=== PATIENT | male | born 1985 | race Caucasian/White ===

== ENCOUNTER 2017-03-26 10:32 | Outpatient (RCR) | payer MEDICARE, MEDICAID, SELFPAY ==
[2017-03-11 00:55] VITALS: BP 156/96; PULSE 74; RESP 18; TEMP 36.6; BMI 40.4
[2017-03-26 10:25] VITALS: BP 153/87; PULSE 82; RESP 16; TEMP 36.8; BMI 40.4
--- NOTE | 2017-03-26 17:59 | PN.PCM_ITS ---
Type of Wound Date of Service: 03/26/17 Chief Complaint: Nonhealing hidradenitis ulcers cluster lower anterior abdominal wall. History of Wound: Surgery 06/23/16 - Excision extensive hidradenitis involving skin and subcutaneous tissue and fascia with fascial closure lower anterior abdominal wall and pubic area and proximal anterior thighs with panniculectomy. Wound care - Silver. Operative culture - Acinetobacter baumannii, MRSA, Corynebacterium amycolatum/xer. He was placed on Doxycycline and has finished them. Another wound culture from 11/20/16 was done. It showed Staphylococcus aureus and Gram positive yony. He was placed on Levaquin. Another wound culture from 01/22/17 showed Staphylococcus aureus, MRSE, and Prevotella bivia and he was placed on Doxycycline and Flagyl. 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 The Doxycycline and Flagyl were stopped and he was placed on Levaquin. Prealbumin in the hospital on 06/24/15 was 18.4. He takes nutritional supplementation with protein to help the healing process. Today he denies fever. His appetite is average. He states he is not that hungry because of depression flareups. He hasn't seen anybody for this and is on no medication at the present time. He had a recent flareup of hidradenitis in his right inguinal area that is stable. Progress of Wound: Improved. - Physical Exam Vital Signs Temp Pulse Resp BP 98.2 F 82 16 153/87 H 03/26/17 10:25 03/26/17 10:25 03/26/17 10:25 03/26/17 10:25 Wound Measurements and Assessment - Nurse 1 - General Ulcer Measurement Start: 03/26/17 10:25 Freq: Status: Active Protocol: Activity Type Activity Date Activity User E-Sign Co-Sign Detail Recorded Client Recorded Date Recorded By Document 03/26/17 10:25 [facility] [id number] 03/26/17 10:35 BMF 03/26/17 10:25 Wound Center Nurse 1 [Ulcer Assessment Protocol: WC.WD.LOC] #1 Lower Abdomen cluster -Combined with other wound No -Current Size (cm) - Length 4.7 -Current Size (cm) - Width 2.1 -Current Size (cm) - Depth 0.2 -Total Square Cm 9.87 -Date of Last Picture (Recall this 03/26/17 field) -Photo Taken Yes -Tunneling No -Undermining/Tunneling No -Exudate Amt Medium (34-66%) -Exudate Type Serosanguineous -Wound Margin Distinct, Outline Attached -Granulation Amt Large (67-100%) -Granulation Quality Pale [place] -Slough/Fibrin Yes -Necrosis Amt Small (1-33%) -Necrotic Tissue Type Adherent Slough -Structure Exposed None/Limited to Skin Breakdown -Texture (Pauline-wound Skin Appearance) Scarring -Moisture (Pauline-wound Skin Appearance Assessed ) -Color (Pauline-wound Skin Appearance) Assessed -Temperature (Pauline-wound Skin No Abnormality Appearance) (Pt Warm) -Tenderness on Palpation (Pauline-wound Yes Skin Appearance) -Ulcer Cleansing Rinsed/ Irrigated with Saline -Foul Odor after Cleansing No -Anesthetic Used 4% Lidocaine Solution WC - Nurse 2 - General Ulcer CM Notes Start: 03/26/17 10:25 Freq: Status: Active Protocol: Activity Type Activity Date Activity User E-Sign Co-Sign Detail Recorded Client Recorded Date Recorded By Document 03/26/17 11:05 [id number] 03/26/17 11:08 03/26/17 11:05 Wound Center Nurse 2 [Procedure/Treatment] -Time 11:08 -Correct Patient Yes -Correct Side, Site, Position Yes -Correct Procedure Yes -Procedure Performed Yes -Type of Procedure Debridement -Clinical Debridement Subcutaneous -Post Debridement Size (cm) - Length 4.8 -Post Debridement Size (cm) - Width 2.1 -Post Debridement Size (cm) - Depth 0.2 -Total Square Cm 10.08 -Wound/Ulcer Outcome Not Healed -Ulcer Cleansing Rinsed/ Irrigated with Saline -Foul Odor after Cleansing No -Bioengineered Tissue No -Cetacaine [place] No -Bleeding Controlled with Pressure -Treatment Response Procedure Tolerated Well [See Physician Procedure note for Specifics] Pain Scale: 0-10 Numeric [Pain] -Is Patient Pain Free? Yes Debridement Note Post-Debridement Measurements/Treatment - Nurse 2 - General Ulcer CM Notes Start: 03/26/17 10:25 Freq: Status: Active Protocol: Activity Type Activity Date Activity User E-Sign Co-Sign Detail Recorded Client Recorded Date Recorded By Document 03/26/17 11:05 [id number] 03/26/17 11:08 JF 03/26/17 11:05 Wound Center Nurse 2 #1 Lower Abdomen cluster -Time 11:08 -Correct Patient Yes -Correct Side, Site, Position Yes -Correct Procedure Yes -Procedure Performed Yes -Type of Procedure Debridement -Clinical Debridement Subcutaneous -Post Debridement Size (cm) - Length 4.8 -Post Debridement Size (cm) - Width 2.1 -Post Debridement Size (cm) - Depth 0.2 -Total Square Cm 10.08 -Wound/Ulcer Outcome Not Healed -Ulcer Cleansing Rinsed/ Irrigated with Saline -Foul Odor after Cleansing No -Bioengineered Tissue No -Cetacaine [place] No -Bleeding Controlled with Pressure -Treatment Response Procedure Tolerated Well Pain Scale: 0-10 Numeric Is Patient Pain Free? Yes Wound debrided: #1 Lower anterior abdominal wall cluster. Laterality: Not Applicable Wound Grade/Stage: 3. Type of Debridement: Excisional debridement Anesthesia Used: 4% Lidocaine Solution Depth: Down to and including healthy tissue, in the subcutaneous layer Percentage of wound debrided: 100 Instrument Used: 5mm curette Tissue Removed: subcutaneous tissue. Severity: Fat Layer Exposed Amount of bleeding with debridement: Mild Bleeding Controlled with: Pressure Patient tolerated procedure well Assessment/Plan Assessment: 1. Nonhealing hidradenitis ulcers cluster lower anterior abdominal wall. 2. Hidradenitis bilateral inguinal areas extending onto pubic area. 3. Abdominal panniculus with panniculitis. 4. Abdominal wall skin crease intertrigo. 5. Family history of skin cancer. 6. Obesity. 7. s/p excision extensive hidradenitis involving skin and subcutaneous tissue and fascia with fascial closure lower anterior abdominal wall and pubic area and proximal anterior thighs with panniculectomy. 8. MRSA. 9. Right inguinal hidradenitis , stable. Plan: Continue Silver dressing changes three times per week to the ulcer cluster between the umbilicus and pubic area. His right inguinal flareup of hidradenitis is stable and will continue to observe. If it worsens then it would need to be excised. He finished the Doxycycline for Acinetobacter baumannii, and MRSA, and Corynebacterium amycolatum/xer from the OR. He had been on Doxycycline and Flagyl from the culture obtained on 01/22/17. It showed Staphylococcus aureus, MRSE, and Prevotella bivia. Those antibiotics were stopped when he was hospitalized for sepsis and had Listeria. He was placed on Levaquin. His Prealbumin from 06/23/16 was 18.4. He takes nutritional supplementation with protein to help the healing process. Followup 3 weeks. If these hidradenitis ulcers between the umbilicus and pubic area continue to recur, he will need further surgical debridement. It was noted the patient had a volar ganglion cyst right wrist. He is asymptomatic at this time. After his hidradenitis is under control with no more flareups, he states he will want to have this ganglion cyst evaluated and treated. Discussed his depression with him. He refuses medication since he doesn't like the way it makes him feel. He refuses to see a professional because they will want to place him on meds. He states he will be ok. Will discuss again at his next visit. He states he will think about it and he may call his PCP when he gets back home.
== END 2017-04-08 23:59 ==
LOC: WC 10:32
PROVIDERS: Visit Provider Surgery
DX: L73.2 Hidradenitis suppurativa (principal); M79.3 Panniculitis, unspecified; Z86.14 Personal history of Methicillin resistant Staphylococcus aureus infection; L30.4 Erythema intertrigo; E66.9 Obesity, unspecified; Z71.3 Dietary counseling and surveillance; L98.492 Non-pressure chronic ulcer of skin of other sites with fat layer exposed
CPT/HCPCS: 11042

== ENCOUNTER 2017-04-30 08:42 | Outpatient (RCR) | payer MEDICARE, MEDICAID, SELFPAY ==
[2017-04-09 01:11] VITALS: BP 153/87; PULSE 82; RESP 16; TEMP 36.8; BMI 40.4
[2017-04-30 09:12] VITALS: BP 156/80; PULSE 103; RESP 20; TEMP 37.5; BMI 40.4
--- NOTE | 2017-04-30 15:17 | PN.PCM_ITS ---
Type of Wound Date of Service: 04/30/17 Chief Complaint: Nonhealing hidradenitis ulcers cluster lower anterior abdominal wall. History of Wound: Surgery 06/23/16 - Excision extensive hidradenitis involving skin and subcutaneous tissue and fascia with fascial closure lower anterior abdominal wall and pubic area and proximal anterior thighs with panniculectomy. Wound care - Silver. Operative culture - Acinetobacter baumannii, MRSA, Corynebacterium amycolatum/xer. He was placed on Doxycycline and has finished them. Another wound culture from 11/20/16 was done. It showed Staphylococcus aureus and Gram positive yony. He was placed on Levaquin. Another wound culture from 01/22/17 showed Staphylococcus aureus, MRSE, and Prevotella bivia and he was placed on Doxycycline and Flagyl. 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 The Doxycycline and Flagyl were stopped and he was placed on Levaquin. Prealbumin in the hospital on 06/24/15 was 18.4. He takes nutritional supplementation with protein to help the healing process. Today he denies fever. His appetite is average. He states he is not that hungry because of depression flareups. He hasn't seen anybody for this and is on no medication at the present time. He had a recent flareup of hidradenitis in his right inguinal area that is stable. Progress of Wound: Improved. - Physical Exam Vital Signs Temp Pulse Resp BP 99.5 F H 103 H 20 H 156/80 H 04/30/17 09:12 04/30/17 09:12 04/30/17 09:12 04/30/17 09:12 Wound Measurements and Assessment - Nurse 1 - General Ulcer Measurement Start: 04/30/17 09:11 Freq: Status: Active Protocol: Activity Type Activity Date Activity User E-Sign Co-Sign Detail Recorded Client Recorded Date Recorded By Document 04/30/17 09:12 RAF [id number] 04/30/17 09:24 RAF 04/30/17 09:12 Wound Center Nurse 1 [Ulcer Assessment Protocol: [place].WD.LOC] #1 Lower Abdomen cluster -Combined with other wound Yes -Combined with (Name of Wound-Exactly LOWER ABDOMINAL as it is documented) CLUSTER -Current Size (cm) - Length 4.0 -Current Size (cm) - Width 2.0 -Current Size (cm) - Depth 0.1 -Total Square Cm 8.00 -Date of Last Picture (Recall this 04/30/17 field) -Photo Taken Yes -Epithelialization Small 1-33% -Tunneling No -Circular Undermining No -Classification - Thickness Full Thickness without Exposed Support Structure -Change in Wound Grade/Stage No Query Text:If change please identify the Stage/Grade in the comment (ie. S2 G3) -Exudate Amt Small (1-33%) -Exudate Type Serous -Wound Margin Distinct, Outline Attached -Granulation Amt Small (1-33%) -Granulation Quality Pale -Slough/Fibrin Yes -Necrosis Amt None Present (0 %) -Necrotic Tissue Type Adherent Slough -Structure Exposed None/Limited to Skin Breakdown -Texture (Pauline-wound Skin Appearance) Excoriation -Moisture (Pauline-wound Skin Appearance No Abnormality ) -Color (Pauline-wound Skin Appearance) No Abnormality -Temperature (Pauline-wound Skin No Abnormality Appearance) (Pt Warm) -Tenderness on Palpation (Pauline-wound No Skin Appearance) -Ulcer Cleansing Rinsed/ Irrigated with Saline -Foul Odor after Cleansing No -Anesthetic Used 4% Lidocaine Solution WC - Nurse 2 - General Ulcer CM Notes Start: 04/30/17 09:11 Freq: Status: Active Protocol: Activity Type Activity Date Activity User E-Sign Co-Sign Detail Recorded Client Recorded Date Recorded By Document 04/30/17 09:30 [id number] 04/30/17 09:31 04/30/17 09:30 Wound Center Nurse 2 [Procedure/Treatment] -Time 09:31 -Correct Patient Yes -Correct Side, Site, Position Yes -Correct Procedure Yes -Procedure Performed Yes -Type of Procedure Debridement -Clinical Debridement Subcutaneous -Post Debridement Size (cm) - Length 4.1 -Post Debridement Size (cm) - Width 2 -Post Debridement Size (cm) - Depth 0.1 -Total Square Cm 8.2 -Wound/Ulcer Outcome Not Healed -Ulcer Cleansing Rinsed/ Irrigated with Saline -Foul Odor after Cleansing No -Bioengineered Tissue No -Cetacaine [place] No -Bleeding Controlled with Pressure -Treatment Response Procedure Tolerated Well [See Physician Procedure note for Specifics] Pain Scale: 0-10 Numeric [Pain] -Is Patient Pain Free? Yes Debridement Note Post-Debridement Measurements/Treatment WC - Nurse 2 - General Ulcer CM Notes Start: 04/30/17 09:11 Freq: Status: Active Protocol: Activity Type Activity Date Activity User E-Sign Co-Sign Detail Recorded Client Recorded Date Recorded By Document 04/30/17 09:30 [email or web address] [id number] 04/30/17 09:31 [email or web address] 04/30/17 09:30 Wound Center Nurse 2 #1 Lower Abdomen cluster -Time 09:31 -Correct Patient Yes -Correct Side, Site, Position Yes -Correct Procedure Yes -Procedure Performed Yes -Type of Procedure Debridement -Clinical Debridement Subcutaneous -Post Debridement Size (cm) - Length 4.1 -Post Debridement Size (cm) - Width 2 -Post Debridement Size (cm) - Depth 0.1 -Total Square Cm 8.2 -Wound/Ulcer Outcome Not Healed -Ulcer Cleansing Rinsed/ Irrigated with Saline -Foul Odor after Cleansing No -Bioengineered Tissue No -Cetacaine [place] No -Bleeding Controlled with Pressure -Treatment Response Procedure Tolerated Well Pain Scale: 0-10 Numeric Is Patient Pain Free? Yes Wound debrided: #1 Lower anterior abdominal wall cluster. Laterality: Not Applicable Wound Grade/Stage: 3. Type of Debridement: Excisional debridement Anesthesia Used: 4% Lidocaine Solution Depth: Down to and including healthy tissue, in the subcutaneous layer Percentage of wound debrided: 100 Instrument Used: 3mm curette Tissue Removed: subcutaneous tissue. Severity: Fat Layer Exposed Amount of bleeding with debridement: Mild Bleeding Controlled with: Pressure Patient tolerated procedure well Assessment/Plan Assessment: 1. Nonhealing hidradenitis ulcers cluster lower anterior abdominal wall. 2. Hidradenitis bilateral inguinal areas extending onto pubic area. 3. Abdominal panniculus with panniculitis. 4. Abdominal wall skin crease intertrigo. 5. Family history of skin cancer. 6. Obesity. 7. s/p excision extensive hidradenitis involving skin and subcutaneous tissue and fascia with fascial closure lower anterior abdominal wall and pubic area and proximal anterior thighs with panniculectomy. 8. MRSA. 9. Right inguinal hidradenitis , stable. Plan: Continue Silver dressing changes three times per week to the ulcer cluster between the umbilicus and pubic area. His right inguinal flareup of hidradenitis is stable and will continue to observe. If it worsens then it would need to be excised. He finished the Doxycycline for Acinetobacter baumannii, and MRSA, and Corynebacterium amycolatum/xer from the OR. He had been on Doxycycline and Flagyl from the culture obtained on 01/22/17. It showed Staphylococcus aureus, MRSE, and Prevotella bivia. Those antibiotics were stopped when he was hospitalized for sepsis and had Listeria. He was placed on Levaquin. His Prealbumin from 06/23/16 was 18.4. He takes nutritional supplementation with protein to help the healing process. Followup 3 weeks. If these hidradenitis ulcers between the umbilicus and pubic area continue to recur, he will need further surgical debridement. It was noted the patient had a volar ganglion cyst right wrist. He is asymptomatic at this time. After his hidradenitis is under control with no more flareups, he states he will want to have this ganglion cyst evaluated and treated. Discussed his depression with him. He refuses medication since he doesn't like the way it makes him feel. He refuses to see a professional because they will want to place him on meds. He states he feels better at this time. He states he will call his PCP if his symptomatology worsens. Wrote a script for Levaquin since he states his ulcers respond to that antibiotic. He is scheduled to see Dr. Mcgovern in [place] this Sunday and a wound culture is planned. I told him to hold off on taking the Levaquin until his wound culture has been obtained by Dr. Mcgovern.
== END 2017-05-09 23:59 ==
LOC: WC 08:42
PROVIDERS: Visit Provider Surgery
DX: L73.2 Hidradenitis suppurativa (principal); Z86.14 Personal history of Methicillin resistant Staphylococcus aureus infection; L30.4 Erythema intertrigo; M79.3 Panniculitis, unspecified; E66.9 Obesity, unspecified; Z71.3 Dietary counseling and surveillance; L98.492 Non-pressure chronic ulcer of skin of other sites with fat layer exposed
CPT/HCPCS: 11042

== ENCOUNTER 2017-05-21 08:02 | Outpatient (RCR) | payer MEDICARE, MEDICAID, SELFPAY ==
[2017-04-30 09:12] VITALS: BP 156/80
[2017-05-10 00:44] VITALS: PULSE 103; RESP 20; TEMP 37.5
[2017-05-21 08:15] VITALS: BMI 40.4
--- NOTE | 2017-05-21 16:38 | PN.PCM_ITS ---
Type of Wound Date of Service: 05/21/17 Chief Complaint: Nonhealing hidradenitis ulcers cluster lower anterior abdominal wall. History of Wound: Surgery 06/23/16 - Excision extensive hidradenitis involving skin and subcutaneous tissue and fascia with fascial closure lower anterior abdominal wall and pubic area and proximal anterior thighs with panniculectomy. Wound care - Silver. Operative culture - Acinetobacter baumannii, MRSA, Corynebacterium amycolatum/xer. He was placed on Doxycycline and has finished them. Another wound culture from 11/20/16 was done. It showed Staphylococcus aureus and Gram positive yony. He was placed on Levaquin. Another wound culture from 01/22/17 showed Staphylococcus aureus, MRSE, and Prevotella bivia and he was placed on Doxycycline and Flagyl. 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 The Doxycycline and Flagyl were stopped and he was placed on Levaquin. Prealbumin in the hospital on 06/24/15 was 18.4. He takes nutritional supplementation with protein to help the healing process. Today he denies fever. His appetite is average. He states he is not that hungry because of depression flareups. He hasn't seen anybody for this and is on no medication at the present time. He had a recent flareup of hidradenitis in his right inguinal area that is stable. Progress of Wound: Improved. - Physical Exam Vital Signs Temp Pulse Resp BP 99.5 F H 103 H 20 H 156/80 H 05/10/17 00:44 05/10/17 00:44 05/10/17 00:44 04/30/17 09:12 General: Alert, Oriented x3 HEENT: PERRLA, EOMI Neck: Supple Lungs: Clear to auscultation Cardiovascular: Regular rate, Regular Rhythm Abdomen: Soft, Non-Distended Wound Measurements and Assessment WC - Nurse 1 - General Ulcer Measurement Start: 05/21/17 08:12 Freq: Status: Active Protocol: Activity Type Activity Date Activity User E-Sign Co-Sign Detail Recorded Client Recorded Date Recorded By Document 05/21/17 08:15 TM [id number] 05/21/17 08:18 TM 05/21/17 08:15 Wound Center Nurse 1 [Ulcer Assessment Protocol: [place].WD.LOC] #2 RIGHT ABDOMINAL FOLD HYDRADENTITIS -Combined with other wound No -Current Size (cm) - Length 0.5 -Current Size (cm) - Width 0.5 -Current Size (cm) - Depth 0.1 -Total Square Cm 0.25 -Date of Last Picture (Recall this 05/21/17 field) -Photo Taken Yes -Epithelialization Small 1-33% -Tunneling No -Undermining/Tunneling No -Circular Undermining No -Classification - Thickness Full Thickness without Exposed Support Structure -Exudate Amt Small (1-33%) -Exudate Type Serosanguineous -Wound Margin Distinct, Outline Attached -Granulation Amt Medium (34-66%) -Granulation Quality [place] -Slough/Fibrin Yes -Necrosis Amt None Present (0 %) -Necrotic Tissue Type Adherent Slough -Structure Exposed Fascia Fat Layer Exposed -Texture (Pauline-wound Skin Appearance) Scarring -Moisture (Pauline-wound Skin Appearance Dry/Scaly ) -Color (Pauline-wound Skin Appearance) Erythema -Temperature (Pauline-wound Skin No Abnormality Appearance) (Pt Warm) -Tenderness on Palpation (Pauline-wound No Skin Appearance) -Ulcer Cleansing Rinsed/ Irrigated with Saline -Foul Odor after Cleansing No -Anesthetic Used 5% Lidocaine Gel #1 Lower Abdomen cluster -Combined with other wound No -Current Size (cm) - Length 0 -Current Size (cm) - Width 0 -Current Size (cm) - Depth 0 -Total Square Cm 0 -Date of Last Picture (Recall this 05/21/17 field) -Photo Taken Yes -Epithelialization Large 67-100% -Tunneling No -Undermining/Tunneling No -Circular Undermining No -Classification - Thickness Full Thickness without Exposed Support Structure -Exudate Amt None Present (0 %) -Wound Margin Distinct, Outline Attached -Granulation Amt Large (67-100%) -Granulation Quality [place] -Slough/Fibrin No -Necrosis Amt None Present (0 %) -Structure Exposed None/Limited to Skin Breakdown -Texture (Pauline-wound Skin Appearance) Scarring -Moisture (Pauline-wound Skin Appearance Dry/Scaly ) -Color (Pauline-wound Skin Appearance) No Abnormality -Temperature (Pauline-wound Skin No Abnormality Appearance) (Pt Warm) -Tenderness on Palpation (Pauline-wound No Skin Appearance) -Ulcer Cleansing Rinsed/ Irrigated with Saline -Foul Odor after Cleansing No [Edema Assessment] -Lower Limb Edema Present No - Nurse 2 - General Ulcer CM Notes Start: 05/21/17 08:12 Freq: Status: Active Protocol: Activity Type Activity Date Activity User E-Sign Co-Sign Detail Recorded Client Recorded Date Recorded By Document 05/21/17 08:32 [id number] 05/21/17 08:33 05/21/17 08:32 Wound Center Nurse 2 [Procedure/Treatment] #2 RIGHT ABDOMINAL FOLD HYDRADENTITIS -Correct Patient No -Correct Side, Site, Position No -Correct Procedure No -Procedure Performed No -Post Debridement Size (cm) - Length 0 -Post Debridement Size (cm) - Width 0 -Post Debridement Size (cm) - Depth 0 -Total Square Cm 0 -Wound/Ulcer Outcome Healed- Epithelialized [See Physician Procedure note for Specifics] Pain Scale: 0-10 Numeric [Pain] -Is Patient Pain Free? Yes Neurological: Cranial nerves II-XII grossly intact Psych/Mental Status: Normal Affect, Appropriate Debridement Note Post-Debridement Measurements/Treatment WC - Nurse 2 - General Ulcer CM Notes Start: 05/21/17 08:12 Freq: Status: Active Protocol: Activity Type Activity Date Activity User E-Sign Co-Sign Detail Recorded Client Recorded Date Recorded By Document 05/21/17 08:32 [id number] 05/21/17 08:33 05/21/17 08:32 Wound Center Nurse 2 #2 RIGHT ABDOMINAL FOLD HYDRADENTITIS -Correct Patient No -Correct Side, Site, Position No -Correct Procedure No -Procedure Performed No -Post Debridement Size (cm) - Length 0 -Post Debridement Size (cm) - Width 0 -Post Debridement Size (cm) - Depth 0 -Total Square Cm 0 -Wound/Ulcer Outcome Healed- Epithelialized Pain Scale: 0-10 Numeric Is Patient Pain Free? Yes Wound debrided: #2 Lower anterior abdominal wall cluster. Laterality: Not Applicable Wound Grade/Stage: 3. No debridement was completed today - the ulcer has healed. Assessment/Plan Assessment: 1. Nonhealing hidradenitis ulcers cluster lower anterior abdominal wall. 2. Hidradenitis bilateral inguinal areas extending onto pubic area. 3. Abdominal panniculus with panniculitis. 4. Abdominal wall skin crease intertrigo. 5. Family history of skin cancer. 6. Obesity. 7. s/p excision extensive hidradenitis involving skin and subcutaneous tissue and fascia with fascial closure lower anterior abdominal wall and pubic area and proximal anterior thighs with panniculectomy. 8. MRSA. 9. Right inguinal hidradenitis , stable. Plan: Continue Silver dressing changes three times per week to the ulcer cluster between the umbilicus and pubic area. His right inguinal flareup of hidradenitis is stable and will continue to observe. If it worsens then it would need to be excised. He finished the Doxycycline for Acinetobacter baumannii, and MRSA, and Corynebacterium amycolatum/xer from the OR. He had been on Doxycycline and Flagyl from the culture obtained on 01/22/17. It showed Staphylococcus aureus, MRSE, and Prevotella bivia. Those antibiotics were stopped when he was hospitalized for sepsis and had Listeria. He was placed on Levaquin. His Prealbumin from 06/23/16 was 18.4. He takes nutritional supplementation with protein to help the healing process. Followup 3 weeks. If these hidradenitis ulcers between the umbilicus and pubic area continue to recur, he will need further surgical debridement. It was noted the patient had a volar ganglion cyst right wrist. He is asymptomatic at this time. After his hidradenitis is under control with no more flareups, he states he will want to have this ganglion cyst evaluated and treated. Discussed his depression with him. He refuses medication since he doesn't like the way it makes him feel. He refuses to see a professional because they will want to place him on meds. He states he feels better at this time. He states he will call his PCP if his symptomatology worsens. Wrote a script for Levaquin since he states his ulcers respond to that antibiotic. He is scheduled to see Dr. Mcgovern in [place] this Sunday and a wound culture is planned. I told him to hold off on taking the Levaquin until his wound culture has been obtained by Dr. Mcgovern.
== END 2017-06-06 23:59 ==
LOC: WC 08:02
PROVIDERS: Visit Provider Surgery
DX: L73.2 Hidradenitis suppurativa (principal); L30.4 Erythema intertrigo; E66.9 Obesity, unspecified; Z71.3 Dietary counseling and surveillance; Z86.14 Personal history of Methicillin resistant Staphylococcus aureus infection; M79.3 Panniculitis, unspecified
CPT/HCPCS: 99212; G0463

== ENCOUNTER 2018-04-16 08:47 | Inpatient (IN) | payer MEDICARE, MEDICAID, SELFPAY ==
[2018-03-14 14:51] VITALS: BMI 57.6
--- NOTE | 2018-04-15 23:10 | HP.PCM_ITS ---
History and Physical Date of Admission: 04/16/18 HISTORY OF PRESENT ILLNESS Comes in today for further evaluation of his longstanding hidradenitis in multiple areas. These include the scalp, the bilateral medial arms and axillary and chest wall areas, bilateral breasts, bilateral inguinal areas extending into the pubic area, the lower anterior abdominal wall skin crease and bilateral perianal area. He finished the excision of hidradenitis on his scalp with skin grafting, the most recent skin graft in 03/23. In 10/22 he underwent bilateral mastectomies for extensive hidradenitis. In 02/22, he underwent excision extensive hidradenitis involving skin and subcutaneous tissue lower anterior abdominal wall and pubic area with panniculectomy. He has had intermittent breakdown ulcerations in the lower anterior abdominal wall that have since healed. He denies any fever. He denies any trauma. He thinks he develops breakdown ulcerations from the elastic on his clothing. He presents at this time for further evaluation and treatment. PAST MEDICAL HISTORY Anemia Asthma Back pain Bone fracture Depression Gastrointestinal problem Hidradenitis Seasonal allergies Hypertension PAST SURGICAL HISTORY Hidradenitis surgery, multiple colonoscopy fracture of right ankle ALLERGIES Cephalosporins morphine Penicillins Sulfa (Sulfonamide Antibiotics) MEDICATIONS Trazodone HCl Fluoxetine [Prozac] Topiramate [Topamax] Diazepam [Valium] Ferrous Sulfate Hydromorphone HCl [Dilaudid] FAMILY HISTORY Mother - Hypertension, Kidney disease, Diabetes, Cancer of kidney Father - Hypertension Uncle - Colon cancer SOCIAL HISTORY Smoking Status: Never smoker alcohol intake: never substance use type: does not use REVIEW OF SYSTEMS General - Denies fever and weight loss. Has fatigue. Eyes - Denies cataracts and glaucoma. ENT - Denies nasal congestion and sore throat. Endocrine - Denies excessive thirst and urination. Has cold intolerance and heat intolerance. Skin - Denies skin cancer. Has extensive hidradenitis involving scalp, bilateral medial arms and axillary and chest wall areas, bilateral breasts, bilateral inguinal areas extending onto pubic area, lower anterior abdominal wall skin crease, and bilateral perianal area. Has family history of skin cancer. Musculoskeletal - Denies joint pain, joint stiffness, weakness of muscles and joints, and arthritis. Has back pain. Neuro - Denies headaches. Cardiovascular - Denies chest pain and shortness of breath with exertion. Has fatigue. Psych - Denies anxiety. Has depression. Respiratory - Denies chronic cough and shortness of breath. Has asthma. Gastrointestinal - Denies nausea, vomiting, diarrhea. Has constipation. Hematologic - Denies abnormal bruising and bleeding. Has anemia. Genitourinary - Denies hematuria and urinary frequency. PHYSICAL EXAMINATION General - Alert and Oriented HEENT - PERRL. EOMI. Throat is clear. No suspicious lesions noted. had extensive area of hidradenitis involving the occipital scalp extending onto parietal and temporal scalp areas that has been excised and skin grafted. Neck - Supple and nontender. No cervical adenopathy. No suspicious lesions noted. Chest Wall - Has extensive hidradenitis involving the lateral chest wall extending into the axillary areas. Induration present. Nontender. No acute abscess seen. Measures 20 x 20 cm for each side. Breasts - has healed incisions from previous bilateral mastectomies for his extensive breast hidradenitis. Lungs - Clear to auscultation. Heart - Regular rate and rhythm. Abdomen - Soft and nondistended. Has large abdominal incision after previous surgery. Has large abdominal panniculus and associated panniculitis. No inguinal adenopathy. Has intermittent abdominal wall skin crease intertrigo. Has extensive hidradenitis in bilateral inguinal areas extending onto the pubic area. Measures 25 cm on each side and 25 cm in the pubic area. Induration present. Nontender. No acute abscess seen. Rectal - Has extensive hidradenitis in his perianal area. Measures 20 cm bilaterally. No acute abscess seen. Induration present. Nontender. Extremities - FROM. No axillary adenopathy. Radial pulses are palpable. In his medial arms bilaterally are areas of extensive hidradenitis measuring 18 x 14 cm for each area. Extends into the axilla. Induration present. Nontender. No acute abscess seen. Neuro - CN II-XII grossly intact. Psych - Normal mood and affect. ASSESSMENT 1. Hidradenitis lower anterior abdominal wall skin crease. 2. Hidradenitis bilateral inguinal areas extending onto pubic area. 3. Abdominal panniculus with panniculitis. 4. Abdominal wall skin crease intertrigo. 5. Hidradenitis bilateral lateral chest wall extending into axillary areas. 6. Hidradenitis bilateral medial arms extending into axillary areas. 7. Hidradenitis bilateral axillary areas. 8. Hidradenitis bilateral perianal area. 9. Hidradenitis occipital and parietal scalp that has been excised and skin grafted. 10. Obesity. 11. Family history of skin cancer. PLAN Patient has intermittent breakdown ulcerations in his lower anterior abdominal wall and in his abdominal wall skin crease with associated intertrigo. At present, these ulcerations have since healed. He did undergo excision extensive hidradenitis involving skin and subcutaneous tissue lower anterior abdominal wall and pubic area with panniculectomy on 02/15/16. Recommend surgical preparation lower anterior abdominal wall with excisional debridement skin, subcutaneous tissue, and fascia for necrotizing soft tissue hidradenitis infections. Would leave the wound open and begin postop wound care with the VAC. Would send tissue to Pathology for analysis to rule out carcinoma and send tissue to Microbiology for culture. A positive culture may necessitate antibiotic therapy. Will treat him perioperatively with Vancomycin because of a resistant Staphylococcus in the past. Anticipate increased metabolic demands after the surgery. Will check a Prealbumin. Will need nutritional supplementation with protein to help the healing process. If there is a plateau in the healing process, can proceed with delayed secondary wound closure or with skin grafting. After discharge, he would [facility] [place] since it is closer to his home. The patient was informed of the risks and complications of the procedure including alternatives to surgery. These were discussed with the patient personally. The patient voices understanding and wishes to proceed. Some of the risks and complications were included in a form from the [employer] [place] [employer]. Surgery will be done under general anesthesia with an overnight stay at the hosp ital. Will discharge him when he is tolerating the dressing changes with oral analgesics.
[2018-04-16] VITALS (9 sets, daily range): BP systolic 111–141; BP diastolic 47–79; PULSE 68–87; RESP 14–18; TEMP 36.2–37.1; O2SAT 92–97; BMI 55.2
[2018-04-16] MEDS: Vancomycin IV 1,000 MG/200 ML BAG 200 MG IV (10:03)
--- NOTE | 2018-04-16 10:55 | HID_PTH ---
PATIENT: SHEILA NIELSON LOC: MS3 U#:[id number] AGE/SX: 32/M ROOM: MS319 RE04/16/[address]: Dr. Cosme Weinstein MD : 1985 BED: 1 DIS: 04/18/2018 SPEC #: [id number] RECD: 04/16/18 16:14 STATUS: JESSICA REMike #: [id number] ELIECER: 04/16/18 10:[address]: Cosme Weinstein DEPT: SURGICAL PATHOLOGY RECD BY: Anjel Cole ENTERED: 04/17/18 10:11 SP TYPE: Devint KRISHNA DR: No Primary Care Phys Tissues: Abdominal wall, NOS Procedures: Surgery Specimen Level III HEADER OPERATION: Surgical preparation abdominal wall with excisional debridement PRE-OP DIAGNOSIS: Hidradenitis lower anterior abdominal wall skin crease TISSUE SUBMITTED: Abdominal wall necrotizing hidradenitis MICROSCOPIC DIAGNOSIS Abdominal wall necrotizing hidradenitis: Pieces of skin with underlying tissue with focal chronic inflammation and foreign body giant cell reaction. MANUELA:ubaldo 04/18/18 COMMENT Please make reference to previous specimen ([id number]) skin and soft tissue of abdomen, excision with diagnosis of skin with underlying tissue containing extensive microabscess formation, granulation tissue and focal ruptured epidermal inclusion cysts with associated reactive changes and ([id number]) abdominal wall hidradenitis, excision with diagnosis of skin with underlying tissue with multifocal acute and chronic inflammation, abscess formation and foreign body giant cell reaction. MICROSCOPIC DESCRIPTION Slides are reviewed. GROSS DESCRIPTION Received in fixative is one container labeled with the patient's name and designated abdominal wall necrotizing hidradenitis. The specimen consists of multiple pieces of skin with underlying tissue that in aggregate measure 26 x 25 x 7 cm. No mass lesion is identified. Immigration Judge sections are submitted in three cassettes. / MANUELA:ubaldo 04/17/18 TC:3 CPT: 42131
--- NOTE | 2018-04-16 14:20 | PCM.IMDPSTOP ---
Immediate Post-Op Note Date of Procedure: 04/16/18 Primary Surgeon/Physician: Cosme Weinstein MD chief librarian branch: Keren Cobian. Pre-Operative Diagnosis: 1. Hidradenitis lower anterior abdominal wall skin crease. 2. Hidradenitis bilateral inguinal areas extending onto pubic area. 3. Abdominal panniculus with panniculitis. 4. Abdominal wall skin crease intertrigo. 5. Obesity. 6. Family history of skin cancer. Post-Operative Diagnosis: Same. Surgery/Procedure Performed:: Surgical preparation lower anterior abdominal wall and pubic area with excision skin and subcutaneous tissue for necrotizing soft tissue hidradenitis infection (798 cm2). Description of Surgical Findings:: Comes in today for further evaluation of his longstanding hidradenitis in multiple areas. These include the scalp, the bilateral medial arms and axillary and chest wall areas, bilateral breasts, bilateral inguinal areas extending into the pubic area, the lower anterior abdominal wall skin crease and bilateral perianal area. He finished the excision of hidradenitis on his scalp with skin grafting, the most recent skin graft in 03/23. In 10/22 he underwent bilateral mastectomies for extensive hidradenitis. In 02/22, he underwent excision extensive hidradenitis involving skin and subcutaneous tissue lower anterior abdominal wall and pubic area with panniculectomy. He has had intermittent breakdown ulcerations in the lower anterior abdominal wall that have since healed. He denies any fever. He denies any trauma. He thinks he develops breakdown ulcerations from the elastic on his clothing. Today he underwent surgical preparation lower anterior abdominal wall and pubic area with excision skin and subcutaneous tissue for necrotizing soft tissue hidradenitis infection (798 cm2). Size of defect lower anterior abdominal wall and pubic area - 57 x 14 x 9 cm. Estimated Blood Loss: 100 ml. Specimen's removed: 1. Lower anterior abdominal wall and pubic area hidradenitis to Pathology and Microbiology. 2. MRSA Wound DNA by PCR. Drains: None. Type of Anesthesia:: General - Admit VTE Documentation VTE Present on Admission: No VTE Mechan Device Prophylaxis: SCD's VTE Pharm Prophylaxis ordered?: Yes
--- NOTE | 2018-04-16 14:24 | OP.PN_ITS ---
Immediate Post-Op Note Date of Procedure: 04/16/18 Primary Surgeon/Physician: Cosme Weinstein MD dermatology physician assistant: Keren Cobian. Pre-Operative Diagnosis: 1. Hidradenitis lower anterior abdominal wall skin crease. 2. Hidradenitis bilateral inguinal areas extending onto pubic area. 3. Abdominal panniculus with panniculitis. 4. Abdominal wall skin crease intertrigo. 5. Obesity. 6. Family history of skin cancer. Post-Operative Diagnosis: Same. Surgery/Procedure Performed:: Surgical preparation lower anterior abdominal wall and pubic area with excision skin and subcutaneous tissue for necrotizing soft t issue hidradenitis infection (798 cm2). Description of Surgical Findings:: Comes in today for further evaluation of his longstanding hidradenitis in multiple areas. These include the scalp, the bilateral medial arms and axillary and chest wall areas, bilateral breasts, bilateral inguinal areas extending into the pubic area, the lower anterior abdominal wall skin crease and bilateral perianal area. He finished the excision of hidradenitis on his scalp with skin grafting, the most recent skin graft in 03/23. In 10/22 he underwent bilateral mastectomies for extensive hidradenitis. In 02/22, he underwent excision extensive hidradenitis involving skin and subcutaneous tissue lower anterior abdominal wall and pubic area with panniculectomy. He has had intermittent b reakdown ulcerations in the lower anterior abdominal wall that have since healed. He denies any fever. He denies any trauma. He thinks he develops breakdown ulcerations from the elastic on his clothing. Today he underwent surgical preparation lower anterior abdominal wall and pubic area with excision skin and subcutaneous tissue for necrotizing soft tissue hidradenitis infection (798 cm2). Size of defect lower anterior abdominal wall and pubic area - 57 x 14 x 9 cm. Estimated Blood Loss: 100 ml. Specimen's removed: 1. Lower anterior abdominal wall and pubic area hidradenitis to Pathology and Microbiology. 2. MRSA Wound DNA by PCR. Drains: None. Type of Anesthesia:: General - Admit VTE Documentation VTE Present on Admission: No VTE Mechan Device Prophylaxis: SCD's VTE Pharm Prophylaxis ordered?: Yes
[2018-04-16] MEDS: Lactated Ringers 1,000 ML 60 ML IV (16:03)
[2018-04-16] MEDS: Ondansetron 4 MG/2 ML Vial IV (16:08)
[2018-04-16] MEDS: HYDROmorphone 1 MG/ML Syringe IV ×3 (16:09→23:02)
[2018-04-16 16:33] LABS: Anion Gap 10 (5-15); BUN 18 mg/dL (7-18); BUN/Creat Ratio 15.9 RATIO (10-20); Calcium,Total 8.2 mg/dL (8.5-10.1); Chloride 106 mmol/L (98-107); Creatinine, Serum 1.13 mg/dL (0.70-1.30); EST Glomerular Filtration Rate 81 mL/min (>60); Est Glom Filt Rate - Afr Amer 98 mL/min (>60); Estimated Creatinine Clearance 111.14 ml/min; Glucose 114 mg/dL (74-106); Potassium 4.4 mmol/L (3.5-5.1); Sodium Level 141 mmol/L (136-145)
[2018-04-16 16:45] LABS: M R Staph aureus DNA By PCR Negative (Negative); Probe Check PASS; Staph aureus DNA By PCR NEGATIVE (Negative)
--- NOTE | 2018-04-16 18:05 | PCM.OPRPT ---
Report of Operation Date of Procedure: 04/16/18 Pre-Operative Diagnosis: 1. Hidradenitis lower anterior abdominal wall skin crease. 2. Hidradenitis bilateral inguinal areas extending onto pubic area. 3. Abdominal panniculus with panniculitis. 4. Abdominal wall skin crease intertrigo. 5. Obesity. 6. Family history of skin cancer. Post-Operative Diagnosis: Same. Surgery/Procedure Performed:: Surgical preparation lower anterior abdominal wall and pubic area with excision skin and subcutaneous tissue for necrotizing soft tissue hidradenitis infection (798 cm2). Description of Surgical Findings:: Comes in today for further evaluation of his longstanding hidradenitis in multiple areas. These include the scalp, the bilateral medial arms and axillary and chest wall areas, bilateral breasts, bilateral inguinal areas extending into the pubic area, the lower anterior abdominal wall skin crease and bilateral perianal area. He finished the excision of hidradenitis on his scalp with skin grafting, the most recent skin graft in 03/23. In 10/22 he underwent bilateral mastectomies for extensive hidradenitis. In 02/22, he underwent excision extensive hidradenitis involving skin and subcutaneous tissue lower anterior abdominal wall and pubic area with panniculectomy. He has had intermittent breakdown ulcerations in the lower anterior abdominal wall that have since healed. He denies any fever. He denies any trauma. He thinks he develops breakdown ulcerations from the elastic on his clothing. Patient was informed of the risks and complications of the procedure including alternatives to surgery. These were discussed with the patient personally. Patient voices understanding and wishes to proceed. Some of the risks and complications were included in a form from the [place] [employer]. Size of defect lower anterior abdominal wall and pubic area - 57 x 14 x 9 cm. signals collection technician: Keren Cobian. Type of Anesthesia:: General Specimen's removed: 1. Lower anterior abdominal wall and pubic area hidradenitis to Pathology and Microbiology. 2. MRSA Wound DNA by PCR. Drains: None. Estimated Blood Loss (mL): 100 ml. Description of Procedure: Patient was taken to OR in supine position and was placed under general anesthesia. The and abdominal wall and pubic area was prepped and draped in the usual fashion. SCD's were placed for DVT prophylaxis. Perioperative antibiotics were given intravenously. Using xylocaine with epinephrine, the lower anterior abdominal wall and pubic area was infiltrated. After waiting 5 minutes for the anesthetic to take effect, I made a large horizontal elliptical incision from the abdominal wall skin crease and pubic area inferiorly to just inferior to the umbilicus superiorly. This encompassed all the areas on his skin of chronic induration from previous hidradenitis infection. Dissection was carried down through the subcutaneous tissue and Gilmer's fascia down to the abdominal wall fascia. Extensive scar tissue was present extending to the abdominal wall indicative of chronic widespread infection. Some scattered areas of localized pus was seen. A lot of fat necrosis was seen with milky drainage with associated necrotizing soft tissue infection. Some of the tissue was sent to Microbiology for culture. The rest of the tissue was sent to Pathology for analysis to rule out carcinoma. An MRSA Wound DNA by PCR was also done because of his previous history of resistant Staph. The wound was irrigated with saline. Hemostasis was obtained with electrocautery. The size of the abdominal wall and pubic wound was 57 x 14 x 9 cm or 798 cm2. The wound was then dressed with Mepitel nonadherent dressing followed by Kerlix gauze and Betadine followed by dry Kerlix gauze and ABD pads compression dressing. Patient tolerated the procedure well and was sent to PACU in satisfactory condition. Patient will be sent upstairs for continued postop care. The VAC will be applied tomorrow. He will continue Vancomycin perioperatively for his previous history of resistant Staph. Grafts/Implants Used: None. - Complications None. - Admit VTE Documentation VTE Present on Admission: No VTE Mechan Device Prophylaxis: SCD's VTE Pharm Prophylaxis ordered?: Yes Code Visit Surgery Charges CPT - 31825 ICD-10 - L73.2, E65, M79.3, L30.4, M79.89, Z80.8, E66.01
[2018-04-16] MEDS: oxyCODONE 5 MG Tablet 10 MG PO ×2 (18:13→22:13)
--- NOTE | 2018-04-16 21:04 | PCM.RX.CS ---
Consult Pharmacy has been consulted to manage selected antiobiotic: Vancomycin Type of Consult: New start Suspected Infection: Skin/Soft tissue Prior Doses of Antibiotics Received/Current Regimen: Vancomycin 1000mg x1 preop given 04/16/18 at 1003 Labs: Sodium 141 mmol/L (136-145) 04/16/18 15:59 Potassium 4.4 mmol/L (3.5-5.1) 04/16/18 15:59 Chloride 106 mmol/L (98-107) 04/16/18 15:59 Carbon Dioxide 25.0 mmol/L (21.0-32.0) 04/16/18 15:59 Anion Gap 10 (5-15) 04/16/18 15:59 BUN 18 mg/dL (7-18) 04/16/18 15:59 Creatinine 1.13 mg/dL (0.70-1.30) 04/16/18 15:59 Est GFR (MDRD) Af Amer 98 mL/min (>60) 04/16/18 15:59 Est GFR (MDRD) Non-Af 81 mL/min (>60) 04/16/18 15:59 BUN/Creatinine Ratio 15.9 RATIO (10-20) 04/16/18 15:59 Glucose 114 mg/dL (74-106) H 04/16/18 15:59 Weight used for dosin kg Estimated Creatinine Clearance: 111ml/min Goal Trough: 10-15 mcg/mL Pharmacy Plan for Drug Dosing: Recommend Vancomycin 1750mg IV q12h starting 04/16/18 at 1900. Trough to be drawn before the 4th dose on 04/18/18 at 0630 Pharmacy Service will continue to monitor and adjust dosing as required. Follow-Up Labs: Trough Vancomycin - 04/18/18 at 0630 Labs to be done on [date and time ordered]: trough level 04/18/18 at 0630
[2018-04-16 22:12] LABS: Hemoglobin A1c 5.8 % (4.2-6.3)
[2018-04-16] MEDS: FLUoxetine 20 MG Capsule PO (22:13)
[2018-04-16] MEDS: Docusate Sodium 100 MG Capsule PO (22:13)
[2018-04-16] MEDS: diazePAM 5 MG Tablet PO (22:16)
--- NOTE | 2018-04-16 23:07 | NURSING ---
pt did well ambulating to bathroom to void and back to bed. see MAR for pain meds given.
[2018-04-17] MEDS: traZODone 50 MG Tablet PO ×2 (00:51→22:17)
[2018-04-17] MEDS: Lactated Ringers 1,000 ML 60 ML IV ×2 (02:32→23:51)
[2018-04-17] MEDS: Ondansetron 4 MG/2 ML Vial IV (02:32)
[2018-04-17] MEDS: HYDROmorphone 1 MG/ML Syringe IV ×5 (02:32→22:22)
[2018-04-17] MEDS: oxyCODONE 5 MG Tablet 10 MG PO ×2 (02:43→11:20)
[2018-04-17 03:03] VITALS: BP 140/93; PULSE 89; RESP 16; TEMP 36.9; O2SAT 94
[2018-04-17 06:37] LABS: Hematocrit 44.3 % (40-54); Hemoglobin 14.1 g/dl (13.0-16.5); Mean Corp Hgb Conc 31.8 g/gl (32-36); Mean Corpuscular Hgb 29.3 pg (27.0-32.0); Mean Corpuscular Volume 91.9 fL (80-94); Mean Platelet Vol. 10.2 fl (6.2-12.0); Platelet Count 310 K/mm3 (150-450); RBC Distribution Width CV 13.4 % (11.6-14.6); RBC Distribution Width SD 44.4 fl (35.1-43.9); Red Blood Count 4.82 M/mm3 (4.6-6.2); White Blood Count 17.2 K/mm3 (4.4-11.0)
[2018-04-17] MEDS: Enoxaparin 40 MG/0.4 ML Syringe SC (06:40)
[2018-04-17 06:49] LABS: Scan Indicated on CBC? Y/N NO
[2018-04-17 07:11] VITALS: O2SAT 94
[2018-04-17 07:16] LABS: ALB/GLOB Ratio 0.7 RATIO (0.9-2.4); AST(SGOT) 18 U/L (15-37); Alanine Aminotransfer ALT/SGPT 28 U/L (16-61); Albumin, Serum 3.3 g/dL (3.2-5.0); Alkaline Phosphatase 65 U/L (45-117); Anion Gap 11 (5-15); BUN 19 mg/dL (7-18); BUN/Creat Ratio 18.4 RATIO (10-20); Calcium,Total 7.9 mg/dL (8.5-10.1); Chloride 104 mmol/L (98-107); Creatinine, Serum 1.03 mg/dL (0.70-1.30); EST Glomerular Filtration Rate 90 mL/min (>60); Est Glom Filt Rate - Afr Amer 109 mL/min (>60); Estimated Creatinine Clearance 121.93 ml/min; Globulin 4.5 g/dL (2.2-4.2); Glucose 148 mg/dL (74-106); Prealbumin 27.9 mg/dL (20.0-40.0); Protein, Total 7.8 g/dL (6.4-8.2); Sodium Level 139 mmol/L (136-145)
[2018-04-17] MEDS: diazePAM 5 MG Tablet PO (09:38)
--- NOTE | 2018-04-17 09:55 | CASEMGMT ---
LIZZETTE MOTA Face to Face with patient for initial transition planning/care coordination assessment. RN NAKUL introduced self and role at [facility]. Patient lying in bed, alert and oriented. Patient willing to participate in assessment and is able to answer all questions appropriately. Care providers, pharmacy, and demographics verified. Patient wishes to discharge home with home health care with [facility]. Patient states he has no further needs or concerns at this time. CM to follow for discharge planning needs that may arise. PCP: None, Dr. Weinstein will need to follow for HHC. Patient states he has an appt to get established with PCP Specialists: None Preferred Pharmacy: [facility] Insurance: [employer] Prescription Benefit: Yes Living Will/HPOA: No LNOK: Mother Living Arrangements: Patient lives with mother in 1 story home, patient states he is independent at home. Transportation: Self/mother DME/HHC: Denies need for DME. Disposition Plan: Patient to discharge with HHC, family support, and follow-up plans in place. Mariely MABRY, RN, CM
[2018-04-17] MEDS: Docusate Sodium 100 MG Capsule PO ×2 (11:20→22:17)
[2018-04-17 11:30] VITALS: BP 146/90; PULSE 95; RESP 18; TEMP 36.7; O2SAT 92
--- NOTE | 2018-04-17 11:33 | NURSING ---
wound photo: lower abdomen
--- NOTE | 2018-04-17 16:24 | CASEMGMT ---
LIZZETTE MOTA called and sent referral to [facility]. [facility] is able to accept the patient with start of care on Sunday04/19/18. LIZZETTE MOTA will continue to follow this patient and plan for a safe discharge.
[2018-04-17 17:00] VITALS: BP 132/73; PULSE 104; RESP 18; TEMP 36.8; O2SAT 94
[2018-04-17 22:03] VITALS: BP 113/62; PULSE 100; RESP 18; TEMP 37.1; O2SAT 96
[2018-04-17] MEDS: FLUoxetine 20 MG Capsule PO (22:17)
[2018-04-17] MEDS: 0.9% NaCl Peripheral Flush Adult/Peds IV (22:23)
--- NOTE | 2018-04-17 22:28 | PCM.PN.SRG ---
Subjective: Postop #1 Patient is resting comfortably after the VAC was applied today with some pain. - Physical Exam General: Alert, Oriented x3 HEENT: PERRLA, EOMI Oral: Moist Mucosa Neck: Supple Abdomen: Soft, Non-Distended Skin: Ulcer/ Wound - Abdominal wall and pubic wound is stable. No active bleeding noted. VAC applied today. Neurological: Cranial nerves II-XII grossly intact Psych/Mental Status: Normal Affect, Appropriate Vital Signs Temp Pulse Resp BP Pulse Ox 98.8 F 100 18 113/62 96 04/17/18 22:03 04/17/18 22:03 04/17/18 22:03 04/17/18 22:03 04/17/18 22:03 Oxygen Flow Rate (L/min) 2 Oxygen Delivery Method Room Air Weight: 430 lb 5.477 oz Body Mass Index (BMI) 55.2 Intake and Output for Last 24 Hours 04/15/18 04/16/18 04/17/18 23:59 23:59 23:59 Intake Total 1827 / 1827 4638 / 4638 Output Total 550 / 550 Balance 1827 / 1827 4088 / 4088 Microbiology Past 72 Hours 04/16/18 14:43 Gram Stain - Final Tissue - Abdominal Wound Culture - Preliminary No growth-Final to follow Laboratory Tests Past 24 Hrs 04/17/18 04/17/18 05:56 05:56 WBC 17.2 H RBC 4.82 Hgb 14.1 Hct 44.3 MCV 91.9 MCH 29.3 MCHC 31.8 L RDW 13.4 RDW Differential 44.4 H Plt Count 310 MPV 10.2 Sodium 139 Potassium 5.0 Chloride 104 Carbon Dioxide 24.0 Anion Gap 11 BUN 19 H Creatinine 1.03 Estim Creat Clear Calc 121.93 Est GFR (MDRD) Af Amer 109 Est GFR (MDRD) Non-Af 90 BUN/Creatinine Ratio 18.4 Glucose 148 H Calcium 7.9 L Total Bilirubin 0.40 AST 18 ALT 28 Alkaline Phosphatase 65 Total Protein 7.8 Albumin 3.3 Globulin 4.5 H Albumin/Globulin Ratio 0.7 L Prealbumin 27.9 Medical Necessity - Tobacco Use Smoking Status: Never smoker Assessment/Plan All Active Problems (Last Updated 03/14/18 @ 15:17 by Marga Michel) Open wound anterior abdominal wall (Acute) Open wound of scalp, complicated (Acute) Infected surgical wound (Acute) Open wound of breast (Acute) 1. Hidradenitis lower anterior abdominal wall skin crease. 2. Hidradenitis bilateral inguinal areas extending onto pubic area. 3. Abdominal panniculus with panniculitis. 4. Abdominal wall skin crease intertrigo. 5. Obesity. 6. Family history of skin cancer. 7. s/p surgical preparation lower anterior abdominal wall and pubic area with excision skin and subcutaneous tissue for necrotizing soft tissue hidradenitis infection (798 cm2). 8. Open surgical hidradenitis wound lower anterior abdominal wall and pubic area. VAC applied today. It was painful. He still needed IV analgesia. Will wean to po analgesia in anticipation of discharge tomorrow. Operative cultures are pending. Continue Vancomycin. Plan on po antibiotics at discharge. Prealbumin was 27.9. Encourage nutritional supplementation with protein to help the healing process. After discharge, [facility] 2[facility]4 weeks since he is travelling from out of town. Encourage ambulation. Code Visit Inpatient E&M: 25018 Subs Hosp L1 - ICD-10 - L73.2, S31.109A, E65, M79.3, L30.4, M79.89, Z80.8, E66.01
[2018-04-18] MEDS: 0.9% NaCl Peripheral Flush Adult/Peds IV ×3 (02:53→10:00)
[2018-04-18] MEDS: HYDROmorphone 1 MG/ML Syringe IV ×3 (02:53→10:00)
[2018-04-18 04:17] VITALS: BP 128/70; PULSE 90; RESP 18; TEMP 36.9; O2SAT 95
[2018-04-18] MEDS: Enoxaparin 40 MG/0.4 ML Syringe SC (06:43)
[2018-04-18 07:10] LABS: Vancomycin, Trough Level < 0.8 ug/mL (5.0-15.0)
[2018-04-18] MEDS: Docusate Sodium 100 MG Capsule PO (07:46)
[2018-04-18 08:08] VITALS: O2SAT 92
[2018-04-18 09:44] VITALS: BP 126/67; PULSE 87; RESP 18; TEMP 37.3; O2SAT 97
[2018-04-18 09:47] VITALS: PULSE 100
[2018-04-18] MEDS: oxyCODONE 5 MG Tablet 10 MG PO (11:50)
--- NOTE | 2018-04-18 13:24 | PCM.PN.SRG ---
Subjective: Postop #2 Patient is resting comfortably. He is tolerating po analgesia. - Physical Exam General: Alert, Oriented x3 HEENT: PERRLA, EOMI Oral: Moist Mucosa Neck: Supple Abdomen: Soft, Non-Distended Skin: Ulcer/ Wound - abdominal wall and pubic wound is stable. VAC in place. Minimal drainage in the canister. Neurological: Cranial nerves II-XII grossly intact Psych/Mental Status: Normal Affect, Appropriate Vital Signs Temp Pulse Resp BP Pulse Ox 99.1 F 100 18 126/67 H 97 04/18/18 09:44 04/18/18 09:47 04/18/18 09:44 04/18/18 09:44 04/18/18 09:44 Oxygen Flow Rate (L/min) 2 Oxygen Delivery Method Room Air Weight: 430 lb 5.477 oz Body Mass Index (BMI) 55.2 Intake and Output for Last 24 Hours 04/16/18 04/17/18 04/18/18 23:59 23:59 23:59 Intake Total 1827 / 1827 4638 / 4638 2281 / 2281 Output Total 550 / 550 700 / 700 Balance 1827 / 1827 4088 / 4088 1581 / 1581 Microbiology Past 72 Hours 04/16/18 14:43 Gram Stain - Final Tissue - Abdominal Wound Culture - Preliminary No growth-Final to follow Anaerobic Culture - Preliminary Checking for anaerobes, further studies to follow. Laboratory Tests Past 24 Hrs 04/18/18 06:10 Vancomycin Trough < 0.8 L Medical Necessity - Tobacco Use Smoking Status: Never smoker Assessment/Plan All Active Problems (Last Updated 03/14/18 @ 15:17 by Marga Michel) Open wound anterior abdominal wall (Acute) Open wound of scalp, complicated (Acute) Infected surgical wound (Acute) Open wound of breast (Acute) 1. Hidradenitis lower anterior abdominal wall skin crease. 2. Hidradenitis bilateral inguinal areas extending onto pubic area. 3. Abdominal panniculus with panniculitis. 4. Abdominal wall skin crease intertrigo. 5. Obesity. 6. Family history of skin cancer. 7. s/p surgical preparation lower anterior abdominal wall and pubic area with excision skin and subcutaneous tissue for necrotizing soft tissue hidradenitis infection (798 cm2). 8. Open surgical hidradenitis wound lower anterior abdominal wall and pubic area. VAC in place. To be changed three times per week at 150 mmHg continuous suction. He is tolerating po analgesia. Discharge home today. Operative cultures are pending. Will stop the Vancomycin and discharge on Doxycycline. Prealbumin was 27.9. Encourage nutritional supplementation with protein to help the healing process. [facility] in 2-4 weeks since he is travelling from out of town. Wrote script for Doxycycline. Wrote scripts for Dilaudid, 4mg (60 tabs) and for Valium for spasm (30 tabs). Wrote script for Colace for constipation (60 tabs). Code Visit Inpatient E&M: [id number] Disch Hosp - ICD-10 - L73.2, S31.109A, E65, M79.3, L30.4, M79.89, Z80.8, E66.01
--- NOTE | 2018-04-18 13:28 | PCM.DC ---
You will use the following diet at home:: No restrictions, Other - encourage nutritional supplementation with protein to help the healing process. Discharge Activity: May Shower - on the days the vac is changed. May shower in (days): 2 - on the days the vac is changed. May resume sexual activity in: No Restrictions Weight Bearing Status: Weight bearing as tolerated Call your doctor if your incision/area has: Continuous Slow Oozing, Sudden Increased Bleeding, Increased Pain/ Swelling, Increased Redness, Foul Smelling Discharge, Swelling at the incision site Call your doctor if you observe: Fever of 101 or Higher, Coldness, Increased Pain, Shortness of breath, Chest pain, Calf discomfort, Uncontrolled pain Suture Line Care: - - vac changes three times per week at 150 mmHg continuous suction. Change Dressing in (Days):: 2 - vac changes three times per week. Cleanse incision/area with: Soap & Water - may cleanse the wound with soap and water at the time of the vac change., - - may shower on the days the vac is changed. Allergies/Adverse Reactions: Allergies morphine Allergy (Verified 04/15/18 15:28) Rash Sulfa (Sulfonamide Antibiotics) Allergy (Verified 04/15/18 15:28) Other GOT FEVER Medications to take at Discharge Trazodone HCl 50 mg PO QHS 07/20/14 Fluoxetine [Prozac] 20 mg PO QHS 09/28/15 Diazepam [Valium] 5 mg PO 4X/DAY PRN PRN #30 tab 04/18/18 Docusate Sodium [Colace] 100 mg PO BID #60 cap 04/18/18 Doxycycline [Vibramycin] 100 mg PO BID #21 cap 04/18/18 Hydromorphone HCl [Dilaudid] 4 - 8 mg PO 4X/DAY PRN PRN 7 Days #60 tab 04/18/18 The following prescriptions were given: Diazepam [Valium] 5 mg PO 4X/DAY PRN PRN #30 tab PRN Reason: Spasms Hydromorphone HCl [Dilaudid] 4 - 8 mg PO 4X/DAY PRN PRN 7 Days #60 tab PRN Reason: Pain Docusate Sodium [Colace] 100 mg PO BID #60 cap Doxycycline [Vibramycin] 100 mg PO BID #21 cap Primary Care Physician: Care Physician,No Primary [Primary Care Provider] - Test Results: Test results from this visit will be discussed in further detail at your follow-up appointment, if applicable. Please Follow Up With: Cosme Weinstein MD When: may 13, 2018 at [facility] [phone] for appt time. Proposed Discharge Date: 04/18/18
--- NOTE | 2018-04-18 13:32 | DCINST_ITS ---
You will use the following diet at home:: No restrictions, Other - encourage nutritional supplementation with protein to help the healing process. Discharge Activity: May Shower - on the days the vac is changed. May shower in (days): 2 - on the days the vac is changed. May resume sexual activity in: No Restrictions Weight Bearing Status: Weight bearing as tolerated Call your doctor if your incision/area has: Continuous Slow Oozing, Sudden Increased Bleeding, Increased Pain/ Swelling, Increased Redness, Foul Smelling Discharge, Swelling at the incision site Call your doctor if you observe: Fever of 101 or Higher, Coldness, Increased Pain, Shortness of breath, Chest pain, Calf discomfort, Uncontrolled pain Suture Line Care: - - vac changes three times per week at 150 mmHg continuous suction. Change Dressing in (Days):: 2 - vac changes three times per week. Cleanse incision/area with: Soap & Water - may cleanse the wound with soap and water at the time of the vac change., - - may shower on the days the vac is changed. Allergies/Adverse Reactions: Allergies morphine Allergy (Verified 04/15/18 15:28) Rash Sulfa (Sulfonamide Antibiotics) Allergy (Verified 04/15/18 15:28) Other GOT FEVER Medications to take at Discharge Trazodone HCl 50 mg PO QHS 07/20/14 Fluoxetine [Prozac] 20 mg PO QHS 09/28/15 Diazepam [Valium] 5 mg PO 4X/DAY PRN PRN #30 tab 04/18/18 Docusate Sodium [Colace] 100 mg PO BID #60 cap 04/18/18 Doxycycline [Vibramycin] 100 mg PO BID #21 cap 04/18/18 Hydromorphone HCl [Dilaudid] 4 - 8 mg PO 4X/DAY PRN PRN 7 Days #60 tab 04/18/18 The following prescriptions were given: Diazepam [Valium] 5 mg PO 4X/DAY PRN PRN #30 tab PRN Reason: Spasms Hydromorphone HCl [Dilaudid] 4 - 8 mg PO 4X/DAY PRN PRN 7 Days #60 tab PRN Reason: Pain Docusate Sodium [Colace] 100 mg PO BID #60 cap Doxycycline [Vibramycin] 100 mg PO BID #21 cap Primary Care Physician: Care Physician,No Primary [Primary Care Provider] - Test Results: Test results from this visit will be discussed in further detail at your follow- up appointment, if applicable. Please Follow Up With: Cosme Weinstein MD When: may 13, 2018 at [facility] [phone] for appt time. Proposed Discharge Date: 04/18/18
[2018-04-18] MEDS: diazePAM 5 MG Tablet PO (13:57)
--- NOTE | 2018-04-18 14:13 | NURSING ---
Pt switched over to the home VAC. pt and mother deny questions. pt has had the home VAC numerous times in the past.
== END 2018-04-18 14:30 | disposition home health service (06) | DRG 571 ==
LOC: ACINP 08:48 → MS3 04-17 06:15
PROVIDERS: Admitting Provider Surgery; Referring Provider Surgery; Visit Provider Surgery
PROC: 0JB80ZZ Excision of Abdomen Subcutaneous Tissue and Fascia, Open Approach (ICD-10-PCS; principal; 2018-04-16 10:40)
DX: L73.2 Hidradenitis suppurativa (principal); Z68.43 Body mass index [BMI] 50.0-59.9, adult; L30.4 Erythema intertrigo; Z80.8 Family history of malignant neoplasm of other organs or systems; E66.9 Obesity, unspecified; M79.3 Panniculitis, unspecified; Z23 Encounter for immunization
CPT/HCPCS: 36415; 80048; 80053; 80202; 83036; 84134; 85027; 87070; 87075; 87102; 87205; 87206; 87640; 88304; 97802; J7040; J7120; 90686; A4216; J2405; J3475; J3490

== ENCOUNTER 2018-05-27 09:35 | Outpatient (RCR) | payer MEDICARE, MEDICAID, SELFPAY ==
[2018-05-06 10:58] VITALS: BMI 55.2
[2018-05-27 11:16] VITALS: BP 155/94; PULSE 103; RESP 20; TEMP 37.2; BMI 53.8
--- NOTE | 2018-05-27 17:34 | PCM.WC.PN ---
Type of Wound Date of Service: 05/27/18 Chief Complaint: Open surgical hidradenitis wound lower anterior abdominal wall. History of Wound: Surgery 04/16/18 - Surgical preparation lower anterior abdominal wall and pubic area with excision skin and subcutaneous tissue for necrotizing soft tissue hidradenitis infection (798 cm2). Wound care - VAC. Operative culture - negative. He was treated perioperatively with Doxycycline. His local physician changed the Doxycycline to Cefadroxil because he had trouble tolerating the Doxycycline. Pathology - focal chronic inflammation and no carcinoma seen. His Prealbumin on 04/17/18 was 27.9. Encourage nutritional supplementation with protein to help the healing process. He denies fever. His appetite is good. Progress of Wound: Improved. - Physical Exam Vital Signs Temp Pulse Resp BP 98.9 F 103 H 20 H 155/94 H 05/27/18 11:16 05/27/18 11:16 05/27/18 11:16 05/27/18 11:16 Skin: - - on the right upper neck by the earlobe is a cystic lesion that has some surrounding redness. Measures 1.3 cm. No fluctuance. No purulent drainage. Mild tenderness. Wound Measurements and Assessment WC - Nurse 1 - General Ulcer Measurement Start: 05/27/18 11:07 Freq: Status: Active Protocol: Activity Type Activity Date Activity User E-Sign Co-Sign Detail Recorded Client Recorded Date Recorded By Document 05/27/18 11:16 MW [id number] 05/27/18 11:40 MW 05/27/18 11:16 Wound Center Nurse 1 [Ulcer Assessment] #3 LOWER ABDOMEN -Combined with other wound No -Current Size (cm) - Length 5.0 -Current Size (cm) - Width 56.5 -Current Size (cm) - Depth 3.4 -Total Square Cm 282.50 -Date of Last Picture (Recall this 05/27/18 field) -Photo Taken Yes -Epithelialization None Present -Tunneling No -Undermining/Tunneling No -Circular Undermining No -Exudate Amt Large -Exudate Type Serosanguineous -Wound Margin Distinct, Outline Attached -Granulation Amt Medium (34-66%) -Granulation Quality Red -Slough/Fibrin Yes -Necrosis Amt Medium (34-66%) -Necrotic Tissue Type Adherent Slough -Structure Exposed N/A -Texture (Pauline-wound Skin Appearance) Assessed Scarring -Moisture (Pauline-wound Skin Appearance No Abnormality ) Assessed -Color (Pauline-wound Skin Appearance) No Abnormality Assessed -Temperature (Pauline-wound Skin No Abnormality Appearance) (Pt Warm) -Tenderness on Palpation (Pauline-wound No Skin Appearance) -Ulcer Cleansing SOAP AND WATER -Foul Odor after Cleansing No -Anesthetic Used 4% Lidocaine Solution 5% Lidocaine Gel [Edema Assessment] -Lower Limb Edema Present No WC - Nurse 2 - General Ulcer CM Notes Start: 05/27/18 11:07 Freq: Status: Active Protocol: Activity Type Activity Date Activity User E-Sign Co-Sign Detail Recorded Client Recorded Date Recorded By Document 05/27/18 12:09 [id number] 05/27/18 12:10 05/27/18 12:09 Wound Center Nurse 2 [Procedure/Treatment] #3 LOWER ABDOMEN -Time 12:09 -Correct Patient Yes -Correct Side, Site, Position Yes -Correct Procedure Yes -Procedure Performed Yes -Type of Procedure Debridement -Clinical Debridement Subcutaneous -Post Debridement Size (cm) - Length 5.0 -Post Debridement Size (cm) - Width 56.6 -Post Debridement Size (cm) - Depth 3.5 -Total Square Cm 283.00 -Wound/Ulcer Outcome Not Healed -Ulcer Cleansing Rinsed/ Irrigated with Saline -Foul Odor after Cleansing No -Bioengineered Tissue No -Bleeding Controlled with Pressure -Offloading No -Treatment Response Procedure Tolerated Well [See Physician Procedure note for Specifics] Pain Scale: 0-10 Numeric [Pain] -Is Patient Pain Free? Yes Debridement Note Post-Debridement Measurements/Treatment - Nurse 2 - General Ulcer CM Notes Start: 05/27/18 11:07 Freq: Status: Active Protocol: Activity Type Activity Date Activity User E-Sign Co-Sign Detail Recorded Client Recorded Date Recorded By Document 05/27/18 12:09 [id number] 05/27/18 12:10 05/27/18 12:09 Wound Center Nurse 2 #3 LOWER ABDOMEN -Time 12:09 -Correct Patient Yes -Correct Side, Site, Position Yes -Correct Procedure Yes -Procedure Performed Yes -Type of Procedure Debridement -Clinical Debridement Subcutaneous -Post Debridement Size (cm) - Length 5.0 -Post Debridement Size (cm) - Width 56.6 -Post Debridement Size (cm) - Depth 3.5 -Total Square Cm 283.00 -Wound/Ulcer Outcome Not Healed -Ulcer Cleansing Rinsed/ Irrigated with Saline -Foul Odor after Cleansing No -Bioengineered Tissue No -Bleeding Controlled with Pressure -Offloading No -Treatment Response Procedure Tolerated Well Pain Scale: 0-10 Numeric Is Patient Pain Free? Yes Wound debrided: #3 Lower anterior abdominal wall. Laterality: Not Applicable Wound Grade/Stage: 2. Type of Debridement: Excisional debridement Anesthesia Used: 4% Lidocaine Solution Depth: Down to and including healthy tissue, in the subcutaneous layer Percentage of wound debrided: 100 Instrument Used: 5mm curette Tissue Removed: subcutaneous tissue. Severity: Fat Layer Exposed Amount of bleeding with debridement: Mild Bleeding Controlled with: Pressure Patient tolerated procedure well Assessment/Plan Assessment: 1. Hidradenitis lower anterior abdominal wall skin crease. 2. Open surgical hidradenitis wound lower anterior abdominal wall. 3. Hidradenitis bilateral inguinal areas extending onto pubic area. 4. Abdominal panniculus with panniculitis. 5. Abdominal wall skin crease intertrigo. 6. History of MRSA. 7. Obesity. 8. Family history of skin cancer. 9. Infected cystic lesion right upper neck by the earlobe. Plan: VAC was removed today. Wound shows good granulation tissue. No further evidence of infection. Does have some periwound irritation from the draping and from the VAC sponge. There is some residual odor as well. Will stop the VAC and start Dakin's dressing changes to help with the odor. Patient states the pain can be unbearable at times. He has been having problems with the wound care. He has enough pain medication at this time. The wound is more superficial, and can proceed with delayed closure with skin grafting. That may be safer than trying a complex secondary wound closure with his propensity for infection. He wants to pursue the skin graft surgery. He wants to wait until after 06/18 for the surgery since that is his birthday. Will discuss at his next visit. His Prealbumin on 04/17/18 was 27.9. Encourage nutritional supplementation with protein to help the healing process. His HgbA1c on 04/16/18 was 5.8. So he would be able to proceed with the skin grafting. Wrote a script for Cleocin for 14 days until his next visit for a new onset cyst with surrounding redness in his right upper neck by the earlobe. Discussed with him that if it worsens, it may need operative intervention with incision and drainage. Proceed with warm compresses prn to promote drainage. Followup 2 weeks. The patient was informed of the risks and complications of the procedure including alternatives to surgery. These were discussed with the patient personally. The patient voices understanding and wishes to proceed. Surgery will be done under general anesthesia with an overnight stay at the hospital.
== END 2018-06-06 23:59 ==
LOC: WC 09:35
PROVIDERS: Visit Provider Surgery
DX: L73.2 Hidradenitis suppurativa (principal); M79.3 Panniculitis, unspecified; Z86.14 Personal history of Methicillin resistant Staphylococcus aureus infection; E66.9 Obesity, unspecified; Z71.3 Dietary counseling and surveillance; L98.492 Non-pressure chronic ulcer of skin of other sites with fat layer exposed; L30.4 Erythema intertrigo
CPT/HCPCS: 11042; 11045; 99213; G0463

== ENCOUNTER 2018-06-20 15:57 | Inpatient (IN) | payer MEDICARE, MEDICAID, SELFPAY ==
[2018-06-10 09:52] VITALS: BMI 53.8
--- NOTE | 2018-06-19 23:20 | HP.PCM_ITS ---
History and Physical Date of Admission: 06/20/18 HISTORY OF PRESENT ILLNESS Comes in today for further evaluation of his nonhealing hidradenitis ulcer lower anterior abdominal wall that occurred after his recent surgery on 04/16/18 where he underwent surgical preparation lower anterior abdominal wall and pubic area with excision skin and subcutaneous tissue for necrotizing soft tissue hidradenitis infection (798 cm2). Postop he started with the VAC and stopped it secondary to pain. Wound care was changes to Dakin's dressing changes daily with improvement. His operative culture was negative. He was discharged on Doxycycline that was changed to Cefadroxil. His Prealbumin on 04/17/18 was 27.9. Encourage nutritional supplementation with protein to help the healing process. He denies fever. His appetite is good. He denies any trauma. He presents today for further operative debridement with skin grafting. PAST MEDICAL HISTORY Anemia Asthma Back pain Bone fracture Depression Gastrointestinal problem Hidradenitis Seasonal allergies Hypertension PAST SURGICAL HISTORY Hidradenitis surgery, multiple Surgical preparation lower anterior abdominal wall and pubic area with excision skin and subcutaneous tissue for necrotizing soft tissue hidradenitis infection (798 cm2) - 04/16/18 colonoscopy fracture of right ankle ALLERGIES Cephalosporins morphine Penicillins Sulfa (Sulfonamide Antibiotics) MEDICATIONS Trazodone HCl Fluoxetine [Prozac] Topiramate [Topamax] Diazepam [Valium] Ferrous Sulfate Hydromorphone HCl [Dilaudid] FAMILY HISTORY Mother - Hypertension, Kidney disease, Diabetes, Cancer of kidney Father - Hypertension Uncle - Colon cancer SOCIAL HISTORY Smoking Status: Never smoker alcohol intake: never substance use type: does not use REVIEW OF SYSTEMS General - Denies fever and weight loss. Has fatigue. Eyes - Denies cataracts and glaucoma. ENT - Denies nasal congestion and sore throat. Endocrine - Denies excessive thirst and urination. Has cold intolerance and heat intolerance. Skin - Denies skin cancer. Has extensive hidradenitis involving scalp, bilateral medial arms and axillary and chest wall areas, bilateral breasts, bilateral inguinal areas extending onto pubic area, lower anterior abdominal wall skin crease, and bilateral perianal area. Has family history of skin cancer. Has nonhealing hidradenitis ulcer lower anterior abdominal wall after recent surgical excision hidradenitis on 04/16/18. Musculoskeletal - Denies joint pain, joint stiffness, weakness of muscles and joints, and arthritis. Has back pain. Neuro - Denies headaches. Cardiovascular - Denies chest pain and shortness of breath with exertion. Has fatigue. Psych - Denies anxiety. Has depression. Respiratory - Denies chronic cough and shortness of breath. Has asthma. Gastrointestinal - Denies nausea, vomiting, diarrhea. Has constipation. Hematologic - Denies abnormal bruising and bleeding. Has anemia. Genitourinary - Denies hematuria and urinary frequency. PHYSICAL EXAMINATION General - Alert and Oriented HEENT - PERRL. EOMI. Throat is clear. No suspicious lesions noted. had extensive area of hidradenitis involving the occipital scalp extending onto parietal and temporal scalp areas that has been excised and skin grafted. Neck - Supple and nontender. No cervical adenopathy. No suspicious lesions noted. Chest Wall - Has stable hidradenitis involving the lateral chest wall extending into the axillary areas. Induration present. Nontender. No acute abscess seen. Measures 20 x 20 cm for each side. Breasts - has healed incisions from previous bilateral mastectomies for his extensive breast hidradenitis. Lungs - Clear to auscultation. Heart - Regular rate and rhythm. Abdomen - Soft and nondistended. Has nonhealing hidradenitis ulcer lower anterior abdominal wall. Tender to palpation. Granulation tissue present. Measures 51 x 3 x 0.2 cm. Had large abdominal panniculus with associated panniculitis. No inguinal adenopathy. Has stable hidradenitis scarring in bilateral inguinal areas. Induration present. Nontender. No acute abscess seen. Rectal - Has stable hidradenitis in his perianal area. Measures 20 cm b ilaterally. No acute abscess seen. Induration present. Nontender. Extremities - FROM. No axillary adenopathy. Radial pulses are palpable. In his medial arms bilaterally are areas of stable hidradenitis measuring 18 x 14 cm for each area. Extends into the axilla. Induration present. Nontender. No acute abscess seen. Neuro - CN II-XII grossly intact. Psych - Normal mood and affect. ASSESSMENT 1. Nonhealing hidradenitis ulcer lower anterior abdominal wall. 2. Hidradenitis lower anterior abdominal wall skin crease. 3. Hidradenitis bilateral inguinal areas extending onto pubic area. 4. Abdominal panniculus with panniculitis. 5. Abdominal wall skin crease intertrigo. 6. History of MRSA. 7. Obesity. 8. Family history of skin cancer. PLAN The nonhealing hidradenitis ulcer lower anterior abdominal wall has improved but he has had increased pain during the postop period. The pain improved with the Dakin's dressing changes, but the pain persisted. The dimensions of the ulcer has showed decreased healing and because there is a plateau in the healing process, it was recommended to proceed with delayed secondary wound closure with skin grafting. Will treat him perioperatively with Vancomycin because of his history of MRSA. Operative cultures will be obtained. A positive culture may necessitate antibiotic modification. Anticipate increased metabolic demands after the surgery. Will check a Prealbumin. Will need nutritional supplementation with protein to help the healing process. The patient was informed of the risks and complications of the procedure including alternatives to surgery. These were discussed with the patient personally. The patient voices understanding and wishes to proceed. Surgery will be done under general anesthesia with an overnight stay at the hospital.
[2018-06-20] VITALS (25 sets, daily range): BP systolic 101–145; BP diastolic 57–90; PULSE 53–91; RESP 12–18; TEMP 36.3–36.7; O2SAT 88–100; BMI 54.5
[2018-06-20] MEDS: Vancomycin IV 1,000 MG/200 ML BAG 200 MG IV (06:57)
--- NOTE | 2018-06-20 08:00 | HID_PTH ---
PATIENT: SHEILA NIELSON LOC: [facility] U#:[id number] AGE/SX: 33/M ROOM: [facility] RE06/20/[address]: Dr. Mary Carmen Pagan DO : 1985 BED: 1 DIS: 06/21/2018 SPEC #: [id number] RECD: 06/20/18 13:07 STATUS: JESSICA MEJIA #: [id number] ELIECER: 06/20/18 08:[address]: Cosme Weinstein DEPT: SURGICAL PATHOLOGY RECD BY: Ben May ENTERED: 06/20/18 13:26 SP TYPE: Joradenit KRISHNA DR: Esther [facility] Phys Tissues: Abdominal wall, NOS Procedures: Surgery Specimen Level III HEADER OPERATION: Abdominal wall excision debridement, hidradenitis ulcer with skin PRE-OP DIAGNOSIS: Nonhealing hidradenitis ulcer lower anterior abdominal wall; hidradenitis lower anterior abdominal wall skin crease, hidradenitis bilateral inguinal areas extending onto pubic area; abdominal wall skin crease intertrigo, abdominal panniculus with panniculitis TISSUE SUBMITTED: Hidradenitis abdominal wall MICROSCOPIC DIAGNOSIS Hidradenitis abdominal wall: Pieces of skin and underlying tissue with extensive ulceration, associated acute and chronic inflammation and granulation tissue reaction. MANUELA:ubaldo 06/21/18 MICROSCOPIC DESCRIPTION Slides are reviewed. GROSS DESCRIPTION Received in fixative is one container labeled with the patient's name and designated hidradenitis abdominal wall. The specimen consists of multiple irregular fragments of red-copeland soft tissue that in aggregate measure 3.5 x 3.2 x 0.2 cm. The specimen is totally submitted in three cassettes. / AM:ubaldo 06/20/18 TC:2 CPT: 75798
[2018-06-20] MEDS: Mupirocin Ointment 22gm Tube 1 APPLIC (11:30)
--- NOTE | 2018-06-20 11:58 | PCM.OPRPT ---
Report of Operation Date of Procedure: 06/20/18 Pre-Operative Diagnosis: 1. Nonhealing hidradenitis ulcer lower anterior abdominal wall. 2. Hidradenitis lower anterior abdominal wall skin crease. 3. Hidradenitis bilateral inguinal areas extending onto pubic area. 4. Abdominal panniculus with panniculitis. 5. Abdominal wall skin crease intertrigo. 6. History of MRSA. 7. Obesity. 8. Family history of skin cancer. Post-Operative Diagnosis: Same. Surgery/Procedure Performed:: Surgical preparation lower anterior abdominal wall with excisional debridement nonhealing hidradenitis ulcer with STSG reconstruction from the right flank (153 cm2). Description of Surgical Findings:: Comes in today for further evaluation of his nonhealing hidradenitis ulcer lower anterior abdominal wall that occurred after his recent surgery on 04/16/18 where he underwent surgical preparation lower anterior abdominal wall and pubic area with excision skin and subcutaneous tissue for necrotizing soft tissue hidradenitis infection (798 cm2). Postop he started with the VAC and stopped it secondary to pain. Wound care was changes to Dakin's dressing changes daily with improvement. His operative culture was negative. He was discharged on Doxycycline that was changed to Cefadroxil. His Prealbumin on 04/17/18 was 27.9. Encourage nutritional supplementation with protein to help the healing process. He denies fever. His appetite is good. He denies any trauma. He presents today for further operative debridement with skin grafting. Patient was informed of the risks and complications of the procedure including alternatives to surgery. These were discussed with the patient personally. Patient voices understanding and wishes to proceed. Size of skin graft lower anterior abdominal wall - 51 x 3 cm. IV Fluids - 2000 ml. I used Issa absorbable hemostat. Reference Number - [id number]. Lot Number - [id number]. Expiration - December 04, 2022. green belt: Keern Cobian. Type of Anesthesia:: General Specimen's removed: Nonhealing hidradenitis ulcer lower anterior abdominal wall to Pathology and Microbiology. Drains: Reed. Estimated Blood Loss (mL): 150 ml. Fluids Replaced: IV Fluids 2000 ml. Description of Procedure: Patient was taken to OR in supine position and was placed under general anesthesia. A bump was placed underneath the right hip to gain better access to the right flank for the donor skin. The abdominal wall was prepped and draped in the usual fashion. SCD's were placed for DVT prophylaxis. Perioperative antibiotics were given intravenously. Using xylocaine with epinephrine, the right flank area was infiltrated. After waiting 5 minutes for the anesthetic to take effect, I excised an ellipse of skin into the subcutaneous tissue. The subcutaneous tissue was removed from the undersurface of the dermis including some of the deeper dermis thus fashioning a thick split thickness skin graft. The skin graft was placed in saline. Some of the underlying subcutaneous tissue was excised to aid in wound closure. Hemostasis was obtained with electrocautery. The wound was irrigated with saline. A size 15 Reed drain was placed through a separate stab incision inferolaterally and secured to the skin with 3-0 Nylon suture. I sprayed Issa absorbable hemostat into the wound to minimize seroma formation. The donor incision was then closed in a multiple layered fashion with 2-0 Vicryl figure of eight interrupted sutures for the Gilmer's fascial layer. The deep dermis and subcutaneous tissue was approximated with 2-0 Vicryl interrupted sutures. The skin was approximated with 3-0 Monocryl running subcuticular suture and 3-0 Prolene vertical mattress sutures. I then excised the nonhealing hidradenitis ulcer lower anterior abdominal wall with a scalpel and a large curette. Good bleeding was noted. Some of the tissue was sent to Pathology for analysis to rule out carcinoma and to Microbiology for culture. A positive culture will necessitate antibiotic therapy. Hemostasis was obtained with electrocautery. The wound was irrigated with saline. The size of the ulcer for the skin graft measures 51 x 3 cm or 153 cm2. The skin graft was placed on stretch and it was meshed with a size 15 scalpel. The thick split thickness skin graft was then placed on the lower anterior abdominal wall and secured to the skin edge with 3-0 Monocryl simple interrupted sutures. 3-0 Monocryl suture and 2-0 Vicryl suture were also used for central quilting stabilization. Antibiotic ointment was applied to the skin graft followed by Xeroform gauze and 4x4 gauze soaked in saline and secured to the skin with 3-0 Nylon as a tie over stent suture dressing. Antibiotic ointment was also applied to the donor incision right flank followed by Kerlix gauze. Dry Kerlix gauze was also applied over the skin graft dressing followed by ABD pads. Patient tolerated the procedure well and was sent to PACU in satisfactory condition. Patient will be sent upstairs for continued postop care. He will be discharged home tomorrow on antibiotics and pain medication. Grafts/Implants Used: None. - Complications None. - Admit VTE Documentation VTE Present on Admission: No VTE Mechan Device Prophylaxis: SCD's VTE Pharm Prophylaxis ordered?: Yes Code Visit Surgery Charges CPT - 24892 ICD-10 - L98.492, L73.2, E65, M79.3, L30.4, Z86.14, E66.01, Z80.8 75939 L98.492, L73.2, E65, M79.3, L30.4, Z86.14, E66.01, Z80.8 [id number] L98.492, L73.2, E65, M79.3, L30.4, Z86.14, E66.01, Z80.8 53465 L98.492, L73.2, E65, M79.3, L30.4, Z86.14, E66.01, Z80.8
--- NOTE | 2018-06-20 12:08 | OP.PCM_ITS ---
Report of Operation Date of Procedure: 06/20/18 Pre-Operative Diagnosis: 1. Nonhealing hidradenitis ulcer lower anterior abdominal wall. 2. Hidradenitis lower anterior abdominal wall skin crease. 3. Hidradenitis bilateral inguinal areas extending onto pubic area. 4. Abdominal panniculus with panniculitis. 5. Abdominal wall skin crease intertrigo. 6. History of MRSA. 7. Obesity. 8. Family history of skin cancer. Post-Operative Diagnosis: Same. Surgery/Procedure Performed:: Surgical preparation lower anterior abdominal wall with excisional debridement nonhealing hidradenitis ulcer with STSG reconstruction from the right flank (153 cm2). Description of Surgical Findings:: Comes in today for further evaluation of his nonhealing hidradenitis ulcer lower anterior abdominal wall that occurred after his recent surgery on 04/16/18 where he underwent surgical preparation lower anterior abdominal wall and pubic area with excision skin and subcutaneous tissue for necrotizing soft tissue hidradenitis infection (798 cm2). Postop he started with the VAC and stopped it secondary to pain. Wound care was changes to Dakin's dressing changes daily with improvement. His operative culture was negative. He was discharged on Doxycycline that was changed to Cefadroxil. His Prealbumin on 04/17/18 was 27.9. Encourage nutritional supplementation with protein to help the healing process. He denies fever. His appetite is good. He denies any trauma. He presents today for further operative debridement with skin grafting. Patient was informed of the risks and complications of the procedure including alternatives to surgery. These were discussed with the patient personally. Patient voices understanding and wishes to proceed. Size of skin graft lower anterior abdominal wall - 51 x 3 cm. IV Fluids - 2000 ml. I used Issa absorbable hemostat. Reference Number - [id number]. Lot Number - [id number]. Expiration - December 04, 2022. vortex operator: Keren Cobian. Type of Anesthesia:: General Specimen's removed: Nonhealing hidradenitis ulcer lower anterior abdominal wall to Pathology and Microbiology. Drains: Reed. Estimated Blood Loss (mL): 150 ml. Fluids Replaced: IV Fluids 2000 ml. Description of Procedure: Patient was taken to OR in supine position and was placed under general anesthesia. A bump was placed underneath the right hip to gain better access to the right flank for the donor skin. The abdominal wall was prepped and draped in the usual fashion. SCD's were placed for DVT prophylaxis. Perioperative antibiotics were given intravenously. Using xylocaine with epinephrine, the right flank area was infiltrated. After waiting 5 minutes for the anesthetic to take effect, I excised an ellipse of skin into the subcutaneous tissue. The subcutaneous tissue was removed from the undersurface of the dermis including some of the deeper dermis thus fashioning a thick split thickness skin graft. The skin graft was placed in saline. Some of the underlying subcutaneous tissue was excised to aid in wound closure. Hemostasis was obtained with electrocautery. The wound was irrigated with saline. A size 15 Reed drain was placed through a separate stab incision inferolaterally and secured to the skin with 3-0 Nylon suture. I sprayed Issa absorbable hemostat into the wound to minimize seroma formation. The donor incision was then closed in a multiple layered fashion with 2-0 Vicryl figure of eight interrupted sutures for the Gilmer's fascial layer. The deep dermis and subcutaneous tissue was approximated with 2-0 Vicryl interrupted sutures. The skin was approximated with 3-0 Monocryl running subcuticular suture and 3-0 Prolene vertical mattress sutures. I then excised the nonhealing hidradenitis ulcer lower anterior abdominal wall with a scalpel and a large curette. Good bleeding was noted. Some of the tissue was sent to Pathology for analysis to rule out carcinoma and to Microbiology for culture. A positive culture will necessitate antibiotic therapy. Hemostasis was obtained with electrocautery. The wound was irrigated with saline. The size of the ulcer for the skin graft measures 51 x 3 cm or 153 cm2. The skin graft was placed on stretch and it was meshed with a size 15 scalpel. The thick split thickness skin graft was then placed on the lower anterior abdominal wall and secured to the skin edge with 3-0 Monocryl simple interrupted sutures. 3-0 Monocryl suture and 2-0 Vicryl suture were also used for central quilting stabilization. Antibiotic ointment was applied to the skin graft followed by Xeroform gauze and 4x4 gauze soaked in saline and secured to the skin with 3-0 Nylon as a tie over stent suture dressing. Antibiotic ointment was also applied to the donor incision right flank followed by Kerlix gauze. Dry Kerlix gauze was also applied over the skin graft dressing followed by ABD pads. Patient tolerated the procedure well and was sent to PACU in satisfactory condition. Patient will be sent upstairs for continued postop care. He will be discharged home tomorrow on antibiotics and pain medication. Grafts/Implants Used: None. - Complications None. - Admit VTE Documentation VTE Present on Admission: No VTE Mechan Device Prophylaxis: SCD's VTE Pharm Prophylaxis ordered?: Yes Code Visit Surgery Charges CPT - 24486 ICD-10 - L98.492, L73.2, E65, M79.3, L30.4, Z86.14, E66.01, Z80.8 76932 L98.492, L73.2, E65, M79.3, L30.4, Z86.14, E66.01, Z80.8 64336 L98.492, L73.2, E65, M79.3, L30.4, Z86.14, E66.01, Z80.8 32981 L98.492, L73.2, E65, M79.3, L30.4, Z86.14, E66.01, Z80.8
--- NOTE | 2018-06-20 12:55 | PCM.RX.CS ---
Consult Pharmacy has been consulted to manage selected antiobiotic: Vancomycin Type of Consult: New start Suspected Infection: Skin/Soft tissue Prior Doses of Antibiotics Received/Current Regimen: Medications Discontinued Medications Vancomycin HCl (Vancomycin) 1,000 mg in 200 mls @ 200 mls/hr IV PREOP ONE Stop: 06/20/18 07:59 Last Admin: 06/20/18 06:57 Dose: 200 mls/hr Weight used for dosin kg Goal Trough: 10-15 mcg/mL Pharmacy Plan for Drug Dosing: Goal vancomycin trough 10-15 mcg/mL. Patient received 1000mg IV preop, recommend load with 2000mg IV, continue 1500mg IV q12h based on previous dosing for est trough 13 mcg/mL. Patient has received this exact same regimen in the past with trough results in goal range. Check prior to 4th dose. Pharmacy Service will continue to monitor and adjust dosing as required. Follow-Up Labs: Trough Vancomycin - 06/21 @ 2130
[2018-06-20] MEDS: Albuterol 2.5 MG/3 ML VIAL.NEB. INHALATION (14:12)
[2018-06-20 14:36] LABS: HIV - WCH Non-Reactive (Nonreactive)
--- NOTE | 2018-06-20 16:08 | CON.PCM_ITS ---
Problem List (1) Acute hypoxic respiratory failure Status: Acute (2) Open wound anterior abdominal wall Status: Acute Comment: open surgical hidradenitis wound lower anterior abdominal wall and pubic area (3) Necrotizing soft tissue infection Status: Chronic Comment: necrotizing soft tissue hidradenitis infection lower anterior abdominal wall and pubic area (4) Malnutrition of moderate degree Status: Chronic Comment: E44.0 (5) Morbid obesity with body mass index (BMI) of 40.0 to 44.9 in adult Status: Chronic Comment: E66.01 his BMI is 44.5 from recent weight loss from 414 to 335 lbs (6) Panniculitis Status: Chronic Comment: M79.3 abdominal panniculitis with hidradenitis (7) Abdominal panniculus, symptomatic Status: Chronic Comment: E65 abdominal panniculus with hidradenitis (8) Morbid obesity with BMI of 50.0-59.9, adult Status: Chronic Comment: E66.01 (9) Bipolar disorder Status: Chronic (10) GERD (gastroesophageal reflux disease) Status: Chronic (11) Hypertension Status: Chronic (12) Asthma Status: Chronic (13) Hidradenitis Status: Chronic Comment: L73.2 hidradenitis abdominal wall skin crease (14) Family history of skin cancer Status: Chronic Comment: Z80.8 (15) Open wound of scalp, complicated Status: Acute Comment: open hidradenitis wound right occipital/parietal scalp (16) Chronic skin ulcer Status: Chronic Qualifiers: Non-pressure ulcer stage: unspecified non-pressure ulcer stage Qualified Code(s): L98.499 - Non-pressure chronic ulcer of skin of other sites with unspecified severity Comment: nonhealing hidradenitis ulcer right occipital/parietal scalp area (17) Infected surgical wound Status: Acute Comment: infected surgical wound right lateral abdominal wall donor incision with seroma (18) Gynecomastia, male Status: Chronic Comment: N62 bilateral gynecomastia (19) Intertrigo Status: Chronic Comment: L30.4 abdominal wall skin crease intertrigo (20) Open wound of breast Status: Acute Qualifiers: Encounter type: initial encounter Laterality: unspecified laterality Qualified Code(s): S21.009A - Unspecified open wound of unspecified breast, initial encounter Comment: open hidradenitis wounds bilateral breasts Reason for Consult Date of Consultation: 06/20/18 Reason for Consultation: Hypoxic respiratory failure History of Present Illness: The patient is a 33 year old M with history of morbid obesity, BMI 54.5 with history of sleep apnea in the past but not on oxygen currently was seen in PACU for acute hypoxic respiratory failure. Patient states he is not on oxygen during the day or nighttime or uses CPAP at night as he was cleared of sleep apnea in adult life although he had in childhood. Patient took diazepam 5 mg in evening yesterday, his home dose and was sleepy. After that patient had surgery in the morning today under general anesthesia, intubated and had Versed, propofol, hydrocodone, fentanyl, Precedex and ketamine and Dilaudid during anesthesia. Patient was extubated and was hypoxic and put on 100% nonrebreather. Patient blood pressure is 121/63, heart rate 74, respiratory rate 18. Oxygen was tapered down and currently pulse ox 97% on 40 percent Ventimask. Patient is awake but is still drowsy and often closes eyes during conversation. Patient had excisional debridement of nonhealing hidradenitis ulcer of lower anterior abdominal wall and pubic area. patient has BRONWYN drain left. Patient has nonhealing hidradenitis ulcer along with abdominal panniculus with panniculitis with history of MRSA [] Past Medical History Past Medical History (Chronic Problems): Chronic Problems (Last Updated 03/14/18 @ 15:17 by Marga Michel) Necrotizing soft tissue infection (Chronic) necrotizing soft tissue hidradenitis infection lower anterior abdominal wall and pubic area Malnutrition of moderate degree (Chronic) E44.0 Morbid obesity with body mass index (BMI) of 40.0 to 44.9 in adult (Chronic) E66.01 his BMI is 44.5 from recent weight loss from 414 to 335 lbs Panniculitis (Chronic) M79.3 abdominal panniculitis with hidradenitis Abdominal panniculus, symptomatic (Chronic) E65 abdominal panniculus with hidradenitis Morbid obesity with BMI of 50.0-59.9, adult (Chronic) E66.01 Bipolar disorder (Chronic) GERD (gastroesophageal reflux disease) (Chronic) Hypertension (Chronic) Asthma (Chronic) Hidradenitis (Chronic) L73.2 hidradenitis abdominal wall skin crease Family history of skin cancer (Chronic) Z80.8 Chronic skin ulcer (Chronic) nonhealing hidradenitis ulcer right occipital/parietal scalp area Gynecomastia, male (Chronic) N62 bilateral gynecomastia Intertrigo (Chronic) L30.4 abdominal wall skin crease intertrigo Medical History: Medical History (Last Updated 03/14/18 @ 15:17 by Marga Michel) Anemia D64.9 Asthma J45.909 Back pain M54.9 Bone fracture T14.8XXA Depression (emotion) F32.9 Gastrointestinal problem R19.8 Hidradenitis L73.2 SCALP, BILATERAL MEDIAL ARMS AND AXILLARY AND CHEST WALL AREAS, BILATERAL BREAST, BILATERAL INGUINAL AREAS EXTENDING INTO THE PUBIC AREA,THE LOWER ANTERIOR ABDOMINAL WALL SKIN CREASE AND BILATERAL PERIANAL AREA Seasonal allergies J30.2 Hypertension I10 Allergies morphine Allergy (Verified 06/13/18 11:22) Rash Sulfa (Sulfonamide Antibiotics) Allergy (Verified 06/13/18 11:22) Other GOT FEVER Home Medications: Ambulatory Orders Medication Instructions Recorded Trazodone HCl 50 mg PO QHS 07/20/14 Fluoxetine [Prozac] 20 mg PO QHS 09/28/15 Docusate Sodium [Colace] 100 mg PO BID #60 cap 04/18/18 diazepam 5 mg tablet 5 mg PO 4X/DAY PRN #30 tab 05/06/18 Surgical History: Surgical History (Last Updated 03/14/18 @ 16:36 by Marga Michel) Hidradenitis L73.2 EXCISIONAL DEBRIDEMENT NONHEALING HIDRADENITIS ULCER LEFT OCCIPITAL/PARIETAL SCALP WITH STSG RECONSTRUCTION FROM THE LEFT LATERAL ABDOMINAL WALL (108 CM2) 09/21/14 SURGICAL PREPARATION LEFT OCCIPITAL/PARIETAL SCALP WOUND WITH EXCISION HIDRADENITIS (133 CM2)07/27/14 SURGICAL PREPARATION RIGHT OCCIPITAL/PARIETAL SCALP WOUND WITH EXCISION HIDRADENITIS (240 CM2) AND CAUTERIZATION BLEEDING 2.5 CM HYPERGRANULATION TISSUE RIGHT POSTERIOR AXILLARY AREA 12/22/14 EXCISIONAL DEBRIDEMENT NONHEALING HIDRADENITIS ULCER RIGHT OCCIPITAL SCALP WITH STSG RECONSTRUCTION FROM THE RIGHT LATERAL ABDOMINAL WALL (144 CM2) 03/09/15 INCISION AND DRAINAGE AND EXCISIONAL DEBRIDEMENT INFECTED SURGICAL WOUND RIGHT LATERAL ABDOMINAL WALL DONOR INCISION 03/16/15 EXCISION EXTENSIVE HIDRADENITIS BILATERAL BREASTS WITH BILATERAL MASTECTOMY 10/12/15 EXCISION EXTENSIVE HIDRADENITIS INVOLVING SKIN AND SUBCUTANEOUS TISSUE, LOWER ANTERIOR WALL AND PUBIC AREA WITH PANNICULECTOMY 02/15/16 History of colonoscopy Z98.890 History of fracture of right ankle Z87.81 REQUIRED PLATE AND SCREW FIXATION Surgical History: - - Surgery for right ankle fracture, wisdom teeth removal. Psychiatric History: Bipolar Smoking Status: Never smoker - *Family History Maternal Family History: Family History (Last Updated 03/14/18 @ 16:38 by Marga Michel) Mother Hypertension Kidney disease Diabetes Cancer of kidney Father Hypertension Uncle Colon cancer History Items: Diabetes, Hypertension Paternal Family History: Family History (Last Updated 03/14/18 @ 16:38 by Marga Michel) Mother Hypertension Kidney disease Diabetes Cancer of kidney Father Hypertension Uncle Colon cancer History Items: Diabetes, Hypertension Review of Systems Constitutional: Reports: - - Drowsy and lethargic. Denies: Chills, Fever, Weight Change HEENT: Denies: Head Aches, Sinus Congestion, Sinus Drainage Cardiovascular: Denies: Chest Pain, Palpitations Respiratory: Reports: Shortness of breath upon exertion. Denies: Cough, Shortness of breath at rest, Sputum production Gastrointestinal: Denies: Abdominal Pain, Nausea, Vomiting Genitourinary: Denies: Dysuria Musculoskeletal: Reports: Joint Pain, Muscle pain. Denies: Joint Tenderness Skin: Reports: Skin Changes, Wounds - Surgical wound. Denies: Rash Neurological: Denies: Numbness, Tingling, Focal weakness Psychiatric: Reports: Anxiety, Depression. Denies: Homicidal Ideations, Nina icidal Ideations Hematologic/ Lymphatic: Denies: Easy Bruising, Easy Bleeding Patient Problems: Active and Suspected Problems (Last Updated 03/14/18 @ 15:17 by Marga Michel) Acute hypoxic respiratory failure (Acute) - Physical Exam General: Cooperative, Lethargic, - - Awake and lethargic. HEENT: Atraumatic, PERRLA, EOMI, Normocephalic Neck: Supple, No JVD, Negative Carotid Bruits Lungs: Clear to auscultation, Diminished - Air entry is diminished in bilateral lung bases. Cardiovascular: Regular rate, Regular Rhythm, Normal S1, Normal S2, No murmurs Abdomen: Bowel Sounds Present, Soft, Non Tender, - - Surgical dressing present over lower anterior abdominal wall and pelvic wall to groin. Dressing is dry. Right lower quadrant BRONWYN drain present with a small amount of serosanguineous fluid. Extremities: No edema, Capillary Refill Less than 3 Seconds Skin: Ulcer/ Wound - Surgical wound Musculoskeletal: No Tenderness to Palpation of Joints or Extremities, Arthritic Changes Lymphatic: No Cervical, Supraclavicular, or Inguinal Adenopathy Neurological: Cranial nerves II-XII grossly intact, Deep Tendon Reflexes 2+/4 and Symmetrical, Neuro grossly intact Psych/Mental Status: Appropriate, Anxious Vital Signs Temp Pulse Resp BP Pulse Ox 97.3 F L 58 L 18 116/77 97 06/20/18 12:11 06/20/18 15:45 06/20/18 15:45 06/20/18 15:45 06/20/18 15:45 Oxygen Flow Rate (L/min) 8 Oxygen Delivery Method Venturi Mask Weight: 424 lb 9.765 oz Body Mass Index (BMI) 54.5 Microbiology Past 72 Hours 06/20/18 Unknown Gram Stain - Final Tissue - Abdominal Laboratory Tests Past 24 Hrs 06/20/18 06/20/18 13:00 13:00 Hep Bs Antigen Pending Hep Bs Antibody Pending Hep B Core Total Ab Pending Hepatitis C Ab (EIA) Pending HIV 1&2 Antibody Non-Reactive Assessment/Plan All Active Problems (Last Updated 03/14/18 @ 15:17 by Marga Michel) Acute hypoxic respiratory failure (Acute) Open wound anterior abdominal wall (Acute) Open wound of scalp, complicated (Acute) Infected surgical wound (Acute) Open wound of breast (Acute) The patient is a 33 year old M with history of morbid obesity, BMI 54.5 with history of sleep apnea in the past but not on oxygen currently was seen in PACU for acute hypoxic respiratory failure. Patient states he is not on oxygen during the day or nighttime or uses CPAP at night as he was cleared of sleep apnea in adult life although he had in childhood. Patient took diazepam 5 mg in evening yesterday, his home dose and was sleepy. After that patient had surgery in the morning today, i06/20/2018 under general anesthesia, intubated and had Versed, propofol, hydrocodone, fentanyl, Precedex and ketamine and Dilaudid during anesthesia. Patient was extubated and was hypoxic and put on 100% nonrebreather. Patient blood pressure is 121/63, heart rate 74, respiratory rate 18. Oxygen was tapered down and currently pulse ox 97% on 40 percent Ventimask. Patient is awake but is still drowsy and often closes eyes during conversation. Patient had excisional debridement of nonhealing hidradenitis ulcer of lower anterior abdominal wall and pubic area. patient has BRONWYN drain left. Patient has nonhealing hidradenitis ulcer along with abdominal panniculus with panniculitis with history of MRSA 1. Nonhealing hidradenitis ulcer of anterior abdominal wall and pubic area along with abdominal panniculus with panniculitis with history of MRSA status post excisional debridement and reconstruction: Postop day 0. Patient is still lethargic and groggy. Hold diazepam, antidepressant trazodone and fluoxetine. Patient had already given Narcan about 1.6 mg in PACU. Patient is being transferred to PCU. Postop bladder and bowel care. 2. Acute hypoxic respiratory failure secondary to anesthetic agents administered above: Currently on 40% FiO2. CPAP as needed at night. I think patient is has obstructive sleep apnea/obesity hypoventilation syndrome although he denies it. 3. Asthma: DuoNeb as needed. 4. Hypertension: Blood pressure is controlled. Continue home medication Psychiatric history: Patient has bipolar disorder, anxiety disorder. Morbid obesity: Needs bariatric size and nursing care. DVT prophylaxis: Lovenox 40 minutes subcu daily Code Visit Inpatient E&M: 10417 Init Hosp L3
[2018-06-20] MEDS: Lactated Ringers 1,000 ML 60 ML IV (17:02)
[2018-06-20] MEDS: oxyCODONE 5 MG Tablet 10 MG PO ×2 (17:02→21:55)
--- NOTE | 2018-06-20 17:30 | NURSING ---
Spoke with pharmacist about 1400 vancomycin dose and if it is ok to give now. Pharmacist to reschedule dose for now and recommends giving 2200 vancomycin late around midnight.
[2018-06-20] MEDS: HYDROmorphone 1 MG/ML Syringe IV ×2 (20:09→23:59)
--- NOTE | 2018-06-20 20:30 | NURSING ---
Told from charge nurse to call pt mother. asked pt and he said he would talk to his mother
[2018-06-20] MEDS: traZODone 50 MG Tablet PO (22:40)
[2018-06-20] MEDS: diazePAM 5 MG Tablet PO (22:40)
[2018-06-20] MEDS: Docusate Sodium 100 MG Capsule PO (22:40)
[2018-06-20] MEDS: FLUoxetine 20 MG Capsule PO (22:40)
[2018-06-21] VITALS (11 sets, daily range): BP systolic 128–143; BP diastolic 71–84; PULSE 70–108; RESP 17–20; TEMP 36.6–36.7; O2SAT 90–95
[2018-06-21] MEDS: diazePAM 5 MG Tablet PO (01:20)
[2018-06-21] MEDS: Enoxaparin 40 MG/0.4 ML Syringe SC (06:05)
[2018-06-21] MEDS: HYDROmorphone 1 MG/ML Syringe IV ×3 (06:05→16:13)
[2018-06-21 07:08] LABS: HEPATITIS B SURFACE AG Negative (Negative)
[2018-06-21 07:11] LABS: Hematocrit 36.8 % (40-54); Hemoglobin 11.5 g/dl (13.0-16.5); Mean Corp Hgb Conc 31.3 g/gl (32-36); Mean Corpuscular Hgb 27.6 pg (27.0-32.0); Mean Corpuscular Volume 88.5 fL (80-94); Mean Platelet Vol. 9.4 fl (6.2-12.0); Platelet Count 312 K/mm3 (150-450); RBC Distribution Width SD 45.5 fl (35.1-43.9); Red Blood Count 4.16 M/mm3 (4.6-6.2); White Blood Count 9.4 K/mm3 (4.4-11.0)
[2018-06-21 07:14] LABS: Erythrocyte Sedimentation Rate 48 mm/hr (0-15); Scan Indicated on CBC? Y/N NO
[2018-06-21 07:34] LABS: Anion Gap 7 (5-15); BUN 12 mg/dL (7-18); BUN/Creat Ratio 13.5 RATIO (10-20); Calcium,Total 7.3 mg/dL (8.5-10.1); Chloride 107 mmol/L (98-107); Creatinine, Serum 0.89 mg/dL (0.70-1.30); EST Glomerular Filtration Rate 106 mL/min (>60); Est Glom Filt Rate - Afr Amer 129 mL/min (>60); Estimated Creatinine Clearance 139.82 ml/min; Glucose 126 mg/dL (74-106); Potassium 3.8 mmol/L (3.5-5.1); Prealbumin 21.1 mg/dL (20.0-40.0); Sodium Level 140 mmol/L (136-145)
[2018-06-21 08:22] LABS: Hep B Surface Antibodies Non Reactive (.); Hep C Antibodies <0.1 s/co ratio (0.0-0.9); Hepatitis B Core Ab Total Negative (Negative)
[2018-06-21] MEDS: Docusate Sodium 100 MG Capsule PO (08:43)
[2018-06-21] MEDS: oxyCODONE 5 MG Tablet 10 MG PO (08:43)
--- NOTE | 2018-06-21 10:33 | PCM.PROGNOTE ---
Patient Problems: Active and Suspected Problems (Last Updated 03/14/18 @ 15:17 by Marga Michel) Acute hypoxic respiratory failure (Acute) Subjective: Patient weaned off of oxygen overnight. Oxygen now stable on room air. Patient denies current complaints. - Physical Exam General: Alert, Oriented x3, Cooperative, No apparent distress HEENT: Atraumatic, PERRLA, EOMI, Normocephalic Oral: Moist Mucosa Neck: Supple, No JVD, Negative Carotid Bruits Lungs: Clear to auscultation, Diminished Cardiovascular: Regular rate, Regular Rhythm, Normal S1, Normal S2, No murmurs Abdomen: Bowel Sounds Present, Soft, Non Tender, Non-Distended, Obese, - - Right lower quadrant BRONWYN drain intact. Extremities: No clubbing, No cyanosis, No edema, Capillary Refill Less than 3 Seconds Skin: No rashes, No breakdown, - - Lower abdominal dressing clean dry and intact. Musculoskeletal: No Tenderness to Palpation of Joints or Extremities Neurological: Cranial nerves II-XII grossly intact, Neuro grossly intact Psych/Mental Status: Flat Affect Vital Signs Temp Pulse Resp BP Pulse Ox 97.9 F 78 19 H 136/82 H 94 06/21/18 06:01 06/21/18 06:01 06/21/18 06:01 06/21/18 06:01 06/21/18 08:28 Oxygen Flow Rate (L/min) 8 Oxygen Delivery Method Room Air Weight: 424 lb 9.765 oz Body Mass Index (BMI) 54.5 Intake and Output for Last 24 Hours 06/19/18 06/20/18 06/21/18 23:59 23:59 23:59 Intake Total 951 / 951 809 / 809 Output Total 430 / 430 40 / 40 Balance 521 / 521 769 / 769 Microbiology Past 72 Hours 06/20/18 Unknown Gram Stain - Final Tissue - Abdominal Laboratory Tests Past 24 Hrs 06/20/18 06/20/18 06/21/18 13:00 13:00 06:36 WBC 9.4 RBC 4.16 L Hgb 11.5 L Hct 36.8 L MCV 88.5 MCH 27.6 MCHC 31.3 L RDW 14.0 RDW Differential 45.5 H Plt Count 312 MPV 9.4 ESR 48 H Sodium Potassium Chloride Carbon Dioxide Anion Gap BUN Creatinine Estim Creat Clear Calc Est GFR (MDRD) Af Amer Est GFR (MDRD) Non-Af BUN/Creatinine Ratio Glucose Calcium C-React Prot Ext Range Prealbumin Hep Bs Antigen Negative Hep Bs Antibody Non Reactive Hep B Core Total Ab Negative Hepatitis C Ab (EIA) <0.1 HIV 1&2 Antibody Non-Reactive 06/21/18 06:36 WBC RBC Hgb Hct MCV MCH MCHC RDW RDW Differential Plt Count MPV ESR Sodium 140 Potassium 3.8 Chloride 107 Carbon Dioxide 26.0 Anion Gap 7 BUN 12 Creatinine 0.89 Estim Creat Clear Calc 139.82 Est GFR (MDRD) Af Amer 129 Est GFR (MDRD) Non-Af 106 BUN/Creatinine Ratio 13.5 Glucose 126 H Calcium 7.3 L C-React Prot Ext Range 45.70 H Prealbumin 21.1 Hep Bs Antigen Hep Bs Antibody Hep B Core Total Ab Hepatitis C Ab (EIA) HIV 1&2 Antibody Medical Necessity - Tobacco Use Smoking Status: Never smoker Assessment/Plan All Active Problems (Last Updated 03/14/18 @ 15:17 by Marga Michel) Acute hypoxic respiratory failure (Acute) Open wound anterior abdominal wall (Acute) Open wound of scalp, complicated (Acute) Infected surgical wound (Acute) Open wound of breast (Acute) 1. Acute hypoxic respiratory failure secondary to anesthesia complicated by suspected obstructive sleep apnea and obesity hypoventilation syndrome-patient initially required nonrebreather/Ventimask postoperatively. He was weaned to room air overnight. Recommend outpatient testing for CUBA. 2. Nonhealing hydradenitis ulcer of the anterior abdominal wall status post excisional debridement with Dr. Weinstein 06/20/18-BRONWYN drain and lower abdominal dressings intact. Management per Dr. Weinstein. 3. Mild intermittent asthma-no acute exacerbation. 4. Hypertension-stable, not on regimen. 5. Bipolar disorder/anxiety disorder-continue home fluoxetine, trazodone regimen. Do not feel patient should be on diazepam regimen. This will need further discussed with primary care physician or current prescriber. 6. Morbid obesity-encouraged diet and lifestyle modifications. DVT prophylaxis-Lovenox This patient was seen by Beryl Rapp NP-Racheal under the supervision of Dr. Pagan.
[2018-06-21] MEDS: Mupirocin Ointment 22gm Tube 1 APPLIC TOPICAL (11:44)
--- NOTE | 2018-06-21 12:25 | CASEMGMT ---
Addendum entered by Jac Ramirez 06/21/18 15:48: Call placed to [facility] @ [phone] and they confirmed pt is current with them and receives [facility]. Resumption order placed and faxed to [facility] @ [phone]. Original Note: RN CM LIME PLANT OPERATOR CM to room to meet with patient for initial transition planning/care coordination assessment. RN CM introduced self and role at [facility]. Pt voices understanding and consents to assessment at this time. Pt resting in bed in no distress at this time. Pt is A/O at this time and answers all questions appropriately. Care providers, pharmacy, and demographics verified/updated at this time. PCP: has an appt with a new family doctor in [place], [place], to get established. Appt is July 08. Specialists: Corinna-- has appt 06/24/18. Owen Mcgovern-ID specialist for wound @ [facility]. has an appt soon but does not remember date/time. [facility] [employer] [facility] in [place], [place]. Does not remember his name. Preferred Pharmacy: [facility] Retail Insurance: [facility] Prescription Benefit: Yes Living Will/HPOA: does not have LW or HCPOA . Interested in more information and [facility] would like to talk to TEODORA to complete paperwork. Provided information on advanced directives. TEODORA Foley, notified pt would like to complete paperwork for AD. LNOK: Mother Living Arrangements: Lives with his mother in a one-story home. 3 steps to enter but has a ramp can use if needed. is usually independent with ADL's when he is well, but his mother assists him after he has surgery. Transportation: Pt states drives self and states no transportation concerns at this time. DME: has the following DME: rails/grab bars, hand held shower Denies having home O2, BIPAP/CPAP, or nebulizer Pt states no need for further DME at this time. HHC/SNF: Has never been to a SNF. is current with [facility] who are located in [place], [place]. Pt provided their phone number to this RN CM. Pt wishes to return home with HHC via [facility] and has no concerns with going home at time of discharge. CM to follow for any needs and any further discharge planning/needs. Pt voices no further concerns/needs at this time. Advised pt to ask for CM if any further questions/concerns/needs arise. Voices understanding. PLAN: Home with resumption of HHC, support of mother, and discharge plans in place. Cindi MCNALLYN RN CM
--- NOTE | 2018-06-21 13:46 | CASEMGMT ---
Social Work Met with patient to complete Advanced Care Planning. Health Care Power of Carpet Loom Fixer and Living Will completed with patient. Original provided to patient and copy placed on patient chart. Cesar CONTRERAS, [place]
--- NOTE | 2018-06-21 14:03 | PN.SURG_ITS ---
Patient Problems: Active and Suspected Problems (Last Updated 03/14/18 @ 15:17 by Marga Michel) Acute hypoxic respiratory failure (Acute) Subjective: Postop #1 Patient denies any breathing problems. He is on room air. He does have complaints of tingling in right arm. 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 He states the tingling has been improving since right after surgery. I told him it could be positional from the procedure and should resolve with time and usage of the extremity. Skin: Incision - right flank incision dry and intact. Skin graft dressing lower anterior abdominal wall is dry and intact. Neurological: Cranial nerves II-XII grossly intact Psych/Mental Status: Normal Affect, Appropriate Vital Signs Temp Pulse Resp BP Pulse Ox 97.8 F 88 17 128/71 H 92 06/21/18 11:53 06/21/18 11:53 06/21/18 11:53 06/21/18 11:53 06/21/18 11:53 Oxygen Flow Rate (L/min) 8 Oxygen Delivery Method Room Air Weight: 424 lb 9.765 oz Body Mass Index (BMI) 54.5 Intake and Output for Last 24 Hours 06/19/18 06/20/18 06/21/18 23:59 23:59 23:59 Intake Total 951 / 951 1690 / 1690 Output Total 430 / 430 40 / 40 Balance 521 / 521 1650 / 1650 Microbiology Past 72 Hours 06/20/18 Unknown Gram Stain - Final Tissue - Abdominal Wound Culture - Preliminary No growth-Final to follow Laboratory Tests Past 24 Hrs 06/20/18 06/20/18 06/21/18 13:00 13:00 06:36 WBC 9.4 RBC 4.16 L Hgb 11.5 L Hct 36.8 L MCV 88.5 MCH 27.6 MCHC 31.3 L RDW 14.0 RDW Differential 45.5 H Plt Count 312 MPV 9.4 ESR 48 H Sodium Potassium Chloride Carbon Dioxide Anion Gap BUN Creatinine Estim Creat Clear Calc Est GFR (MDRD) Af Amer Est GFR (MDRD) Non-Af BUN/Creatinine Ratio Glucose Calcium C-React Prot Ext Range Prealbumin Hep Bs Antigen Negative Hep Bs Antibody Non Reactive Hep B Core Total Ab Negative Hepatitis C Ab (EIA) <0.1 HIV 1&2 Antibody Non-Reactive 06/21/18 06:36 WBC RBC Hgb Hct MCV MCH MCHC RDW RDW Differential Plt Count MPV ESR Sodium 140 Potassium 3.8 Chloride 107 Carbon Dioxide 26.0 Anion Gap 7 BUN 12 Creatinine 0.89 Estim Creat Clear Calc 139.82 Est GFR (MDRD) Af Amer 129 Est GFR (MDRD) Non-Af 106 BUN/Creatinine Ratio 13.5 Glucose 126 H Calcium 7.3 L C-React Prot Ext Range 45.70 H Prealbumin 21.1 Hep Bs Antigen Hep Bs Antibody Hep B Core Total Ab Hepatitis C Ab (EIA) HIV 1&2 Antibody Medical Necessity - Tobacco Use Smoking Status: Never smoker Assessment/Plan All Active Problems (Last Updated 03/14/18 @ 15:17 by Marga Michel) Acute hypoxic respiratory failure (Acute) Open wound anterior abdominal wall (Acute) Open wound of scalp, complicated (Acute) Infected surgical wound (Acute) Open wound of breast (Acute) 1. Nonhealing hidradenitis ulcer lower anterior abdominal wall. 2. Hidradenitis lower anterior abdominal wall skin crease. 3. Hidradenitis bilateral inguinal areas extending onto pubic area. 4. Abdominal panniculus with panniculitis. 5. Abdominal wall skin crease intertrigo. 6. History of MRSA. 7. Obesity. 8. Family history of skin cancer. 9. s/p surgical preparation lower anterior abdominal wall with excisional debridement nonhealing hidradenitis ulcer with STSG reconstruction from the right flank (153 cm2). 10. Postop hypoxia, resolved. 11. Right arm paresthesias, resolving. Patient is breathing without problems and on room air. Discussed evaluation as an outpatient for CUBA with a sleep study. He states he has had them in the past and were negative. The testing was greater than 5 years ago. He can followup with Pulmonology for that as an outpatient as he lives out of town (about 2 hours away). His right arm paresthesias are probably related to positioning on the OR table. We had placed a bump under his right hip to gain exposure to the flank for the donor site for the skin graft. This may have lifted up the shoulder slightly with the arm still on the arm board which may have led to some stretching of the nerves leading to the paresthesias. With time and activity it should resolve. At the wound center, if it is persistent, will set him up for OT for range of motion exercises. Skin graft dressing is dry and intact. Donor incision right flank is dry and intact. Operative culture is negative thus far. He is being treated perioperatively with Vancomycin. Will send home on Cefadroxil. He has trouble with Doxycycline with upset stomach. Discharge home today. Wrote script for Cefadroxil for 10 days. Wrote script for Dilaudid for pain, 8 mg, (30 tabs) and for Valium for spasm (15 tabs). Wrote script for Bactroban ointment to be applied to the suture line right flank donor incision daily. Followup Wound Center Sunday06/24/18. Routine drain care to be emptied daily and recorded. There will be no showering until the drain is removed.
--- NOTE | 2018-06-21 14:24 | PCM.DC ---
- Discharge Diagnoses Current Active Problems: Current Active and Chronic Problems (Last Updated 03/14/18 @ 15:17 by Marga Michel) Acute hypoxic respiratory failure (Acute) You will use the following diet at home:: No restrictions Discharge Activity: May Not Shower - until the drain is removed at the wound center. May shower in (days): 10 - after the drain is removed. May resume sexual activity in: No Restrictions Weight Bearing Status: Weight bearing as tolerated Call your doctor if your incision/area has: Continuous Slow Oozing, Sudden Increased Bleeding, Increased Pain/ Swelling, Increased Redness, Foul Smelling Discharge, Swelling at the incision site Call your doctor if you observe: Fever of 101 or Higher, Coldness, Increased Pain, Shortness of breath, Chest pain, Calf discomfort, Uncontrolled pain Suture Line Care: - - apply antibiotic ointment to suture line right flank daily. Change Dressing in (Days):: 1 - may change the right flank donor incision daily. Remove Dressing in (days):: 3 - will remove skin graft dresisng lower anterior abdominal wall at wound center on sunday06/24/18. Cleanse incision/area with: - - may get incision and skin graft wet in the shower after the drain is removed. Drain: Suction - kira drain to bulb suction. empty and record output daily. Allergies/Adverse Reactions: Allergies morphine Allergy (Verified 06/13/18 11:22) Rash Sulfa (Sulfonamide Antibiotics) Allergy (Verified 06/13/18 11:22) Other GOT FEVER Medications to take at Discharge Trazodone HCl 50 mg PO QHS 07/20/14 Fluoxetine [Prozac] 20 mg PO QHS 09/28/15 Docusate Sodium [Colace] 100 mg PO BID #60 cap 04/18/18 Cefadroxil [Duricef] 500 mg PO BID #20 cap 06/21/18 Diazepam [Valium] 5 mg PO BID #15 tab 06/21/18 Hydromorphone HCl [Dilaudid] 8 mg PO 4X/DAY PRN PRN 7 Days #30 tab 06/21/18 Mupirocin [Bactroban] 1 applic TOPICAL DAILY #3 tube 06/21/18 The following prescriptions were given: Hydromorphone HCl [Dilaudid] 8 mg PO 4X/DAY PRN PRN 7 Days #30 tab PRN Reason: Pain Mupirocin [Bactroban] 1 applic TOPICAL DAILY #3 tube Cefadroxil [Duricef] 500 mg PO BID #20 cap Diazepam [Valium] 5 mg PO BID #15 tab Primary Care Physician: Care Physician,No Primary [Primary Care Provider] - Test Results: Test results from this visit will be discussed in further detail at your follow-up appointment, if applicable. Please Follow Up With: Cosme Weinstein MD When: sunday06/24/18 at [facility]. Please Follow Up With: pulmonology When: 2-4 weeks to evaluate for CUBA with sleep study. Proposed Discharge Date: 06/21/18
--- NOTE | 2018-06-21 15:09 | CASEMGMT ---
Addendum entered by Jac Ramirez 06/21/18 15:30: Yuni made aware pt is discharging today 06/21/18. Original Note: RN CM NOTE: Call received from Yuni from [facility]. She asked for Operative Notes be faxed to her. Same done. Cindi MCNALLYN LIZZETTE CM
== END 2018-06-21 18:00 | disposition home or self-care (01) | DRG 573 ==
LOC: PCU 21:03 → SDC 06-21 07:34 → PCU 06-21 07:34
PROVIDERS: Admitting Provider Surgery; Referring Provider Surgery; Visit Provider Internal Medicine
PROC: 0WBF0ZZ Excision of Abdominal Wall, Open Approach (ICD-10-PCS; principal; 2018-06-20 07:45)
DX: L98.499 Non-pressure chronic ulcer of skin of other sites with unspecified severity (principal); J96.01 Acute respiratory failure with hypoxia; Z68.43 Body mass index [BMI] 50.0-59.9, adult; L73.2 Hidradenitis suppurativa; M79.3 Panniculitis, unspecified; L30.4 Erythema intertrigo; E66.01 Morbid (severe) obesity due to excess calories; J45.20 Mild intermittent asthma, uncomplicated; R20.2 Paresthesia of skin; F31.9 Bipolar disorder, unspecified; F41.9 Anxiety disorder, unspecified; Z86.14 Personal history of Methicillin resistant Staphylococcus aureus infection; Z80.8 Family history of malignant neoplasm of other organs or systems
CPT/HCPCS: 36415; 80048; 84134; 85027; 85652; 86140; 86703; 86704; 86706; 86803; 87070; 87075; 87102; 87205; 87206; 87340; 88304; 94640; J7040; J7120; A4216; J2310; J2405

== ENCOUNTER 2018-06-24 10:30 | Outpatient (RCR) | payer MEDICARE, MEDICAID, SELFPAY ==
[2018-06-07 01:47] VITALS: BP 155/94; PULSE 103; RESP 20; TEMP 37.2
[2018-06-10 09:52] VITALS: BP 146/100; PULSE 79; RESP 16; TEMP 37.2; BMI 53.8
--- NOTE | 2018-06-10 17:35 | PCM.WC.PN ---
Type of Wound Date of Service: 06/10/18 Chief Complaint: Nonhealing hidradenitis ulcer lower anterior abdominal wall. History of Wound: Surgery 04/16/18 - Surgical preparation lower anterior abdominal wall and pubic area with excision skin and subcutaneous tissue for necrotizing soft tissue hidradenitis infection (798 cm2). Wound care - VAC. Operative culture - negative. He was treated perioperatively with Doxycycline. His local physician changed the Doxycycline to Cefadroxil because he had trouble tolerating the Doxycycline. Pathology - focal chronic inflammation and no carcinoma seen. His Prealbumin on 04/17/18 was 27.9. Encourage nutritional supplementation with protein to help the healing process. He denies fever. His appetite is good. Progress of Wound: Improved. - Physical Exam Vital Signs Temp Pulse Resp BP 98.9 F 79 16 146/100 H 06/10/18 09:52 06/10/18 09:52 06/10/18 09:52 06/10/18 09:52 Wound Measurements and Assessment WC - Nurse 1 - General Ulcer Measurement Start: 06/10/18 09:52 Freq: Status: Active Protocol: Activity Type Activity Date Activity User E-Sign Co-Sign Detail Recorded Client Recorded Date Recorded By Document 06/10/18 09:52 RB [id number] 06/10/18 10:01 RB 06/10/18 09:52 Wound Center Nurse 1 [Ulcer Assessment] #3 LOWER ABDOMEN -Combined with other wound No -Current Size (cm) - Length 3 -Current Size (cm) - Width 50.4 -Current Size (cm) - Depth 0.2 -Total Square Cm 151.2 -Tunneling No -Undermining/Tunneling No -Circular Undermining No -Exudate Amt Large -Exudate Type Serosanguineous -Wound Margin Distinct, Outline Attached -Granulation Amt Large (67-100%) -Granulation Quality [place] Red -Slough/Fibrin Yes -Necrosis Amt Small (1-33%) -Necrotic Tissue Type Adherent Slough -Structure Exposed N/A -Texture (Pauline-wound Skin Appearance) Assessed Friable Scarring -Moisture (Pauline-wound Skin Appearance Assessed ) -Color (Pauline-wound Skin Appearance) Assessed -Temperature (Pauline-wound Skin No Abnormality Appearance) (Pt Warm) -Tenderness on Palpation (Pauline-wound No Skin Appearance) -Ulcer Cleansing Wound Cleanser -Anesthetic Used 5% Lidocaine Gel WC - Nurse 2 - General Ulcer CM Notes Start: 06/10/18 09:52 Freq: Status: Active Protocol: Activity Type Activity Date Activity User E-Sign Co-Sign Detail Recorded Client Recorded Date Recorded By Document 06/10/18 11:10 [email or web address] [id number] 06/10/18 11:12 [email or web address] 06/10/18 11:10 Wound Center Nurse 2 [Procedure/Treatment] -Time 11:10 -Correct Patient Yes -Correct Side, Site, Position Yes -Correct Procedure Yes -Procedure Performed Yes -Type of Procedure Debridement -Clinical Debridement Subcutaneous -Post Debridement Size (cm) - Length 3 -Post Debridement Size (cm) - Width 50.5 -Post Debridement Size (cm) - Depth 0.2 -Total Square Cm 151.5 -Wound/Ulcer Outcome Not Healed -Ulcer Cleansing Rinsed/ Irrigated with Saline -Foul Odor after Cleansing No -Bioengineered Tissue No -Bleeding Controlled with Pressure -Offloading No -Treatment Response Procedure Tolerated Well [See Physician Procedure note for Specifics] Pain Scale: 0-10 Numeric [Pain] -Is Patient Pain Free? Yes Debridement Note Post-Debridement Measurements/Treatment - Nurse 2 - General Ulcer CM Notes Start: 06/10/18 09:52 Freq: Status: Active Protocol: Activity Type Activity Date Activity User E-Sign Co-Sign Detail Recorded Client Recorded Date Recorded By Document 06/10/18 11:10 [email or web address] [id number] 06/10/18 11:12 [email or web address] 06/10/18 11:10 Wound Center Nurse 2 #3 LOWER ABDOMEN -Time 11:10 -Correct Patient Yes -Correct Side, Site, Position Yes -Correct Procedure Yes -Procedure Performed Yes -Type of Procedure Debridement -Clinical Debridement Subcutaneous -Post Debridement Size (cm) - Length 3 -Post Debridement Size (cm) - Width 50.5 -Post Debridement Size (cm) - Depth 0.2 -Total Square Cm 151.5 -Wound/Ulcer Outcome Not Healed -Ulcer Cleansing Rinsed/ Irrigated with Saline -Foul Odor after Cleansing No -Bioengineered Tissue No -Bleeding Controlled with Pressure -Offloading No -Treatment Response Procedure Tolerated Well Pain Scale: 0-10 Numeric Is Patient Pain Free? Yes Wound debrided: #3 Lower anterior abdominal wall. Laterality: Not Applicable Wound Grade/Stage: 2. Type of Debridement: Excisional debridement Anesthesia Used: 4% Lidocaine Solution Depth: Down to and including healthy tissue, in the subcutaneous layer Percentage of wound debrided: 100 Instrument Used: 5mm curette Tissue Removed: subcutaneous tissue. Severity: Fat Layer Exposed Amount of bleeding with debridement: Mild Bleeding Controlled with: Pressure Patient tolerated procedure well Assessment/Plan Assessment: 1. Hidradenitis lower anterior abdominal wall skin crease. 2. Nonhealing hidradenitis ulcer lower anterior abdominal wall. 3. Hidradenitis bilateral inguinal areas extending onto pubic area. 4. Abdominal panniculus with panniculitis. 5. Abdominal wall skin crease intertrigo. 6. History of MRSA. 7. Obesity. 8. Family history of skin cancer. 9. Infected cystic lesion right upper neck by the earlobe, resolved. Plan: Continue Dakin's dressing changes to the lower anterior abdominal wall. Patient states the pain can be unbearable at times. He has been having problems with the wound care. He has enough pain medication at this time. The wound is more superficial, and can proceed with delayed closure with skin grafting. That may be safer than trying a complex secondary wound closure with his propensity for infection. He wants to pursue the skin graft surgery. It is scheduled for 06/20/18. His Prealbumin on 04/17/18 was 27.9. Encourage nutritional supplementation with protein to help the healing process. His HgbA1c on 04/16/18 was 5.8. So he would be able to proceed with the skin grafting. He has finished the Cleocin as the redness in his right upper neck by the earlobe has resolved. The patient was informed of the risks and complications of the procedure including alternatives to surgery. These were discussed with the patient personally. The patient voices understanding and wishes to proceed. Surgery will be done under general anesthesia with an overnight stay at the hospital. Followup 2 weeks.
[2018-06-24 10:51] VITALS: BP 149/92; PULSE 104; RESP 24; TEMP 36.4; BMI 53.8
--- NOTE | 2018-06-24 13:12 | PN.PCM_ITS ---
Type of Wound Date of Service: 06/24/18 Chief Complaint: Nonhealing hidradenitis ulcer lower anterior abdominal wall with recent skin grafting 06/20/18. History of Wound: Surgery 06/20/18 - Surgical preparation lower anterior abdominal wall with excisional debridement nonhealing hidradenitis ulcer with STSG reconstruction from the right flank (153 cm2). Wound care - Operative compression dressing. Operative culture - negative. He was treated perioperatively with Cefadroxil. Pathology - Extensive ulceration and acute and chronic inflammmation and granulation tissue reaction. seen. His Prealbumin on 06/21/18 was 21.1. Encourage nutritional supplementation with protein to help the healing process. He denies fever. His appetite is good. His drainage from the right flank drain has been 40-50 ml/day. Progress of Wound: Recent skin grafting 06/20/18. - Physical Exam Vital Signs Temp Pulse Resp BP 97.6 F L 104 H 24 H 149/92 H 06/24/18 10:51 06/24/18 10:51 06/24/18 10:51 06/24/18 10:51 Wound Measurements and Assessment WC - Nurse 1 - General Ulcer Measurement Start: 06/10/18 09:52 Freq: Status: Active Protocol: Activity Type Activity Date Activity User E-Sign Co-Sign Detail Recorded Client Recorded Date Recorded By Document 06/24/18 10:51 DL [id number] 06/24/18 11:13 DL 06/24/18 10:51 Wound Center Nurse 1 [Ulcer Assessment] #3 LOWER ABDOMEN -Combined with other wound No -Current Size (cm) - Length 0.1 -Current Size (cm) - Width 0.1 -Current Size (cm) - Depth 0.1 -Total Square Cm 0.01 -Date of Last Picture (Recall this 06/24/18 field) -Photo Taken Yes -Tunneling No -Undermining/Tunneling No -Circular Undermining No -Classification - Thickness Full Thickness without Exposed Support Structure -Exudate Amt None Present -Wound Margin Flat & Intact -Granulation Amt Large (67-100%) -Granulation Quality [place] -Necrosis Amt None Present (0 %) -Structure Exposed N/A -Texture (Pauline-wound Skin Appearance) Scarring -Moisture (Pauline-wound Skin Appearance No Abnormality ) -Color (Pauline-wound Skin Appearance) No Abnormality -Temperature (Pauline-wound Skin No Abnormality Appearance) (Pt Warm) -Ulcer Cleansing Wound Cleanser -Foul Odor after Cleansing No WC - Nurse 2 - General Ulcer CM Notes Start: 06/10/18 09:52 Freq: Status: Active Protocol: Activity Type Activity Date Activity User E-Sign Co-Sign Detail Recorded Client Recorded Date Recorded By Document 06/24/18 12:01 [id number] 06/24/18 12:02 06/24/18 12:01 Wound Center Nurse 2 [Procedure/Treatment] -Correct Patient No -Correct Side, Site, Position No -Correct Procedure No -Procedure Performed No -Post Debridement Size (cm) - Length 0.1 -Post Debridement Size (cm) - Width 0.1 -Post Debridement Size (cm) - Depth 0.1 -Total Square Cm 0.01 -Ulcer Cleansing Rinsed/ Irrigated with Saline -Foul Odor after Cleansing No -Bioengineered Tissue No -Bleeding Controlled with Pressure -Offloading No -Treatment Response Procedure Tolerated Well [See Physician Procedure note for Specifics] Pain Scale: 0-10 Numeric [Pain] -Is Patient Pain Free? Yes Debridement Note Post-Debridement Measurements/Treatment - Nurse 2 - General Ulcer CM Notes Start: 06/10/18 09:52 Freq: Status: Active Protocol: Activity Type Activity Date Activity User E-Sign Co-Sign Detail Recorded Client Recorded Date Recorded By Document 06/10/18 11:10 [id number] 06/10/18 11:12 Document 06/24/18 12:01 [id number] 06/24/18 12:02 06/10/18 06/24/18 11:10 12:01 Wound Center Nurse 2 #3 LOWER ABDOMEN -Time 11:10 -Correct Patient Yes No -Correct Side, Site, Position Yes No -Correct Procedure Yes No -Procedure Performed Yes No -Type of Procedure Debridement -Clinical Debridement Subcutaneous -Post Debridement Size (cm) - Length 3 0.1 -Post Debridement Size (cm) - Width 50.5 0.1 -Post Debridement Size (cm) - Depth 0.2 0.1 -Total Square Cm 151.5 0.01 -Wound/Ulcer Outcome Not Healed -Ulcer Cleansing Rinsed/ Rinsed/ Irrigated with Irrigated with Saline Saline -Foul Odor after Cleansing No No -Bioengineered Tissue No No -Bleeding Controlled with Pressure Pressure -Offloading No No -Treatment Response Procedure Procedure Tolerated Well Tolerated Well Pain Scale: 0-10 Numeric Is Patient Pain Free? Yes Yes Wound debrided: #3 Lower anterior abdominal wall. Laterality: Not Applicable Wound Grade/Stage: 2. No debridement was completed today - the ulcer was recent skin grafted on 06/20/18. Assessment/Plan Assessment: 1. Nonhealing hidradenitis ulcer lower anterior abdominal wall, recent skin grafting on 06/20/18. 2. Hidradenitis lower anterior abdominal wall skin crease. 3. Hidradenitis bilateral inguinal areas extending onto pubic area. 4. Abdominal panniculus with panniculitis. 5. Abdominal wall skin crease intertrigo. 6. History of MRSA. 7. Obesity. 8. Family history of skin cancer. Plan: The operative dressing was removed off the skin graft lower anterior abdominal wall. The skin graft showed good adherence and about 80% take. Will apply Bactroban ointment to the graft daily or every other day depending on his availability of Home Health services. times. His operative culture is negative and he will continue the Cefadroxil until the drain is removed. The drainage has been 40-50 ml/day. Because he lives out of town, I will leave the drain in and remove it at his next visit in 2 weeks. Will remove the donor incision suture at his next visit as well. Prealbumin from 06/21/18 was 21.1. Encourage nutritional supplementation with protein to help the healing process. I renewed his Dilaudid, 8mg, for pain (30 tabs), to be dispensed on 06/28/18. Followup 2 weeks. Discussed with the patient that if there is evidence of skin graft compromise over the next few weeks, he should be evaluated for HBO treatments to try and salvage any compromise to the skin graft. Because he lives out of town, the HBO treatments can be done in [place]. Patient voices understanding.
== END 2018-07-07 23:59 ==
LOC: WC 10:30
PROVIDERS: Visit Provider Surgery
DX: L73.2 Hidradenitis suppurativa (principal); Z86.14 Personal history of Methicillin resistant Staphylococcus aureus infection; L30.4 Erythema intertrigo; M79.3 Panniculitis, unspecified; L98.492 Non-pressure chronic ulcer of skin of other sites with fat layer exposed; E66.9 Obesity, unspecified; Z71.3 Dietary counseling and surveillance
CPT/HCPCS: 11042; 11045; 99213; G0463

== ENCOUNTER 2018-08-05 10:45 | Outpatient (RCR) | payer MEDICARE, MEDICAID, SELFPAY ==
[2018-07-08 01:21] VITALS: BP 149/92; PULSE 104; RESP 24; TEMP 36.4
[2018-07-08 10:13] VITALS: BP 161/97; PULSE 97; RESP 18; TEMP 37.2; BMI 53.8
--- NOTE | 2018-07-08 18:03 | PN.PCM_ITS ---
Type of Wound Date of Service: 07/08/18 Chief Complaint: Nonhealing hidradenitis ulcer lower anterior abdominal wall with recent skin grafting 06/20/18, with some compromise and nonhealing surgical wound right flank donor incision. History of Wound: Surgery 06/20/18 - Surgical preparation lower anterior abdominal wall with excisional debridement nonhealing hidradenitis ulcer with STSG reconstruction from the right flank (153 cm2). Wound care - Operative compression dressing. Operative culture - negative. He was treated perioperatively with Cefadroxil. Pathology - Extensive ulceration and acute and chronic inflammmation and granulation tissue reaction. His Prealbumin on 06/21/18 was 21.1. Encourage nutritional supplementation with protein to help the healing process. He denies fever. His appetite is good. Since his last visit, he developed an infection in the donor incision right flank and was hospitalized in [place]. The anterior portion of the flank incision was opened up and Silver dressing changes were started. The drain is still in even though there is no more suction since the wound has opened up. He was discharged on Levaquin. It was noted during his recent hospitalization that there was some compromise on the skin graft. Progress of Wound: Recent skin grafting 06/20/18 with some compromise and nonhealing surgical wound right flank donor incision. - Physical Exam Vital Signs Temp Pulse Resp BP 98.9 F 97 18 161/97 H 07/08/18 10:13 07/08/18 10:13 07/08/18 10:13 07/08/18 10:13 Skin: Ulcer/ Wound - there appears to be some compromise of the skin graft in the lower anterior abdominal wall. The loose nonadherent graft was debrided. About 30% compromise. Good granulation tissue is underneath the graft. Wound Measurements and Assessment WC - Nurse 1 - General Ulcer Measurement Start: 07/08/18 10:13 Freq: Status: Active Protocol: Activity Type Activity Date Activity User E-Sign Co-Sign Detail Recorded Client Recorded Date Recorded By Document 07/08/18 10:13 AN [id number] 07/08/18 10:37 AN 07/08/18 10:13 Wound Center Nurse 1 [Ulcer Assessment] #3 LOWER ABDOMEN -Current Size (cm) - Length 2.4 -Current Size (cm) - Width 7.5 -Current Size (cm) - Depth 4.2 -Total Square Cm 18.00 -Date of Last Picture (Recall this 07/08/18 field) -Photo Taken Yes -Epithelialization None Present -Tunneling Yes -Tunneling Position (O'clock) 10 -Tunneling Distance (cm) 2.8 -Classification - Thickness Full Thickness without Exposed Support Structure -Exudate Amt Large -Exudate Type Yellow/Green -Wound Margin Distinct, Outline Attached -Granulation Amt Large (67-100%) -Granulation Quality Red -Slough/Fibrin Yes -Necrosis Amt Small (1-33%) -Necrotic Tissue Type Adherent Slough -Structure Exposed None/Limited to Skin Breakdown -Texture (Pauline-wound Skin Appearance) Assessed -Moisture (Pauline-wound Skin Appearance Assessed ) -Color (Pauline-wound Skin Appearance) Assessed Erythema -Temperature (Pauline-wound Skin No Abnormality Appearance) (Pt Warm) -Tenderness on Palpation (Pauline-wound Yes Skin Appearance) -Ulcer Cleansing Rinsed/ Irrigated with Saline -Foul Odor after Cleansing Yes -Anesthetic Used 4% Lidocaine Solution WC - Nurse 2 - General Ulcer CM Notes Start: 07/08/18 10:13 Freq: Status: Active Protocol: Activity Type Activity Date Activity User E-Sign Co-Sign Detail Recorded Client Recorded Date Recorded By Document 07/08/18 11:30 [id number] 07/08/18 11:35 07/08/18 11:30 Wound Center Nurse 2 [Procedure/Treatment] -Time 11:31 -Correct Patient Yes -Correct Side, Site, Position Yes -Correct Procedure Yes -Procedure Performed Yes -Type of Procedure Debridement -Clinical Debridement Subcutaneous -Post Debridement Size (cm) - Length 2.5 -Post Debridement Size (cm) - Width 7.5 -Post Debridement Size (cm) - Depth 4.2 -Total Square Cm 18.75 -Wound/Ulcer Outcome Not Healed -Ulcer Cleansing Rinsed/ Irrigated with Saline -Foul Odor after Cleansing No -Bioengineered Tissue No -Bleeding Controlled with Pressure -Offloading No -Treatment Response Procedure Tolerated Well [See Physician Procedure note for Specifics] Pain Scale: 0-10 Numeric [Pain] -Is Patient Pain Free? Yes Debridement Note Post-Debridement Measurements/Treatment WC - Nurse 2 - General Ulcer CM Notes Start: 07/08/18 10:13 Freq: Status: Active Protocol: Activity Type Activity Date Activity User E-Sign Co-Sign Detail Recorded Client Recorded Date Recorded By Document 07/08/18 11:30 [email or web address] [id number] 07/08/18 11:35 [email or web address] 07/08/18 11:30 Wound Center Nurse 2 #3 LOWER ABDOMEN -Time 11:31 -Correct Patient Yes -Correct Side, Site, Position Yes -Correct Procedure Yes -Procedure Performed Yes -Type of Procedure Debridement -Clinical Debridement Subcutaneous -Post Debridement Size (cm) - Length 2.5 -Post Debridement Size (cm) - Width 7.5 -Post Debridement Size (cm) - Depth 4.2 -Total Square Cm 18.75 -Wound/Ulcer Outcome Not Healed -Ulcer Cleansing Rinsed/ Irrigated with Saline -Foul Odor after Cleansing No -Bioengineered Tissue No -Bleeding Controlled with Pressure -Offloading No -Treatment Response Procedure Tolerated Well Pain Scale: 0-10 Numeric Is Patient Pain Free? Yes Wound debrided: #3 Lower anterior abdominal wall skin graft with compromise. Laterality: Not Applicable Wound Grade/Stage: 2. Type of Debridement: Excisional debridement Anesthesia Used: 4% Lidocaine Solution Depth: Down to and including healthy tissue, in the subcutaneous layer Percentage of wound debrided: 100 Instrument Used: 3mm curette, - - scissors. Tissue Removed: some compromised devitalized skin graft and subcutaneous tissue. Severity: Fat Layer Exposed Amount of bleeding with debridement: Mild Bleeding Controlled with: Pressure Patient tolerated procedure well Assessment/Plan Assessment: 1. Nonhealing hidradenitis ulcer lower anterior abdominal wall, re cent skin grafting on 06/20/18. 2. Early skin graft compromise lower anterior abdominal wall. 3. Hidradenitis lower anterior abdominal wall skin crease. 4. Hidradenitis bilateral inguinal areas extending onto pubic area. 5. Abdominal panniculus with panniculitis. 6. Abdominal wall skin crease intertrigo. 7. History of MRSA. 8. Obesity. 9. Family history of skin cancer. 10. Nonhealing surgical wound donor incision right flank. Plan: Continue Silver dressing changes to the right flank donor incision and to the compromised skin graft. The drain was removed today without difficulty. Some sutures were removed today. Will remove the remaining ones at his next visit. He will continue the Levaquin. There is some compromise to the skin graft (about 30%). He would benefit from HBO treatments to help salvage the graft. He states he will go to [facility] because it is closer to home to get his HBO. Prealbumin from 06/21/18 was 21.1. Encourage nutritional supplementation with protein to help the healing process. Followup 2 weeks.
[2018-07-22 11:13] VITALS: BP 155/96; PULSE 102; RESP 18; TEMP 37; BMI 53.8
--- NOTE | 2018-07-22 12:23 | PCM.WC.PN ---
Type of Wound Date of Service: 07/22/18 Chief Complaint: Nonhealing hidradenitis ulcer lower anterior abdominal wall with skin grafting 06/20/18, with some compromise and nonhealing surgical wound right flank donor incision. History of Wound: Surgery 06/20/18 - Surgical preparation lower anterior abdominal wall with excisional debridement nonhealing hidradenitis ulcer with STSG reconstruction from the right flank (153 cm2). Wound care - Silver Operative culture - negative. He was treated perioperatively with Cefadroxil. Pathology - Extensive ulceration and acute and chronic inflammmation and granulation tissue reaction. His Prealbumin on 06/21/18 was 21.1. Encourage nutritional supplementation with protein to help the healing process. He denies fever. His appetite is good. Postop, he developed an infection in the donor incision right flank and was hospitalized in [place]. The anterior portion of the flank incision was opened up and Silver dressing changes were started. He was discharged on Levaquin. It was noted during his recent hospitalization that there was some compromise on the skin graft. It was recommended that he get HBO treatments to salvage the compromised graft. Since he lives out of town, he went to [place] for evaluation for HBO. When he was seen, there was noted improvement in the healing of the graft and HBO was put on hold in [place]. Progress of Wound: Skin grafting 06/20/18 with some compromise and nonhealing surgical wound right flank donor incision. - Physical Exam Vital Signs Temp Pulse Resp BP 98.6 F 102 H 18 155/96 H 07/22/18 11:13 07/22/18 11:13 07/22/18 11:13 07/22/18 11:13 Skin: Ulcer/ Wound - The compromise of the skin graft in the lower anterior abdominal wall has improved. More skin graft adherence and healing is noted. The compromised graft has improved and decreased to 15%. Good granulation tissue noted in the ulcerated areas. Wound Measurements and Assessment WC - Nurse 1 - General Ulcer Measurement Start: 07/08/18 10:13 Freq: Status: Active Protocol: Activity Type Activity Date Activity User E-Sign Co-Sign Detail Recorded Client Recorded Date Recorded By Document 07/22/18 11:13 DV [id number] 07/22/18 11:38 DV 07/22/18 11:13 Wound Center Nurse 1 [Ulcer Assessment] #3 LOWER ABDOMEN -Combined with other wound No -Current Size (cm) - Length 2.5 -Current Size (cm) - Width 7.5 -Current Size (cm) - Depth 4.0 -Total Square Cm 18.75 -Photo Taken No -Epithelialization None Present -Tunneling No -Undermining/Tunneling No -Circular Undermining No -Exudate Amt Large -Exudate Type Serous -Wound Margin Fibrotic Scar, Thickened Scar WC - Nurse 2 - General Ulcer CM Notes Start: 07/08/18 10:13 Freq: Status: Active Protocol: Activity Type Activity Date Activity User E-Sign Co-Sign Detail Recorded Client Recorded Date Recorded By Document 07/22/18 12:04 MW [id number] 07/22/18 12:19 MW 07/22/18 12:04 Wound Center Nurse 2 [Procedure/Treatment] -Time 12:07 -Correct Patient Yes -Correct Side, Site, Position Yes -Correct Procedure Yes -Procedure Performed Yes -Type of Procedure Debridement -Clinical Debridement Subcutaneous -Post Debridement Size (cm) - Length 2.8 -Post Debridement Size (cm) - Width 8.0 -Post Debridement Size (cm) - Depth 2.2 -Total Square Cm 22.40 -Wound/Ulcer Outcome Not Healed -Ulcer Cleansing Rinsed/ Irrigated with Saline -Foul Odor after Cleansing No -Bioengineered Tissue No -Bleeding Controlled with Pressure -Offloading No -Treatment Response Procedure Tolerated Well [See Physician Procedure note for Specifics] Pain Scale: 0-10 Numeric [Pain] -Is Patient Pain Free? Yes Debridement Note Post-Debridement Measurements/Treatment WC - Nurse 2 - General Ulcer CM Notes Start: 07/08/18 10:13 Freq: Status: Active Protocol: Activity Type Activity Date Activity User E-Sign Co-Sign Detail Recorded Client Recorded Date Recorded By Document 07/08/18 11:30 [id number] 07/08/18 11:35 Document 07/22/18 12:04 MW [id number] 07/22/18 12:19 MW 07/08/18 07/22/18 11:30 12:04 Wound Center Nurse 2 #3 LOWER ABDOMEN -Time 11:31 12:07 -Correct Patient Yes Yes -Correct Side, Site, Position Yes Yes -Correct Procedure Yes Yes -Procedure Performed Yes Yes -Type of Procedure Debridement Debridement -Clinical Debridement Subcutaneous Subcutaneous -Post Debridement Size (cm) - Length 2.5 2.8 -Post Debridement Size (cm) - Width 7.5 8.0 -Post Debridement Size (cm) - Depth 4.2 2.2 -Total Square Cm 18.75 22.40 -Wound/Ulcer Outcome Not Healed Not Healed -Ulcer Cleansing Rinsed/ Rinsed/ Irrigated with Irrigated with Saline Saline -Foul Odor after Cleansing No No -Bioengineered Tissue No No -Bleeding Controlled with Pressure Pressure -Offloading No No -Treatment Response Procedure Procedure Tolerated Well Tolerated Well Pain Scale: 0-10 Numeric Is Patient Pain Free? Yes Yes Wound debrided: #3 Lower anterior abdominal wall. Laterality: Not Applicable Wound Grade/Stage: 2. Type of Debridement: Excisional debridement Anesthesia Used: 4% Lidocaine Solution Depth: Down to and including healthy tissue, in the subcutaneous layer Percentage of wound debrided: 100 Instrument Used: 5mm curette Tissue Removed: subcutaneous tissue. Severity: Fat Layer Exposed Amount of bleeding with debridement: Mild Bleeding Controlled with: Pressure Patient tolerated procedure well Assessment/Plan Assessment: 1. Nonhealing hidradenitis ulcer lower anterior abdominal wall, recent skin grafting on 06/20/18. 2. Early skin graft compromise lower anterior abdominal wall. 3. Hidradenitis lower anterior abdominal wall skin crease. 4. Hidradenitis bilateral inguinal areas extending onto pubic area. 5. Abdominal panniculus with panniculitis. 6. Abdominal wall skin crease intertrigo. 7. History of MRSA. 8. Obesity. 9. Family history of skin cancer. 10. Nonhealing surgical wound donor incision right flank. Plan: Continue Silver dressing changes to the right flank donor incision and to the compromised skin graft. The remaining sutures were removed today. He will continue the Levaquin. There is some compromise to the skin graft but has improved to 15% compromise. He would benefit from HBO treatments to help salvage the graft. He went to [facility] because it is closer to home to get his HBO. Because of the improvement in the healing of the graft, HBO was put on hold. Prealbumin from 06/21/18 was 21.1. Encourage nutritional supplementation with protein to help the healing process. Renewed his Dilaudid for pain, 8mg (20 tabs). Followup 2 weeks. Patient was acting depressed during his visit. He had made some comments to the nursing staff that he wanted to hurt himself. A Behavioral Therapist was called in see the patient.
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
--- NOTE | 2018-07-23 11:39 | CM.ED ---
Social Work Note Placed call to pt. Pt reports that he did follow-up with [facility] in [place] this morning and has an intake appointment on 07/25 at 1100. States he will have transportation. Reports that he is feeling better, and denies SI or HI at this time. Again encouraged pt to go to his local ED or contact crisis if he feels suicidal. Understanding expressed. Pt thanks this video game script writer for contacting. PLAN: Intake appointment with [facility] in [place]. BEN Meyer, MONICA
[2018-08-05 10:48] VITALS: BP 143/98; PULSE 74; RESP 18; TEMP 37.2; BMI 53.8
--- NOTE | 2018-08-05 17:42 | PCM.WC.PN ---
Type of Wound Date of Service: 08/05/18 Chief Complaint: Nonhealing hidradenitis ulcer lower anterior abdominal wall with skin grafting 06/20/18, with some compromise and nonhealing surgical wound right flank donor incision. History of Wound: Surgery 06/20/18 - Surgical preparation lower anterior abdominal wall with excisional debridement nonhealing hidradenitis ulcer with STSG reconstruction from the right flank (153 cm2). Wound care - Silver. Operative culture - negative. He was treated perioperatively with Cefadroxil. Pathology - Extensive ulceration and acute and chronic inflammmation and granulation tissue reaction. His Prealbumin on 06/21/18 was 21.1. Encourage nutritional supplementation with protein to help the healing process. He denies fever. His appetite is good. Postop, he developed an infection in the donor incision right flank and was hospitalized in [place]. The anterior portion of the flank incision was opened up and Silver dressing changes were started. He was discharged on Levaquin. It was noted during his recent hospitalization that there was some compromise on the skin graft. It was recommended that he get HBO treatments to salvage the compromised graft. Since he lives out of town, he went to [place] for evaluation for HBO. When he was seen, there was noted improvement in the healing of the graft and HBO was put on hold in [place]. Progress of Wound: Skin grafting 06/20/18 with some compromise and nonhealing surgical wound right flank donor incision. - Physical Exam Vital Signs Temp Pulse Resp BP 98.9 F 74 18 143/98 H 08/05/18 10:48 08/05/18 10:48 08/05/18 10:48 08/05/18 10:48 Skin: Ulcer/ Wound - The compromise of the skin graft in the lower anterior abdominal wall has improved. More skin graft adherence and healing is noted. The compromised graft has improved and decreased to <2%. Good granulation tissue noted in the ulcerated areas. Wound Measurements and Assessment WC - Nurse 1 - General Ulcer Measurement Start: 07/08/18 10:13 Freq: Status: Active Protocol: Activity Type Activity Date Activity User E-Sign Co-Sign Detail Recorded Client Recorded Date Recorded By Document 08/05/18 10:48 AN [id number] 08/05/18 11:09 AN 08/05/18 10:48 Wound Center Nurse 1 [Ulcer Assessment] #4 left abdominal fold -Current Size (cm) - Length 0.3 -Current Size (cm) - Width 1.0 -Current Size (cm) - Depth 0.1 -Total Square Cm 0.30 -Date of Last Picture (Recall this 08/05/18 field) -Photo Taken Yes -Classification - Thickness Full Thickness without Exposed Support Structure -Exudate Type Serous -Wound Margin Distinct, Outline Attached -Granulation Amt Large (67-100%) -Granulation Quality Red -Slough/Fibrin Yes -Necrosis Amt Small (1-33%) -Necrotic Tissue Type Adherent Slough -Structure Exposed None/Limited to Skin Breakdown -Texture (Pauline-wound Skin Appearance) Assessed -Moisture (Pauline-wound Skin Appearance Assessed ) -Color (Pauline-wound Skin Appearance) Assessed -Temperature (Pauline-wound Skin No Abnormality Appearance) (Pt Warm) -Tenderness on Palpation (Pauline-wound Yes Skin Appearance) -Ulcer Cleansing soap and water -Anesthetic Used 4% Lidocaine Solution #3 LOWER ABDOMEN RIGHT FLANK -Current Size (cm) - Length 1.2 -Current Size (cm) - Width 5.0 -Current Size (cm) - Depth 1.4 -Total Square Cm 6.00 -Date of Last Picture (Recall this 08/05/18 field) -Photo Taken Yes -Epithelialization None Present -Classification - Thickness Full Thickness with Exposed Support Structure -Wound Margin Fibrotic Scar, Thickened Scar -Granulation Amt Large (67-100%) -Granulation Quality Red -Slough/Fibrin Yes -Necrosis Amt Small (1-33%) -Necrotic Tissue Type Adherent Slough -Structure Exposed Fat Layer Exposed -Texture (Pauline-wound Skin Appearance) Assessed -Moisture (Pauline-wound Skin Appearance Assessed ) Maceration -Color (Pauline-wound Skin Appearance) Assessed -Temperature (Pauline-wound Skin No Abnormality Appearance) (Pt Warm) -Tenderness on Palpation (Pauline-wound Yes Skin Appearance) -Ulcer Cleansing soap and water -Foul Odor after Cleansing No -Anesthetic Used 4% Lidocaine Solution WC - Nurse 2 - General Ulcer CM Notes Start: 07/08/18 10:13 Freq: Status: Active Protocol: Activity Type Activity Date Activity User E-Sign Co-Sign Detail Recorded Client Recorded Date Recorded By Document 08/05/18 12:01 [email or web address] [id number] 08/05/18 12:05 [email or web address] 08/05/18 12:01 Wound Center Nurse 2 [Procedure/Treatment] #4 left abdominal fold -Time 12:02 -Correct Patient Yes -Correct Side, Site, Position Yes -Correct Procedure Yes -Procedure Performed Yes -Type of Procedure Debridement -Clinical Debridement Subcutaneous -Post Debridement Size (cm) - Length 0.3 -Post Debridement Size (cm) - Width 1.5 -Post Debridement Size (cm) - Depth 0.2 -Total Square Cm 0.45 -Wound/Ulcer Outcome Not Healed -Ulcer Cleansing Rinsed/ Irrigated with Saline -Foul Odor after Cleansing No -Bioengineered Tissue No -Bleeding Controlled with Pressure -Offloading No -Treatment Response Procedure Tolerated Well #3 LOWER ABDOMEN RIGHT FLANK -Time 12:03 -Correct Patient Yes -Correct Side, Site, Position Yes -Correct Procedure Yes -Procedure Performed Yes -Type of Procedure Debridement -Clinical Debridement Subcutaneous -Post Debridement Size (cm) - Length 2.5 -Post Debridement Size (cm) - Width 5.0 -Post Debridement Size (cm) - Depth 1.8 -Total Square Cm 12.50 -Wound/Ulcer Outcome Not Healed -Ulcer Cleansing Rinsed/ Irrigated with Saline -Foul Odor after Cleansing No -Bioengineered Tissue No -Bleeding Controlled with Pressure -Offloading No -Treatment Response Procedure Tolerated Well [See Physician Procedure note for Specifics] Pain Scale: 0-10 Numeric [Pain] -Is Patient Pain Free? Yes Debridement Note Post-Debridement Measurements/Treatment WC - Nurse 2 - General Ulcer CM Notes Start: 07/08/18 10:13 Freq: Status: Active Protocol: Activity Type Activity Date Activity User E-Sign Co-Sign Detail Recorded Client Recorded Date Recorded By Document 07/08/18 11:30 [id number] 07/08/18 11:35 Document 07/22/18 12:04 MW [id number] 07/22/18 12:19 MW Document 08/05/18 12:01 [id number] 08/05/18 12:05 07/08/18 07/22/18 08/05/18 11:30 12:04 12:01 Wound Center Nurse 2 #4 left abdominal fold -Time 12:02 -Correct Patient Yes -Correct Side, Site, Position Yes -Correct Procedure Yes -Procedure Performed Yes -Type of Procedure Debridement -Clinical Debridement Subcutaneous -Post Debridement Size (cm) - Length 0.3 -Post Debridement Size (cm) - Width 1.5 -Post Debridement Size (cm) - Depth 0.2 -Total Square Cm 0.45 -Wound/Ulcer Outcome Not Healed -Ulcer Cleansing Rinsed/ Irrigated with Saline -Foul Odor after Cleansing No -Bioengineered Tissue No -Bleeding Controlled with Pressure -Offloading No -Treatment Response Procedure Tolerated Well #3 LOWER ABDOMEN RIGHT FLANK -Time 11:31 12:07 12:03 -Correct Patient Yes Yes Yes -Correct Side, Site, Position Yes Yes Yes -Correct Procedure Yes Yes Yes -Procedure Performed Yes Yes Yes -Type of Procedure Debridement Debridement Debridement -Clinical Debridement Subcutaneous Subcutaneous Subcutaneous -Post Debridement Size (cm) - Length 2.5 2.8 2.5 -Post Debridement Size (cm) - Width 7.5 8.0 5.0 -Post Debridement Size (cm) - Depth 4.2 2.2 1.8 -Total Square Cm 18.75 22.40 12.50 -Wound/Ulcer Outcome Not Healed Not Healed Not Healed -Ulcer Cleansing Rinsed/ Rinsed/ Rinsed/ Irrigated with Irrigated with Irrigated with Saline Saline Saline -Foul Odor after Cleansing No No No -Bioengineered Tissue No No No -Bleeding Controlled with Pressure Pressure Pressure -Offloading No No No -Treatment Response Procedure Procedure Procedure Tolerated Well Tolerated Well Tolerated Well Pain Scale: 0-10 Numeric Is Patient Pain Free? Yes Yes Yes Wound debrided: #3 Right flank. Laterality: Right Wound Grade/Stage: 2. Type of Debridement: Excisional debridement Anesthesia Used: 4% Lidocaine Solution Depth: Down to and including healthy tissue, in the subcutaneous layer Percentage of wound debrided: 100 Instrument Used: 5mm curette Tissue Removed: subcutaneous tissue. Severity: Fat Layer Exposed Amount of bleeding with debridement: Mild Bleeding Controlled with: Pressure Patient tolerated procedure well - Additional Wound Wound debrided: #4 Lower anterior abdominal wall. Laterality: Not Applicable Wound Grade/Stage: 2. Type of Debridement: Excisional debridement Anesthesia Used: 4% Lidocaine Solution Depth: Down to and including healthy tissue, in the subcutaneous layer Percentage of wound debrided: 100 Instrument Used: 5mm curette Tissue Removed: subcutaneous tissue. Severity: Fat Layer Exposed Amount of bleeding with debridement: Mild Bleeding Controlled with: Pressure Patient tolerated procedure: Patient tolerated procedure well Assessment/Plan Assessment: 1. Nonhealing hidradenitis ulcer lower anterior abdominal wall, recent skin grafting on 06/20/18. 2. Early skin graft compromise lower anterior abdominal wall. 3. Hidradenitis lower anterior abdominal wall skin crease. 4. Hidradenitis bilateral inguinal areas extending onto pubic area. 5. Abdominal panniculus with panniculitis. 6. Abdominal wall skin crease intertrigo. 7. History of MRSA. 8. Obesity. 9. Family history of skin cancer. 10. Nonhealing surgical wound donor incision right flank. Plan: Continue Silver dressing changes to the right flank donor incision and to the compromised skin graft. He has finished the Levaquin. There is some compromise to the skin graft but has improved to <2% compromise. He was evaluated for HBO treatments to help salvage the graft. He went to [facility] because it is closer to home to get his HBO. Because of the improvement in the healing of the graft, HBO was put on hold. Prealbumin from 06/21/18 was 21.1. Encourage nutritional supplementation with protein to help the healing process. Renewed his Dilaudid for pain (20 tabs). Followup 3 weeks.
--- NOTE | 2018-08-06 17:42 | PN.PCM_ITS ---
Type of Wound Date of Service: 08/05/18 Chief Complaint: Nonhealing hidradenitis ulcer lower anterior abdominal wall with skin grafting 06/20/18, with some compromise and nonhealing surgical wound right flank donor incision. History of Wound: Surgery 06/20/18 - Surgical preparation lower anterior a bdominal wall with excisional debridement nonhealing hidradenitis ulcer with STSG reconstruction from the right flank (153 cm2). Wound care - Silver. Operative culture - negative. He was treated perioperatively with Cefadroxil. Pathology - Extensive ulceration and acute and chronic inflammmation and granulation tissue reaction. His Prealbumin on 06/21/18 was 21.1. Encourage nutritional supplementation with protein to help the healing process. He denies fever. His appetite is good. Postop, he developed an infection in the donor incision right flank and was hospitalized in [place]. The anterior portion of the flank incision was opened up and Silver dressing changes were started. He was discharged on Levaquin. It was noted during his recent hospitalization that there was some compromise on the skin graft. It was recommended that he get HBO treatments to salvage the compromised graft. Since he lives out of town, he went to [place] for evaluation for HBO. When he was seen, there was noted improvement in the healing of the graft and HBO was put on hold in [place]. Progress of Wound: Skin grafting 06/20/18 with some compromise and nonhealing surgical wound right flank donor incision. - Physical Exam Vital Signs Temp Pulse Resp BP 98.9 F 74 18 143/98 H 08/05/18 10:48 08/05/18 10:48 08/05/18 10:48 08/05/18 10:48 Skin: Ulcer/ Wound - The compromise of the skin graft in the lower anterior abdominal wall has improved. More skin graft adherence and healing is noted. The compromised graft has improved and decreased to <2%. Good granulation tissue noted in the ulcerated areas. Wound Measurements and Assessment WC - Nurse 1 - General Ulcer Measurement Start: 07/08/18 10:13 Freq: Status: Active Protocol: Activity Type Activity Date Activity User E-Sign Co-Sign Detail Recorded Client Recorded Date Recorded By Document 08/05/18 10:48 AN [id number] 08/05/18 11:09 AN 08/05/18 10:48 Wound Center Nurse 1 [Ulcer Assessment] #4 left abdominal fold -Current Size (cm) - Length 0.3 -Current Size (cm) - Width 1.0 -Current Size (cm) - Depth 0.1 -Total Square Cm 0.30 -Date of Last Picture (Recall this 08/05/18 field) -Photo Taken Yes -Classification - Thickness Full Thickness without Exposed Support Structure -Exudate Type Serous -Wound Margin Distinct, Outline Attached -Granulation Amt Large (67-100%) -Granulation Quality Red -Slough/Fibrin Yes -Necrosis Amt Small (1-33%) -Necrotic Tissue Type Adherent Slough -Structure Exposed None/Limited to Skin Breakdown -Texture (Pauline-wound Skin Appearance) Assessed -Moisture (Pauline-wound Skin Appearance Assessed ) -Color (Pauline-wound Skin Appearance) Assessed -Temperature (Pauline-wound Skin No Abnormality Appearance) (Pt Warm) -Tenderness on Palpation (Pauline-wound Yes Skin Appearance) -Ulcer Cleansing soap and water -Anesthetic Used 4% Lidocaine Solution #3 LOWER ABDOMEN RIGHT FLANK -Current Size (cm) - Length 1.2 -Current Size (cm) - Width 5.0 -Current Size (cm) - Depth 1.4 -Total Square Cm 6.00 -Date of Last Picture (Recall this 08/05/18 field) -Photo Taken Yes -Epithelialization None Present -Classification - Thickness Full Thickness with Exposed Support Structure -Wound Margin Fibrotic Scar, Thickened Scar -Granulation Amt Large (67-100%) -Granulation Quality Red -Slough/Fibrin Yes -Necrosis Amt Small (1-33%) -Necrotic Tissue Type Adherent Slough -Structure Exposed Fat Layer Exposed -Texture (Pauline-wound Skin Appearance) Assessed -Moisture (Pauline-wound Skin Appearance Assessed ) Maceration -Color (Pauline-wound Skin Appearance) Assessed -Temperature (Pauline-wound Skin No Abnormality Appearance) (Pt Warm) -Tenderness on Palpation (Pauline-wound Yes Skin Appearance) -Ulcer Cleansing soap and water -Foul Odor after Cleansing No -Anesthetic Used 4% Lidocaine Solution WC - Nurse 2 - General Ulcer CM Notes Start: 07/08/18 10:13 Freq: Status: Active Protocol: Activity Type Activity Date Activity User E-Sign Co-Sign Detail Recorded Client Recorded Date Recorded By Document 08/05/18 12:01 [email or web address] [id number] 08/05/18 12:05 [email or web address] 08/05/18 12:01 Wound Center Nurse 2 [Procedure/Treatment] #4 left abdominal fold -Time 12:02 -Correct Patient Yes -Correct Side, Site, Position Yes -Correct Procedure Yes -Procedure Performed Yes -Type of Procedure Debridement -Clinical Debridement Subcutaneous -Post Debridement Size (cm) - Length 0.3 -Post Debridement Size (cm) - Width 1.5 -Post Debridement Size (cm) - Depth 0.2 -Total Square Cm 0.45 -Wound/Ulcer Outcome Not Healed -Ulcer Cleansing Rinsed/ Irrigated with Saline -Foul Odor after Cleansing No -Bioengineered Tissue No -Bleeding Controlled with Pressure -Offloading No -Treatment Response Procedure Tolerated Well #3 LOWER ABDOMEN RIGHT FLANK -Time 12:03 -Correct Patient Yes -Correct Side, Site, Position Yes -Correct Procedure Yes -Procedure Performed Yes -Type of Procedure Debridement -Clinical Debridement Subcutaneous -Post Debridement Size (cm) - Length 2.5 -Post Debridement Size (cm) - Width 5.0 -Post Debridement Size (cm) - Depth 1.8 -Total Square Cm 12.50 -Wound/Ulcer Outcome Not Healed -Ulcer Cleansing Rinsed/ Irrigated with Saline -Foul Odor after Cleansing No -Bioengineered Tissue No -Bleeding Controlled with Pressure -Offloading No -Treatment Response Procedure Tolerated Well [See Physician Procedure note for Specifics] Pain Scale: 0-10 Numeric [Pain] -Is Patient Pain Free? Yes Debridement Note Post-Debridement Measurements/Treatment WC - Nurse 2 - General Ulcer CM Notes Start: 07/08/18 10:13 Freq: Status: Active Protocol: Activity Type Activity Date Activity User E-Sign Co-Sign Detail Recorded Client Recorded Date Recorded By Document 07/08/18 11:30 [id number] 07/08/18 11:35 JF Document 07/22/18 12:04 MW [id number] 07/22/18 12:19 MW Document 08/05/18 12:01 JF [id number] 08/05/18 12:05 07/08/18 07/22/18 08/05/18 11:30 12:04 12:01 Wound Center Nurse 2 #4 left abdominal fold -Time 12:02 -Correct Patient Yes -Correct Side, Site, Position Yes -Correct Procedure Yes -Procedure Performed Yes -Type of Procedure Debridement -Clinical Debridement Subcutaneous -Post Debridement Size (cm) - Length 0.3 -Post Debridement Size (cm) - Width 1.5 -Post Debridement Size (cm) - Depth 0.2 -Total Square Cm 0.45 -Wound/Ulcer Outcome Not Healed -Ulcer Cleansing Rinsed/ Irrigated with Saline -Foul Odor after Cleansing No -Bioengineered Tissue No -Bleeding Controlled with Pressure -Offloading No -Treatment Response Procedure Tolerated Well #3 LOWER ABDOMEN RIGHT FLANK -Time 11:31 12:07 12:03 -Correct Patient Yes Yes Yes -Correct Side, Site, Position Yes Yes Yes -Correct Procedure Yes Yes Yes -Procedure Performed Yes Yes Yes -Type of Procedure Debridement Debridement Debridement -Clinical Debridement Subcutaneous Subcutaneous Subcutaneous -Post Debridement Size (cm) - Length 2.5 2.8 2.5 -Post Debridement Size (cm) - Width 7.5 8.0 5.0 -Post Debridement Size (cm) - Depth 4.2 2.2 1.8 -Total Square Cm 18.75 22.40 12.50 -Wound/Ulcer Outcome Not Healed Not Healed Not Healed -Ulcer Cleansing Rinsed/ Rinsed/ Rinsed/ Irrigated with Irrigated with Irrigated with Saline Saline Saline -Foul Odor after Cleansing No No No -Bioengineered Tissue No No No -Bleeding Controlled with Pressure Pressure Pressure -Offloading No No No -Treatment Response Procedure Procedure Procedure Tolerated Well Tolerated Well Tolerated Well Pain Scale: 0-10 Numeric Is Patient Pain Free? Yes Yes Yes Wound debrided: #3 Right flank. Laterality: Right Wound Grade/Stage: 2. Type of Debridement: Excisional debridement Anesthesia Used: 4% Lidocaine Solution Depth: Down to and including healthy tissue, in the subcutaneous layer Percentage of wound debrided: 100 Instrument Used: 5mm curette Tissue Removed: subcutaneous tissue. Severity: Fat Layer Exposed Amount of bleeding with debridement: Mild Bleeding Controlled with: Pressure Patient tolerated procedure well - Additional Wound Wound debrided: #4 Lower anterior abdominal wall. Laterality: Not Applicable Wound Grade/Stage: 2. Type of Debridement: Excisional debridement Anesthesia Used: 4% Lidocaine Solution Depth: Down to and including healthy tissue, in the subcutaneous layer Percentage of wound debrided: 100 Instrument Used: 5mm curette Tissue Removed: subcutaneous tissue. Severity: Fat Layer Exposed Amount of bleeding with debridement: Mild Bleeding Controlled with: Pressure Patient tolerated procedure: Patient tolerated procedure well Assessment/Plan Assessment: 1. Nonhealing hidradenitis ulcer lower anterior abdominal wall, recent skin grafting on 06/20/18. 2. Early skin graft compromise lower anterior abdominal wall. 3. Hidradenitis lower anterior abdominal wall skin crease. 4. Hidradenitis bilateral inguinal areas extending onto pubic area. 5. Abdominal panniculus with panniculitis. 6. Abdominal wall skin crease intertrigo. 7. History of MRSA. 8. Obesity. 9. Family history of skin cancer. 10. Nonhealing surgical wound donor incision right flank. Plan: Continue Silver dressing changes to the right flank donor incision and to the compromised skin graft. He has finished the Levaquin. There is some compromise to the skin graft but has improved to <2% compromise. He was evaluated for HBO treatments to help salvage the graft. He went to [facility] because it is closer to home to get his HBO. Because of the improvement in the healing of the graft, HBO was put on hold. Prealbumin from 06/21/18 was 21.1. Encourage nutritional supplementation with protein to help the healing process. Renewed his Dilaudid for pain (20 tabs). Followup 3 weeks.
== END 2018-08-06 23:59 ==
LOC: WC 10:45
PROVIDERS: Visit Provider Surgery
DX: L73.2 Hidradenitis suppurativa (principal); Z86.14 Personal history of Methicillin resistant Staphylococcus aureus infection; Y83.8 Other surgical procedures as the cause of abnormal reaction of the patient, or of later complication, without mention of misadventure at the time of the procedure; T86.828 Other complications of skin graft (allograft) (autograft); M79.3 Panniculitis, unspecified; L30.4 Erythema intertrigo; E66.9 Obesity, unspecified; Z68.43 Body mass index [BMI] 50.0-59.9, adult; Z71.3 Dietary counseling and surveillance; L98.492 Non-pressure chronic ulcer of skin of other sites with fat layer exposed
CPT/HCPCS: 11042; 11045

== ENCOUNTER 2018-08-26 10:31 | Outpatient (RCR) | payer MEDICARE, MEDICAID, SELFPAY ==
[2018-08-07 01:23] VITALS: BP 143/98; PULSE 74; RESP 18; TEMP 37.2
[2018-08-26 11:26] VITALS: BP 185/93; PULSE 84; RESP 20; TEMP 36.2; BMI 53.8
--- NOTE | 2018-08-26 19:58 | PN.PCM_ITS ---
Type of Wound Date of Service: 08/26/18 Chief Complaint: Nonhealing hidradenitis ulcer lower anterior abdominal wall with skin grafting 06/20/18, with some compromise and nonhealing surgical wound right flank donor incision. History of Wound: Surgery 06/20/18 - Surgical preparation lower anterior a bdominal wall with excisional debridement nonhealing hidradenitis ulcer with STSG reconstruction from the right flank (153 cm2). Wound care - Silver. Operative culture - negative. He was treated perioperatively with Cefadroxil. Pathology - Extensive ulceration and acute and chronic inflammmation and granulation tissue reaction. His Prealbumin on 06/21/18 was 21.1. Encourage nutritional supplementation with protein to help the healing process. He denies fever. His appetite is good. Postop, he developed an infection in the donor incision right flank and was hospitalized in [place]. The anterior portion of the flank incision was opened up and Silver dressing changes were started. He was discharged on Levaquin. It was noted during his recent hospitalization that there was some compromise on the skin graft. It was recommended that he get HBO treatments to salvage the compromised graft. Since he lives out of town, he went to [place] for evaluation for HBO. When he was seen, there was noted improvement in the healing of the graft and HBO was put on hold in [place]. The skin graft has since healed. Today the patient denies fever. His appetite is ok. Progress of Wound: Skin graft lower anterior abdominal wall has healed and the right flank donor wound has improved. - Physical Exam Vital Signs Temp Pulse Resp BP 97.1 F L 84 20 H 185/93 H 08/26/18 11:26 08/26/18 11:26 08/26/18 11:26 08/26/18 11:26 Wound Measurements and Assessment WC - Nurse 1 - General Ulcer Measurement Start: 08/26/18 11:26 Freq: Status: Active Protocol: Activity Type Activity Date Activity User E-Sign Co-Sign Detail Recorded Client Recorded Date Recorded By Document 08/26/18 11:26 DL [id number] 08/26/18 11:31 DL 08/26/18 11:26 Wound Center Nurse 1 [Ulcer Assessment] #3 LOWER ABDOMEN RIGHT FLANK -Current Size (cm) - Length 0.1 -Current Size (cm) - Width 0.6 -Current Size (cm) - Depth 0.1 -Total Square Cm 0.06 -Photo Taken No -Exudate Amt None Present -Wound Margin Flat & Intact -Granulation Amt Small (1-33%) -Granulation Quality Red -Necrosis Amt None Present (0 %) -Structure Exposed N/A -Texture (Pauline-wound Skin Appearance) Scarring -Moisture (Pauline-wound Skin Appearance Dry/Scaly ) -Color (Pauline-wound Skin Appearance) No Abnormality -Temperature (Pauline-wound Skin No Abnormality Appearance) (Pt Warm) -Tenderness on Palpation (Pauline-wound No Skin Appearance) -Ulcer Cleansing Wound Cleanser -Foul Odor after Cleansing No -Anesthetic Used 4% Lidocaine Solution - Nurse 2 - General Ulcer CM Notes Start: 08/26/18 11:26 Freq: Status: Active Protocol: Activity Type Activity Date Activity User E-Sign Co-Sign Detail Recorded Client Recorded Date Recorded By Document 08/26/18 12:24 [id number] 08/26/18 12:31 08/26/18 12:24 Wound Center Nurse 2 [Procedure/Treatment] -Time 12:25 -Correct Patient Yes -Correct Side, Site, Position Yes -Correct Procedure Yes -Procedure Performed Yes -Type of Procedure Debridement -Clinical Debridement Subcutaneous -Post Debridement Size (cm) - Length 0.5 -Post Debridement Size (cm) - Width 3.0 -Post Debridement Size (cm) - Depth 0.5 -Total Square Cm 1.50 -Wound/Ulcer Outcome Not Healed -Ulcer Cleansing Rinsed/ Irrigated with Saline -Foul Odor after Cleansing No -Bioengineered Tissue No -Bleeding Controlled with Pressure -Offloading No -Treatment Response Procedure Tolerated Well [See Physician Procedure note for Specifics] Pain Scale: 0-10 Numeric [Pain] -Is Patient Pain Free? Yes Debridement Note Post-Debridement Measurements/Treatment - Nurse 2 - General Ulcer CM Notes Start: 08/26/18 11:26 Freq: Status: Active Protocol: Activity Type Activity Date Activity User E-Sign Co-Sign Detail Recorded Client Recorded Date Recorded By Document 08/26/18 12:24 [id number] 08/26/18 12:31 08/26/18 12:24 Wound Center Nurse 2 #3 LOWER ABDOMEN RIGHT FLANK -Time 12:25 -Correct Patient Yes -Correct Side, Site, Position Yes -Correct Procedure Yes -Procedure Performed Yes -Type of Procedure Debridement -Clinical Debridement Subcutaneous -Post Debridement Size (cm) - Length 0.5 -Post Debridement Size (cm) - Width 3.0 -Post Debridement Size (cm) - Depth 0.5 -Total Square Cm 1.50 -Wound/Ulcer Outcome Not Healed -Ulcer Cleansing Rinsed/ Irrigated with Saline -Foul Odor after Cleansing No -Bioengineered Tissue No -Bleeding Controlled with Pressure -Offloading No -Treatment Response Procedure Tolerated Well Pain Scale: 0-10 Numeric Is Patient Pain Free? Yes Wound debrided: #3 Right flank. Laterality: Right Wound Grade/Stage: 2. Type of Debridement: Excisional debridement Anesthesia Used: 4% Lidocaine Solution Depth: Down to and including healthy tissue, in the subcutaneous layer Percentage of wound debrided: 100 Instrument Used: 5mm curette Tissue Removed: subcutaneous tissue. Severity: Fat Layer Exposed Amount of bleeding with debridement: Mild Bleeding Controlled with: Pressure Patient tolerated procedure well - Additional Wound Wound debrided: #4 Lower anterior abdominal wall. Laterality: Not Applicable Wound Grade/Stage: 2. Patient tolerated procedure: - - No debridement was done today as the com promised skin graft has healed. Assessment/Plan Assessment: 1. Hidradenitis ulcer lower anterior abdominal wall, recent skin grafting on 06/20/18, healed. 2. Early skin graft compromise lower anterior abdominal wall resolved. 3. Hidradenitis lower anterior abdominal wall skin crease. 4. Hidradenitis bilateral inguinal areas extending onto pubic area. 5. Abdominal panniculus with panniculitis. 6. Abdominal wall skin crease intertrigo. 7. History of MRSA. 8. Obesity. 9. Family history of skin cancer. 10. Nonhealing surgical wound donor incision right flank. Plan: Continue Silver dressing changes to the right flank donor wound. It continues to improve and measure smaller. The drainage has decreased so can dec rease the Silver dressing changes to 3 times per week instead of daily. The compromised skin graft lower anterior abdominal wall has healed. He will massage the skin graft daily with skin lotion to help soften up the scar. He has finished the Levaquin. Prealbumin from 06/21/18 was 21.1. Encourage nutritional supplementation with protein to help the healing process. Followup 3 weeks.
== END 2018-09-06 23:59 ==
LOC: WC 10:31
PROVIDERS: Visit Provider Surgery
DX: L73.2 Hidradenitis suppurativa (principal); M79.3 Panniculitis, unspecified; E66.9 Obesity, unspecified; Z68.43 Body mass index [BMI] 50.0-59.9, adult; Z71.3 Dietary counseling and surveillance; L98.492 Non-pressure chronic ulcer of skin of other sites with fat layer exposed; L30.4 Erythema intertrigo; Z86.14 Personal history of Methicillin resistant Staphylococcus aureus infection; T86.828 Other complications of skin graft (allograft) (autograft); Y83.8 Other surgical procedures as the cause of abnormal reaction of the patient, or of later complication, without mention of misadventure at the time of the procedure
CPT/HCPCS: 11042

== ENCOUNTER 2018-09-16 10:03 | Outpatient (RCR) | payer MEDICARE, MEDICAID, SELFPAY ==
[2018-09-07 00:55] VITALS: BP 185/93; PULSE 84; RESP 20; TEMP 36.2
[2018-09-16 10:47] VITALS: BP 152/86; PULSE 90; RESP 22; TEMP 36.9; BMI 53.8
--- NOTE | 2018-09-16 22:29 | PN.PCM_ITS ---
Type of Wound Date of Service: 09/16/18 Chief Complaint: Nonhealing hidradenitis ulcer lower anterior abdominal wall with skin grafting 06/20/18, with some compromise and nonhealing surgical wound right flank donor incision. History of Wound: Surgery 06/20/18 - Surgical preparation lower anterior a bdominal wall with excisional debridement nonhealing hidradenitis ulcer with STSG reconstruction from the right flank (153 cm2). Wound care - Silver. Operative culture - negative. He was treated perioperatively with Cefadroxil. Pathology - Extensive ulceration and acute and chronic inflammmation and granulation tissue reaction. His Prealbumin on 06/21/18 was 21.1. Encourage nutritional supplementation with protein to help the healing process. He denies fever. His appetite is good. Postop, he developed an infection in the donor incision right flank and was hospitalized in [place]. The anterior portion of the flank incision was opened up and Silver dressing changes were started. He was discharged on Levaquin. It was noted during his recent hospitalization that there was some compromise on the skin graft. It was recommended that he get HBO treatments to salvage the compromised graft. Since he lives out of town, he went to [place] for evaluation for HBO. When he was seen, there was noted improvement in the healing of the graft and HBO was put on hold in [place]. The skin graft has since healed. Today the patient denies fever. His appetite is ok. Progress of Wound: Healed. - Physical Exam Vital Signs Temp Pulse Resp BP 98.5 F 90 22 H 152/86 H 09/16/18 10:47 09/16/18 10:47 09/16/18 10:47 09/16/18 10:47 General: Alert, Oriented x3 HEENT: PERRLA, EOMI Oral: Moist Mucosa Neck: Supple Lungs: Clear to auscultation Cardiovascular: Regular rate, Regular Rhythm Abdomen: Soft, Non-Distended Skin: - - graft is healed. donor site wound is healed. Wound Measurements and Assessment WC - Nurse 1 - General Ulcer Measurement Start: 09/16/18 10:47 Freq: Status: Active Protocol: Activity Type Activity Date Activity User E-Sign Co-Sign Detail Recorded Client Recorded Date Recorded By Document 09/16/18 10:47 DL [id number] 09/16/18 10:53 DL 09/16/18 10:47 Wound Center Nurse 1 [Ulcer Assessment] #3 LOWER ABDOMEN RIGHT FLANK -Current Size (cm) - Length 0 -Current Size (cm) - Width 0 -Current Size (cm) - Depth 0 -Total Square Cm 0 -Photo Taken Yes -Granulation Amt Large (67-100%) -Granulation Quality [place] -Necrosis Amt None Present (0 %) -Structure Exposed N/A -Texture (Pauline-wound Skin Appearance) Scarring -Moisture (Pauline-wound Skin Appearance Dry/Scaly ) -Color (Pauline-wound Skin Appearance) No Abnormality -Temperature (Pauline-wound Skin No Abnormality Appearance) (Pt Warm) -Tenderness on Palpation (Pauline-wound No Skin Appearance) -Ulcer Cleansing Rinsed/ Irrigated with Saline -Foul Odor after Cleansing No WC - Nurse 2 - General Ulcer CM Notes Start: 09/16/18 10:47 Freq: Status: Active Protocol: Activity Type Activity Date Activity User E-Sign Co-Sign Detail Recorded Client Recorded Date Recorded By Document 09/16/18 11:37 [id number] 09/16/18 11:38 09/16/18 11:37 Wound Center Nurse 2 [Procedure/Treatment] -Correct Patient No -Correct Side, Site, Position No -Correct Procedure No -Procedure Performed No -Post Debridement Size (cm) - Length 0 -Post Debridement Size (cm) - Width 0 -Post Debridement Size (cm) - Depth 0 -Total Square Cm 0 -Wound/Ulcer Outcome Healed- Epithelialized [See Physician Procedure note for Specifics] Pain Scale: 0-10 Numeric [Pain] -Is Patient Pain Free? Yes Neurological: Cranial nerves II-XII grossly intact Psych/Mental Status: Normal Affect, Appropriate Debridement Note Post-Debridement Measurements/Treatment WC - Nurse 2 - General Ulcer CM Notes Start: 09/16/18 10:47 Freq: Status: Active Protocol: Activity Type Activity Date Activity User E-Sign Co-Sign Detail Recorded Client Recorded Date Recorded By Document 09/16/18 11:37 [id number] 09/16/18 11:38 09/16/18 11:37 Wound Center Nurse 2 #3 LOWER ABDOMEN RIGHT FLANK -Correct Patient No -Correct Side, Site, Position No -Correct Procedure No -Procedure Performed No -Post Debridement Size (cm) - Length 0 -Post Debridement Size (cm) - Width 0 -Post Debridement Size (cm) - Depth 0 -Total Square Cm 0 -Wound/Ulcer Outcome Healed- Epithelialized Pain Scale: 0-10 Numeric Is Patient Pain Free? Yes Wound debrided: #3 Right flank area. Laterality: Right Wound Grade/Stage: 2. No debridement was completed today - the wound has healed. Assessment/Plan Assessment: 1. Nonhealing hidradenitis ulcer lower anterior abdominal wall, recent skin grafting on 06/20/18. 2. Early skin graft compromise lower anterior abdominal wall. 3. Hidradenitis lower anterior abdominal wall skin crease. 4. Hidradenitis bilateral inguinal areas extending onto pubic area. 5. Abdominal panniculus with panniculitis. 6. Abdominal wall skin crease intertrigo. 7. History of MRSA. 8. Obesity. 9. Family history of skin cancer. 10. Nonhealing surgical wound donor incision right flank. Plan: The right flank donor wound has healed. The compromised skin graft lower anterior abdominal wall remains healed. He will massage the skin graft daily with skin lotion to help soften up the scar. Followup on an as needed basis.
== END 2018-10-06 23:59 ==
LOC: WC 10:03
PROVIDERS: Visit Provider Surgery
DX: Z09 Encounter for follow-up examination after completed treatment for conditions other than malignant neoplasm (principal); L73.2 Hidradenitis suppurativa; Z86.14 Personal history of Methicillin resistant Staphylococcus aureus infection; L30.4 Erythema intertrigo; M79.3 Panniculitis, unspecified; E66.9 Obesity, unspecified; Z68.43 Body mass index [BMI] 50.0-59.9, adult; Z71.3 Dietary counseling and surveillance; Z80.8 Family history of malignant neoplasm of other organs or systems
CPT/HCPCS: 99212; G0463

== ENCOUNTER 2019-12-22 09:45 | Outpatient (RCR) | payer MEDICARE, MEDICAID, SELFPAY ==
[2019-12-22 10:06] VITALS: BP 148/110; PULSE 93; RESP 16; TEMP 36.5; BMI 50.1
--- NOTE | 2019-12-22 13:05 | HP.PCM_ITS ---
History of Present Illness Date of Service: 12/22/19 Chief Complaint: Facial hidradenitis and bilateral inguinal/upper medial thigh hidradenitis. History of Wound: Comes in today for further evaluation of recent flare up of hidradenitis on his face involving his medial cheeks and chin area. He denies drainage. Does have some discomfort. He also has questions about his longstanding hidradenitis bilateral inguinal and upper medial thigh areas. He denies fever. He denies trauma. He presents today for further evaluation and treatment. 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 lower anterior abdominal wall and pubic area Malnutrition of moderate degree (Chronic) E44.0 Morbid obesity with body mass index (BMI) of 40.0 to 44.9 in adult (Chronic) E66.01 his BMI is 44.5 from recent weight loss from 414 to 335 lbs Panniculitis (Chronic) M79.3 abdominal panniculitis with hidradenitis Abdominal panniculus, symptomatic (Chronic) E65 abdominal panniculus with hidradenitis Morbid obesity with BMI of 50.0-59.9, adult (Chronic) E66.01 Bipolar disorder (Chronic) GERD (gastroesophageal reflux disease) (Chronic) Hypertension (Chronic) Asthma (Chronic) Hidradenitis (Chronic) L73.2 hidradenitis abdominal wall skin crease Family history of skin cancer (Chronic) Z80.8 Chronic skin ulcer (Chronic) nonhealing hidradenitis ulcer right occipital/parietal scalp area Gynecomastia, male (Chronic) N62 bilateral gynecomastia Intertrigo (Chronic) L30.4 abdominal wall skin crease intertrigo Past Medical History: PAST MEDICAL HISTORY. Anemia. Asthma. Back pain. Bone fracture. Depression. Gastrointestinal problem. Hidradenitis. Hypertension Surgical History: - - Hidradenitsi surgery, multiple procedures. Colonoscopy. Fracture of right ankle. Allergies/Adverse Reactions: Allergies morphine Allergy (Verified 06/13/18 11:22) Rash Sulfa (Sulfonamide Antibiotics) Allergy (Verified 06/13/18 11:22) Other GOT FEVER Home Medications: Ambulatory Orders Medication Instructions Recorded Trazodone HCl 50 mg PO QHS PRN 07/20/14 doxycycline hyclate 100 mg capsule 100 mg PO BID #60 cap 12/23/19 - Family History Maternal Family History: Family History (Last Updated 03/14/18 @ 16:38 by Marga Michel) Mother Hypertension Kidney disease Diabetes Cancer of kidney Father Hypertension Uncle Colon cancer Diabetes, Hypertension Paternal Family History: Family History (Last Updated 03/14/18 @ 16:38 by Marga Michel) Mother Hypertension Kidney disease Diabetes Cancer of kidney Father Hypertension Uncle Colon cancer Diabetes, Hypertension Lives: With Family Smoking Status: Never smoker Alcohol: None Drugs: None Review of Systems REVIEW OF SYSTEMS. General - Denies fever and weight loss. Has fatigue. Eyes - Denies cataracts and glaucoma. ENT - Denies nasal congestion and sore throat. Endocrine - Denies excessive thirst and urination. Has cold intolerance and heat intolerance. Skin - Denies skin cancer. Has extensive hidradenitis involving scalp, bilateral medial arms and axillary and chest wall areas, bilateral breasts, bilateral inguinal areas extending onto pubic area, lower anterior abdominal wall skin crease, and bilateral perianal area and facial area. Has family history of skin cancer. Musculoskeletal - Denies joint pain, joint stiffness, weakness of muscles and joints, and arthritis. Has back pain. Neuro - Denies headaches. Cardiovascular - Denies chest pain and shortness of breath with exertion. Has fatigue. Psych - Denies anxiety. Has depression. Respiratory - Denies chronic cough and shortness of breath. Has asthma. Gastrointestinal - Denies nausea, vomiting, diarrhea. Has constipation. Hematologic - Denies abnormal bruising and bleeding. Has anemia. Genitourinary - Denies hematuria and urinary frequency. - Physical Exam PHYSICAL EXAMINATION General - Alert and Oriented HEENT - PERRL. EOMI. Throat is clear. No suspicious lesions noted. had extensive area of hidradenitis involving the occipital scalp extending onto parietal and temporal scalp areas that has been excised and skin grafted. Has facial hidradenitis involving medial cheeks and chin area. Some induration. Mild tenderness. Minimal redness. No fluctuance. No purulent drainage. Neck - Supple and nontender. No cervical adenopathy. No suspicious lesions noted. Breasts - has healed incisions from previous bilateral mastectomies for his extensive breast hidradenitis. Lungs - Clear to auscultation. Heart - Regular rate and rhythm. Abdomen - Soft and nondistended. Has healed incision from previous excision hidradenitis. Has stable hidradenitis scarring in bilateral inguinal areas extending onto upper medial thigh areas and pubic area. Induration present. Nontender. No acute abscess seen. No inguinal adenopathy. Measures 18 cm bilaterally. Extremities - FROM. No axillary adenopathy. Radial pulses are palpable. In his medial arms bilaterally are areas of stable hidradenitis measuring 18 x 14 cm for each area. Extends into the axilla. Induration present. Nontender. No acute abscess seen. Neuro - CN II-XII grossly intact. Psych - Normal mood and affect. Vital Signs Temp Pulse Resp BP 97.7 F L 93 16 148/110 H 12/22/19 10:06 12/22/19 10:06 12/22/19 10:06 12/22/19 10:06 Wound Measurements and Assessment - Nurse 1 - General Ulcer Measurement Start: 12/22/19 10:03 Freq: Status: Discharge Protocol: Activity Type Activity Date Activity User E-Sign Co-Sign Detail Recorded Client Recorded Date Recorded By Edit Status 12/22/19 11:25 BKG DAEMON Active=>Discharge [place] [id number] 12/22/19 11:25 BKG DAEMON - Nurse 2 - General Ulcer CM Notes Start: 12/22/19 10:03 Freq: Status: Discharge Protocol: Activity Type Activity Date Activity User E-Sign Co-Sign Detail Recorded Client Recorded Date Recorded By Document 12/22/19 10:39 [id number] 12/22/19 10:40 Edit Status 12/22/19 11:25 BKG DAEMON Active=>Discharge [facility] 12/22/19 11:25 BKG DAEMON 12/22/19 10:39 Pain Scale: 0-10 Numeric [Pain] -Is Patient Pain Free? Yes - Nurse 3 - General Ulcer D/C NN Start: 12/22/19 10:03 Freq: Status: Discharge Protocol: Activity Type Activity Date Activity User E-Sign Co-Sign Detail Recorded Client Recorded Date Recorded By Document 12/22/19 10:42 [email or web address] [id number] 12/22/19 10:42 Edit Status 12/22/19 11:25 BKG DAEMON Active=>Discharge [facility] 12/22/19 11:25 BKG DAEMON 12/22/19 10:42 -Is Patient Pain Free? Yes WC - Visit Discharge [Visit Discharge Information] -Discharge Condition Stable -Ambulatory Status Ambulatory -Transportation Private Auto -Medication Reconcilliation completed Yes & provided to patient/care provider -Clinical Summary of Care Provided Yes Debridement Note Post-Debridement Measurements/Treatment WC - Nurse 2 - General Ulcer CM Notes Start: 12/22/19 10:03 Freq: Status: Discharge Protocol: Activity Type Activity Date Activity User E-Sign Co-Sign Detail Recorded Client Recorded Date Recorded By Document 12/22/19 10:39 [id number] 12/22/19 10:40 12/22/19 10:39 Pain Scale: 0-10 Numeric Is Patient Pain Free? Yes - Nurse 3 - General Ulcer D/C NN Start: 12/22/19 10:03 Freq: Status: Discharge Protocol: Activity Type Activity Date Activity User E-Sign Co-Sign Detail Recorded Client Recorded Date Recorded By Document 12/22/19 10:42 [id number] 12/22/19 10:42 12/22/19 10:42 Is Patient Pain Free? Yes WC - Visit Discharge Discharge Condition Stable Ambulatory Status Ambulatory Transportation Private Auto Medication Reconcilliation completed & Yes provided to patient/care provider Clinical Summary of Care Provided Yes Assessment/Plan Assessment: 1. Facial hidradenitis involving medial cheeks and chin area. 2. Hidradenitis bilateral inguinal areas extending onto upper medial thigh areas and pubic area. 3. History of MRSA. 4. Obesity. 5. Family history of skin cancer. Plan: Patient would like to proceed with surgical excision hidradenitis in his inguinal and upper medial thigh areas and pubic area next. Would do separately. He states the left side bothers him more at this time. Will leave the wound open and proceed with wound care with the VAC. Tissue will be sent to Pathology for analysis to rule out carcinoma and to Microbiology for culture. A positive culture will necessitate antibiotic therapy. Will plan on the surgery in 3 months or so. He is busy right now working on his mother's estate who has recently . If there is a plateau in the healing process, can proceed with delayed closure with skin grafting. He also has issues with facial hidradenitis at this time. He has not seen a Power System Engineer yet for this. It appears stable at this time. Before proceeding with surgery, I would like to see if he responds to immunologic therapy for his facial hidradenitis such as Humira. To help with intermittent flare ups of his hidradenitis, will send script for Doxycycline that he will have available for flare ups until surgery is done. Surgery will be done under general anesthesia with a surgical observation overnight stay in the hospital. The patient was informed of the risks and complications of the procedure including alternatives to surgery. These were discussed with the patient personally. The patient voices understanding and wishes to proceed. Will also write a letter to his local gym that he had been exercising at. With his immune compromised status combined with the presence of COVID-19, my recommendation is to refrain from going to the gym at this time. Since his contract extends for multiple years, I will write a letter for medical exemption. He will followup on an as needed basis. Once his affairs are in order regarding his mother's estate, he will call when he is harvey dy to proceed with the inguinal and upper medial thigh and pubic area hidradenitis surgery. Office Visits / Consults: [id number] OV L3 Est - ICD-10 - L73.2, Z86.14, E66.01, Z80.8
== END 2019-12-22 11:25 | disposition home or self-care (01) ==
LOC: WC 09:45
PROVIDERS: Visit Provider Surgery
DX: L73.2 Hidradenitis suppurativa (principal); E66.01 Morbid (severe) obesity due to excess calories; K21.9 Gastro-esophageal reflux disease without esophagitis; I10 Essential (primary) hypertension; J45.909 Unspecified asthma, uncomplicated; F41.9 Anxiety disorder, unspecified; Z86.14 Personal history of Methicillin resistant Staphylococcus aureus infection; Z68.43 Body mass index [BMI] 50.0-59.9, adult
CPT/HCPCS: 99212; G0463

== ENCOUNTER 2020-12-30 13:00 | Outpatient (RCR) | payer MEDICARE, MEDICAID, SELFPAY ==
[2020-12-16 13:22] VITALS: BP 167/98; PULSE 77; TEMP 36.1
--- NOTE | 2020-12-16 17:06 | PCM.WC.HP ---
History of Present Illness Date of Service: 12/16/20 Chief Complaint: Nonhealing abdominal ulcer status post hidradenitis surgical removal History of Wound: This is a 35-year-old white male who presents to the wound healing center today for a nonhealing abdominal ulcer. He has a past medical history as listed above significant for hidradenitis with multiple surgical resections, bipolar disorder, and morbid obesity. The patient states that the ulceration occurred approximately 4 weeks ago. He has been utilizing gauze and bandages for wound care. He states that this is at the same site where he had his hidradenitis excised by Dr. Weinstein in the past. He denies any systemic or localized signs of infection at this time. He denies any other acute concerns. Past medical, family, and social history reviewed and not pertinent to the current visit and all other systems reviewed and negative with exception of those listed above. [facility], LAT[facility] Medical History Anemia Asthma Back pain Bone fracture Depression (emotion) Gastrointestinal problem Hidradenitis Hypertension Seasonal allergies Home Medications Prozac 12/16/20 [History Last Taken Unknown] loratadine-pseudoephedrine [Loratadine-D] 1 tab PO Q12H 12/16/20 [History Last Taken Unknown] Allergy/AdvReac Type Severity Reaction Status Date / Time morphine Allergy Rash Verified 06/13/18 11:22 Sulfa (Sulfonamide Allergy Other Verified 06/13/18 11:22 Antibiotics) Family History (Updated 03/14/18 @ 16:38 by Marga Michel) Mother Hypertension Kidney disease Diabetes Cancer of kidney Father Hypertension Uncle Colon cancer Surgical History (Updated 09/16/18 @ 22:[address] Cosme Weinstein MD) Hidradenitis History of colonoscopy History of fracture of right ankle Social History (Updated 05/13/18 @ 00:[address] Cosme Weinstein MD) Smoking Status: Never smoker alcohol intake: never substance use type: does not use additional social history: DOES USE ASPIRIN DOES USE IBUPROFEN ROS ROS Narrative negative x 10 systems with the exception of those listed above Constitutional Constitutional: Reports systems reviewed and no addt'l complaints, except as documented Eyes Eyes: Reports systems reviewed and no addt'l complaints, except as documented ENT HEENT: Reports systems reviewed and no addt'l complaints, except as documented Cardiovascular Cardiovascular: Reports systems reviewed and no addt'l complaints, except as documented Respiratory/Chest Respiratory/Chest: Reports systems reviewed and no addt'l complaints, except as documented Gastrointestinal Gastrointestinal: Reports systems reviewed and no addt'l complaints, except as documented Genitourinary Genitourinary: Reports systems reviewed and no addt'l complaints, except as documented Musculoskeletal Musculoskeletal: Reports systems reviewed and no addt'l complaints, except as documented Integumentary Integumentary: Reports systems reviewed and no addt'l complaints, except as documented Neurologic Neurologic: Reports systems reviewed and no addt'l complaints, except as documented Psychiatric Psychiatric: Reports systems reviewed and no addt'l complaints, except as documented Endocrine Endocrinology: Reports systems reviewed and no addt'l complaints, except as documented Hematologic/Lymphatic Hematologic/Lymphatic: Reports systems reviewed and no addt'l complaints, except as documented Allergic/Immunologic Allergic/Immunologic: Reports systems reviewed and no addt'l complaints, except as documented Vital Signs Vital Signs Vital Signs: 12/16/20 13:22 Temperature 97.0 F L Temperature Source Temporal Pulse Rate 77 Blood Pressure 167/98 H Blood Pressure Mean 121 Physical Exam Const alert, oriented x3, no apparent distress, healthy appearing and well nourished General Appearance: cooperative Exam Limitations: no limitations Nutritional Appearance: obese HEENT normocephalic Head and Scalp: normal to inspection Mouth: oral and palatal mucosa normal Eyes General Eye: normal appearance of both eyes Resp normal respiratory effort, normal air movement and no use of accessory muscles Effort and Inspection: able to speak in complete sentences Auscultation: clear to auscultation bilaterally Cardio regular rate, regular rhythm, S1 normal heart sound, S2 normal heart sound, no murmurs and peripheral pulses 2+ throughout Palpation: normal PMI Rate: regular rate Heart Sounds: S1 normal and S2 normal GI normal to inspection, nondistended, normoactive bowel sounds, soft to palpation, non-tender and non-distended Palpation: soft Extremity normal to inspection and full ROM General Extremity: normal exam except as noted Skin Skin Narrative: Abdominal ulceration lower abdomen midline where prior incision from his hidradenitis surgical excision, slough and devitalized tissue present, no signs of obvious infection at this time Neuro oriented x3 and moves all extremities Sensorium / Orientation: awake, alert, oriented to person, oriented to place and oriented to time Psych mental status grossly normal, thought process normal and denies hallucinations Appearance: grossly normal Attitude: calm Activity / Motor Behavior: appropriate eye contact Speech: normal speech Thought Process: normal thought process Thought Content: normal thought content Attention / Concentration: attention grossly intact Insight: insight good Judgement: judgement good Debridement Note Debridement Note Wound debrided: Abdominal ulcer status post hidradenitis excision Type of Debridement: Excisional debridement Anesthesia Used: 5% Lidocaine Gel Depth: Down to and including healthy tissue and in the subcutaneous layer Percentage of wound debrided: 100 Instrument Used: 5mm curette Tissue Removed: Slough and devitalized tissue Severity: Fat Layer Exposed Amount of bleeding with debridement: Mild Bleeding Controlled with: Pressure Patient tolerated procedure: Patient tolerated procedure well Post-Debridement Measurements and Additional Note: Post-Debridement Measurements/Treatment - Nurse 1 - General Ulcer Assessment Start: 12/16/20 13:21 Freq: Status: Active Protocol: [facility]EN[facility] Activity Type Activity Date Activity User E-Sign Co-Sign Detail Recorded Client Recorded Date Recorded By Document 12/16/20 13:22 AYAN [id number] 12/16/20 13:29 AYAN 12/16/20 13:22 - Today's Visit Information Type of service Initial Visit Arrival Mode Ambulatory Patient Identification Verified (Name & Yes ) Vital Signs Temperature (97.8 F-99.1 F) 97.0 F L Temperature Source Temporal Pulse Rate (60-100) 77 Pulse Location Monitor Blood Pressure (90/60-120/80) 167/98 H Blood Pressure Mean 121 History Since Last Visit- (Skip if this is Patient's initial visit) Have you changed medications since your No last visit? Any new allergies or adverse reactions No Had a fall/change in ADL's that may No increase risk of falls Signs or symptoms of abuse and/or No neglect since last visit Have you been in the hospital since your No last visit? Has dressing in place as prescribed Yes Has compression in place as prescribed N/A Has offloadiing in place as prescribed N/A Experienced any changes in pain level or No management Left Footwear Regular Shoe Right Footwear Regular Shoe Pain Scale: 0-10 Numeric Is Patient Pain Free? Yes - Nurse 1 - General Ulcer Measurement Start: 12/16/20 13:21 Freq: Status: Active Protocol: Activity Type Activity Date Activity User E-Sign Co-Sign Detail Recorded Client Recorded Date Recorded By Document 12/16/20 13:22 KR [id number] 12/16/20 13:29 KR 12/16/20 13:22 Wound Center Nurse 1 #5 Lower Abdomen -Current Size (cm) - Length 0.3 -Current Size (cm) - Width 0.2 -Current Size (cm) - Depth 0.1 -Total Square Cm 0.06 -Exudate Amt Medium -Exudate Type Serosanguineous -Wound Margin Distinct, Outline Attached -Granulation Amt Medium (34-66%) -Granulation Quality Red -Necrosis Amt Medium (34-66%) -Necrotic Tissue Type Adherent Slough -Texture (Pauline-wound Skin Appearance) Assessed, Scarring -Moisture (Pauline-wound Skin Appearance) Assessed, Maceration -Color (Pauline-wound Skin Appearance) No Abnormality, Assessed -Temperature (Pauline-wound Skin No Abnormality Appearance) (Pt Warm) -Tenderness on Palpation (Pauline-wound No Skin Appearance) -Ulcer Cleansing Rinsed/ Irrigated with Saline -Foul Odor after Cleansing No -Anesthetic Used 5% Lidocaine Gel WC - Nurse 2 - General Ulcer CM Notes Start: 12/16/20 13:21 Freq: Status: Active Protocol: Activity Type Activity Date Activity User E-Sign Co-Sign Detail Recorded Client Recorded Date Recorded By Document 12/16/20 13:47 WI [id number] 12/16/20 13:55 WI 12/16/20 13:47 Wound Center Nurse 2 -Time 13:53 -Correct Patient Yes -Correct Side, Site, Position Yes -Correct Procedure Yes -Procedure Performed Yes -Type of Procedure Debridement -Clinical Debridement Subcutaneous -Tissue Removed Subcutaneous -Post Debridement (cm) - Length 1.0 -Post Debridement (cm) - Width 2.5 -Post Debridement (cm) - Depth 0.1 -Total Square (Post) (cm) 2.50 -Area of Debridement (cm) - Length 1.0 -Area of Debridement (cm) - Width 2.5 -Total Square (Area) (cm) 2.50 -Tunneling No -Undermining/Tunneling No -Circular Undermining No -Wound/Ulcer Outcome Not Healed -Ulcer Cleansing Rinsed/ Irrigated with Saline -Foul Odor after Cleansing No -Bioengineered Tissue No -Bleeding Controlled with Pressure -Offloading No -Treatment Response Procedure Tolerated Well -Debridement - Subq, 1st 20sq cm Yes Pain Scale: 0-10 Numeric Is Patient Pain Free? Yes - Nurse 3 - General Ulcer D/C NN Start: 12/16/20 13:21 Freq: Status: Active Protocol: Activity Type Activity Date Activity User E-Sign Co-Sign Detail Recorded Client Recorded Date Recorded By Document 12/16/20 14:40 AYAN [id number] 12/16/20 14:41 AYAN 12/16/20 14:40 Wound Care Nurse 3 #5 Lower Abdomen -Ulcer Cleansing Rinsed/ Irrigated with Saline -Primary Dressing Applied Mepilex Border, Promogran -Mepilex Border 1 -Promogran 1 Pain Scale: 0-10 Numeric Is Patient Pain Free? Yes WC - Visit Discharge Discharge Condition Stable Ambulatory Status Ambulatory Transportation Private Auto Charges/Coding Visit Charges Office Visits / Consults: [id number] OV L4 Est Procedures Integumentary [id number]: [id number] Елена subq tissue 20 sq cm/< Assessment/Plan Assessment/Plan (1) Open wound anterior abdominal wall: CODE(S): S31.109A - Unspecified open wound of abdominal wall, unspecified quadrant without penetration into peritoneal cavity, initial encounter (2) Non-healing surgical wound: CODE(S): T81.89XA - Other complications of procedures, not elsewhere classified, initial encounter (3) Morbid obesity with body mass index (BMI) of 40.0 to 44.9 in adult: CODE(S): E66.01 - Morbid (severe) obesity due to excess calories; Z68.41 - Body mass index [BMI]40.0-44.9, adult (4) Hidradenitis: CODE(S): L73.2 - Hidradenitis suppurativa PLAN: Debridement performed today in clinic as annotated above. Barbara cover with [place] SAP applied. At home wound-care instructions: Daily moistened Barbara, cover with foam dressing Change dressing once daily or more frequently as needed due to contamination. Wash wounds daily with antibacterial soap and water, rinse and dry thoroughly before each dressing change. Compression: Not indicated at this time Off-loading: The patient was instructed to avoid pressure and friction on the affected areas. Reposition every 2 hours at minimum. Avoid prolonged standing and/or dangling of legs. When seated, feet should be elevated at chest level. Frequent ambulation is encouraged. Diet: Patient encouraged to increase protein intake while taking caution to avoid high carbohydrate and/or sugar intake. Given the delayed wound healing and fact that the wound has been present for over 4 weeks and has not improved with standard wound care, will apply for advanced skin substitute. Patient is a non-smoker Labs/cultures/imaging: Cultures held today. Routine baseline lab work held. Follow-up: Return to clinic in 1 week for re-evaluation. Return sooner or report to the emergency room should symptoms worsen, or new symptoms arise.
[2020-12-23 13:14] VITALS: BP 156/97; PULSE 93; TEMP 36.6
--- NOTE | 2020-12-23 22:07 | PCM.WC.PN ---
History of Present Illness Date of Service: 12/24/20 Chief Complaint: Nonhealing abdominal ulcer status post hidradenitis surgical removal History of Wound: This is a 35-year-old white male who presents to the wound healing center today for a nonhealing abdominal ulcer. He has a past medical history as listed above significant for hidradenitis with multiple surgical resections, bipolar disorder, and morbid obesity. The patient states that the ulceration occurred approximately 4 weeks ago. He has been utilizing gauze and bandages for wound care. He states that this is at the same site where he had his hidradenitis excised by Dr. Weinstein in the past. He denies any systemic or localized signs of infection at this time. He denies any other acute concerns. Past medical, family, and social history reviewed and not pertinent to the current visit and all other systems reviewed and negative with exception of those listed above. Progress of Wound: Stable?no new concerns, first application of purapply a.m. today Objective Data Objective Data Vital Signs: Vital Signs Temp Pulse BP 97.9 F 93 156/97 H 12/23/20 13:14 12/23/20 13:14 12/23/20 13:14 Charges/Coding Procedures Integumentary 150xxx-152xx: [id number] Skin sub graft trnk/arm/leg Physical Exam Const alert, oriented x3, no apparent distress, healthy appearing and well nourished General Appearance: cooperative Exam Limitations: no limitations Nutritional Appearance: obese HEENT normocephalic Head and Scalp: normal to inspection Mouth: oral and palatal mucosa normal Eyes General Eye: normal appearance of both eyes Resp normal respiratory effort, normal air movement and no use of accessory muscles Effort and Inspection: able to speak in complete sentences Auscultation: clear to auscultation bilaterally Cardio regular rate, regular rhythm, S1 normal heart sound, S2 normal heart sound, no murmurs and peripheral pulses 2+ throughout Palpation: normal PMI Rate: regular rate Heart Sounds: S1 normal and S2 normal GI normal to inspection, nondistended, normoactive bowel sounds, soft to palpation, non-tender and non-distended Palpation: soft Extremity normal to inspection and full ROM General Extremity: normal exam except as noted Skin Skin Narrative: Abdominal ulceration lower abdomen midline where prior incision from his hidradenitis surgical excision, slough and devitalized tissue present, no signs of obvious infection at this time Neuro oriented x3 and moves all extremities Sensorium / Orientation: awake, alert, oriented to person, oriented to place and oriented to time Psych mental status grossly normal, thought process normal and denies hallucinations Appearance: grossly normal Attitude: calm Activity / Motor Behavior: appropriate eye contact Speech: normal speech Thought Process: normal thought process Thought Content: normal thought content Attention / Concentration: attention grossly intact Insight: insight good Judgement: judgement good Debridement Note Debridement Note Post-Debridement Measurements and Additional Note: Post-Debridement Measurements/Treatment - Nurse 1 - General Ulcer Assessment Start: 12/16/20 13:21 Freq: Status: Active Protocol: SERENITY Activity Type Activity Date Activity User E-Sign Co-Sign Detail Recorded Client Recorded Date Recorded By Document 12/16/20 13:22 AYAN [id number] 12/16/20 13:29 KR Document 12/23/20 13:14 JAMIE [id number] 12/23/20 13:17 AK 12/16/20 12/23/20 13:22 13:14 - Today's Visit Information Type of service Initial Visit Follow-up Visit (Physician/DYE AND CHEMICAL COORDINATOR ) Arrival Mode Ambulatory Ambulatory Patient Identification Verified (Name & Yes No ) Patient Requires Transmission-Based No Precautions Safety Precautions NA Vital Signs Temperature (97.8 F-99.1 F) 97.0 F L 97.9 F Temperature Source Temporal Temporal Pulse Rate (60-100) 77 93 Pulse Location Monitor Monitor Blood Pressure (90/60-120/80) 167/98 H 156/97 H Blood Pressure Mean (mm Hg) 121 116 Source Monitor History Since Last Visit- (Skip if this is Patient's initial visit) Have you changed medications since your No No last visit? Any new allergies or adverse reactions No No Had a fall/change in ADL's that may No No increase risk of falls Signs or symptoms of abuse and/or No No neglect since last visit Have you been in the hospital since your No No last visit? Has dressing in place as prescribed Yes Yes Has compression in place as prescribed N/A N/A Has offloadiing in place as prescribed N/A N/A Experienced any changes in pain level or No No management Left Footwear Regular Shoe Regular Shoe Right Footwear Regular Shoe Regular Shoe Pain Scale: 0-10 Numeric Is Patient Pain Free? Yes - Nurse 1 - General Ulcer Measurement Start: 12/16/20 13:21 Freq: Status: Active Protocol: Activity Type Activity Date Activity User E-Sign Co-Sign Detail Recorded Client Recorded Date Recorded By Document 12/16/20 13:22 KR [id number] 12/16/20 13:29 KR Document 12/23/20 13:14 AK [id number] 12/23/20 13:17 AK 12/16/20 12/23/20 13:22 13:14 Wound Center Nurse 1 #5 Lower Abdomen -Combined with other wound No -Current Size (cm) - Length 0.3 0.2 -Current Size (cm) - Width 0.2 0.1 -Current Size (cm) - Depth 0.1 0.1 -Total Square Cm 0.06 0.02 -Photo Taken No -Tunneling No -Undermining/Tunneling No -Circular Undermining No -Change in Wound Grade/Stage No -Exudate Amt Medium None Present -Exudate Type Serosanguineous -Wound Margin Distinct, Outline Attached -Granulation Amt Medium (34-66%) None Present (0 %) -Granulation Quality Red Pale,Eleele -Slough/Fibrin No -Necrosis Amt Medium (34-66%) None Present (0 %) -Necrotic Tissue Type Adherent Slough -Structure Exposed N/A -Texture (Pauline-wound Skin Appearance) Assessed, Assessed, Scarring Scarring -Moisture (Pauline-wound Skin Appearance) Assessed, Assessed Maceration -Color (Pauline-wound Skin Appearance) No Abnormality, Assessed Assessed -Temperature (Pauline-wound Skin No Abnormality No Abnormality Appearance) (Pt Warm) (Pt Warm) -Tenderness on Palpation (Pauline-wound No Yes Skin Appearance) -Ulcer Cleansing Rinsed/ Rinsed/ Irrigated with Irrigated with Saline Saline -Foul Odor after Cleansing No -Anesthetic Used 5% Lidocaine 5% Lidocaine Gel Gel WC - Nurse 2 - General Ulcer CM Notes Start: 12/16/20 13:21 Freq: Status: Active Protocol: Activity Type Activity Date Activity User E-Sign Co-Sign Detail Recorded Client Recorded Date Recorded By Document 12/16/20 13:47 MT [id number] 12/16/20 13:55 MT Document 12/23/20 13:46 MW [id number] 12/23/20 13:52 MW 12/16/20 12/23/20 13:47 13:46 Wound Center Nurse 2 #5 Lower Abdomen -Time 13:53 13:46 -Correct Patient Yes Yes -Correct Side, Site, Position Yes Yes -Correct Procedure Yes Yes -Procedure Performed Yes Yes -Type of Procedure Debridement Debridement -Clinical Debridement Subcutaneous Subcutaneous -Tissue Removed Subcutaneous Subcutaneous -Post Debridement (cm) - Length 1.0 2.0 -Post Debridement (cm) - Width 2.5 1.0 -Post Debridement (cm) - Depth 0.1 0.1 -Total Square (Post) (cm) 2.50 2.00 -Area of Debridement (cm) - Length 1.0 2.0 -Area of Debridement (cm) - Width 2.5 1.0 -Total Square (Area) (cm) 2.50 2.00 -Tunneling No No -Undermining/Tunneling No No -Circular Undermining No No -Wound/Ulcer Outcome Not Healed Not Healed -Ulcer Cleansing Rinsed/ Rinsed/ Irrigated with Irrigated with Saline Saline -Foul Odor after Cleansing No No -Bioengineered Tissue No Yes -Type of Bioengineered Tissue PuraPly AM Disc -Expiration Date 03/08/23 -Product Lot Number [id number] -Percent Used 100 -Lot number of Saline Used [id number] -Bleeding Controlled with Pressure Pressure -Offloading No No -Treatment Response Procedure Procedure Tolerated Well Tolerated Well -Debridement - Subq, 1st 20sq cm Yes No -Apply Skin Sub - 1st 25 sq cm - Legs 1 -PuraPly AM 16mm Disc (per sq cm) 2 Pain Scale: 0-10 Numeric Is Patient Pain Free? Yes Yes - Nurse 3 - General Ulcer D/C NN Start: 12/16/20 13:21 Freq: Status: Active Protocol: Activity Type Activity Date Activity User E-Sign Co-Sign Detail Recorded Client Recorded Date Recorded By Document 12/16/20 14:40 KR [id number] 12/16/20 14:41 KR Document 12/23/20 14:02 AYAN [id number] 12/23/20 14:02 KR 12/16/20 12/23/20 14:40 14:02 Wound Care Nurse 3 #5 Lower Abdomen -Ulcer Cleansing Rinsed/ Irrigated with Saline -Primary Dressing Applied Mepilex Border, Promogran Promogran -Primary Dressing Covered/Secured with Dry Gauze, Secured with Tape -Mepilex Border 1 -Promogran 1 1 Pain Scale: 0-10 Numeric Is Patient Pain Free? Yes Yes WC - Visit Discharge Discharge Condition Stable Stable Ambulatory Status Ambulatory Ambulatory Transportation Private Auto Private Auto Additional Wound Wound debrided: Midline abdominal wound Laterality: Not Applicable Type of Debridement: Excisional debridement Anesthesia Used: 5% Lidocaine Gel Depth: in the subcutaneous layer Percentage of wound debrided: 100 Instrument Used: 5mm curette Tissue Removed: Slough and devitalized tissue Severity: Fat Layer Exposed Amount of bleeding with debridement: Mild Bleeding Controlled with: Pressure Patient tolerated procedure: Patient tolerated procedure well Assessment/Plan Assessment/Plan (1) Open wound anterior abdominal wall: CODE(S): S31.109A - Unspecified open wound of abdominal wall, unspecified quadrant without penetration into peritoneal cavity, initial encounter (2) Non-healing surgical wound: CODE(S): T81.89XA - Other complications of procedures, not elsewhere classified, initial encounter (3) Morbid obesity with body mass index (BMI) of 40.0 to 44.9 in adult: CODE(S): E66.01 - Morbid (severe) obesity due to excess calories; Z68.41 - Body mass index [BMI]40.0-44.9, adult (4) Hidradenitis: CODE(S): L73.2 - Hidradenitis suppurativa PLAN: Debridement performed today in clinic as annotated above. First application of purapply applied today, 100% of the product was utilized and covered with wound veil and secured with Steri-Strips and moistened with a light layer of hydrogel. Cover with foam dressing for protection. Leave main dressing on for 1 week, if it falls off may go back to utilizing Bar[facility]ra At home wound-care instructions: See above Compression: Not indicated at this time Off-loading: The patient was instructed to avoid pressure and friction on the affected areas. Reposition every 2 hours at minimum. Avoid prolonged standing and/or dangling of legs. When seated, feet should be elevated at chest level. Frequent ambulation is encouraged. Diet: Patient encouraged to increase protein intake while taking caution to avoid high carbohydrate and/or sugar intake. Given the delayed wound healing and fact that the wound has been present for over 4 weeks and has not improved with standard wound care, will apply for advanced skin substitute. Patient is a non-smoker Labs/cultures/imaging: Cultures held today. Routine baseline lab work held. Follow-up: Return to clinic in 1 week for re-evaluation. Return sooner or report to the emergency room should symptoms worsen, or new symptoms arise.
[2020-12-30 12:59] VITALS: BP 153/101; PULSE 87; TEMP 36.3
--- NOTE | 2020-12-30 17:06 | PN.PCM_ITS ---
History of Present Illness Date of Service: 12/30/20 Chief Complaint: Nonhealing abdominal ulcer status post hidradenitis surgical removal History of Wound: This is a 35-year-old white male who presents to the wound healing center today for a nonhealing abdominal ulcer. He has a past medical history as listed above significant for hidradenitis with multiple surgical resections, bipolar disorder, and morbid obesity. The patient states that the ulceration occurred approximately 4 weeks ago. He has been utilizing gauze and bandages for wound care. He states that this is at the same site where he had his hidradenitis excised by Dr. Weinstein in the past. He denies any systemic or localized signs of infection at this time. He denies any other acute concerns. Past medical, family, and social history reviewed and not pertinent to the current visit and all other systems reviewed and negative with exception of those listed above. Progress of Wound: Site is healed without any signs of infection at this time. Objective Data Objective Data Vital Signs: Vital Signs Temp Pulse BP 97.3 F L 87 153/101 H 12/30/20 12:59 12/30/20 12:59 12/30/20 12:59 Charges/Coding Visit Charges Office Visits / Consults: 86347 OV L3 Est Physical Exam Const alert, oriented x3, no apparent distress, healthy appearing and well nourished General Appearance: cooperative Exam Limitations: no limitations Nutritional Appearance: obese HEENT normocephalic Head and Scalp: normal to inspection Mouth: oral and palatal mucosa normal Eyes General Eye: normal appearance of both eyes Resp normal respiratory effort, normal air movement and no use of accessory muscles Effort and Inspection: able to speak in complete sentences Auscultation: clear to auscultation bilaterally Cardio regular rate, regular rhythm, S1 normal heart sound, S2 normal heart sound, no murmurs and peripheral pulses 2+ throughout Palpation: normal PMI Rate: regular rate Heart Sounds: S1 normal and S2 normal GI normal to inspection, nondistended, normoactive bowel sounds, soft to palpation, non-tender and non-distended Palpation: soft Extremity normal to inspection and full ROM General Extremity: normal exam except as noted Skin Skin Narrative: Abdominal ulceration lower abdomen midline where prior incision from his hidradenitis surgical excision, site is now healed with no signs of obvious infection at this time Neuro oriented x3 and moves all extremities Sensorium / Orientation: awake, alert, oriented to person, oriented to place and oriented to time Psych mental status grossly normal, thought process normal and denies hallucinations Appearance: grossly normal Attitude: calm Activity / Motor Behavior: appropriate eye contact Speech: normal speech Thought Process: normal thought process Thought Content: normal thought content Attention / Concentration: attention grossly intact Insight: insight good Judgement: judgement good Assessment/Plan Assessment/Plan (1) Open wound anterior abdominal wall: CODE(S): S31.109A - Unspecified open wound of abdominal wall, unspecified quadrant without penetration into peritoneal cavity, initial encounter (2) Non-healing surgical wound: CODE(S): T81.89XA - Other complications of procedures, not elsewhere classified, initial encounter (3) Morbid obesity with body mass index (BMI) of 40.0 to 44.9 in adult: CODE(S): E66.01 - Morbid (severe) obesity due to excess calories; Z68.41 - Body mass index [BMI]40.0-44.9, adult (4) Hidradenitis: CODE(S): L73.2 - Hidradenitis suppurativa PLAN: Site is healed without any signs of infection at this time, for wound protection cover with Adaptic and gauze for the next week At home wound-care instructions: See above Compression: Not indicated at this time Off-loading: The patient was instructed to avoid pressure and friction on the affected areas. Reposition every 2 hours at minimum. Diet: Patient encouraged to increase protein intake while taking caution to avoid high carbohydrate and/or sugar intake. Patient is a non-smoker Follow-up: Patient discharged from the wound healing center and return if new wounds recur. Return sooner or report to the emergency room should symptoms worsen, or new symptoms arise. This note was generated with [employer] dictation software. It may contain incorrect words, spelling, and punctuation that were not noted in checking the note before signing. I have spent 25 minutes today reviewing labs, records, and history. Time includes coordinating care, interpretation of tests, and counseling the patient/family. This also includes time I spent with the patient for exam, treatment plan, and education as well as documenting clinical information in the electronic health record.
== END 2020-12-30 13:34 | disposition home or self-care (01) ==
LOC: WC 13:00
PROVIDERS: Visit Provider Nurse Practitioner Family
DX: S31.109A Unspecified open wound of abdominal wall, unspecified quadrant without penetration into peritoneal cavity, initial encounter (principal); T81.89XA Other complications of procedures, not elsewhere classified, initial encounter; E66.01 Morbid (severe) obesity due to excess calories; L73.2 Hidradenitis suppurativa; Z68.41 Body mass index [BMI] 40.0-44.9, adult; F31.9 Bipolar disorder, unspecified; I10 Essential (primary) hypertension; J45.909 Unspecified asthma, uncomplicated; D64.9 Anemia, unspecified; Z79.899 Other long term (current) drug therapy
CPT/HCPCS: 11042; 15271; 99213; Q4196; G0463